=== PATIENT | female | born 1935 | race Caucasian/White ===

== ENCOUNTER → 2016-06-23 | Outpatient (CLI) | payer OTHER ==
[2016-04-07 13:32] VITALS: BP 117/61
== END ==
LOC: RAD 13:25
PROVIDERS: ATTEND Internal Medicine Cardiovascular Disease
DX: I42.8 Other cardiomyopathies (principal)
CPT/HCPCS: 93306

== ENCOUNTER → 2017-03-08 | Outpatient (CLI) | payer OTHER ==
[2016-04-07 13:32] VITALS: BP 117/61
[2017-03-08 09:47] LABS: BASOPHILS % (AUTO) 0.7 % (0.2-1.0); HEMATOCRIT 39.8 % (36.0-47.0); HEMOGLOBIN 13.5 g/dL (12.0-16.0); MEAN CORPUSCULAR HEMOGLOBIN 31.5 pg (27.0-34.0); MEAN CORPUSCULAR VOLUME 92.7 fL (80.0-100.0); MEAN PLATELET VOLUME 8.1 fL (7.4-11.0); MONOCYTES # (AUTO) 0.5 x10^3/uL (0.3-0.8); MONOCYTES % (AUTO) 8.6 % (0.0-13.0); NEUTROPHILS % (AUTO) 72.7 % (42.0-75.0); PLATELET COUNT 119 X10^3/uL (150.0-450.0); RED BLOOD COUNT 4.29 X10^6/uL (3.5-5.4); RED CELL DISTRIBUTION WIDTH 14.2 % (11.6-16.5); WHITE BLOOD COUNT 5.5 X10^3/uL (3.6-10.0)
[2017-03-08 10:03] LABS: HEMOGLOBIN A1C 5.8 % (4.5-6.2)
[2017-03-08 10:17] LABS: ALANINE AMINOTRANSFERASE 38 Units/L (12-78); ALBUMIN 3.8 g/dL (3.4-5.0); ALKALINE PHOSPHATASE 45 Units/L (46-116); ASPARTATE AMINO TRANSFERASE 25 Units/L (15-37); BLOOD UREA NITROGEN 18 mg/dL (7-18); CALCIUM 9.1 mg/dL (8.5-10.1); CARBON DIOXIDE 25.3 mmol/L (21-32); CHLORIDE 106 mmol/L (98-107); CHOL/HDL RATIO 2.3 (0.0-5.0); CHOLESTEROL 108 mg/dL (0-200); COR NA(FOR HYPERGLY) 142 mmol/L (136-145); CREATININE 1.08 mg/dL (0.55-1.02); FREE T4 (FREE THYROXINE) 1.37 ng/dL (0.76-1.46); HDL CHOLESTEROL 48 mg/dL (40-60); SODIUM 141 mmol/L (136-145); TOTAL PROTEIN 6.9 g/dL (6.4-8.2); TRIGLYCERIDES 90 mg/dL (0-150); TSH (3RD GENERATION) 0.366 uIU/mL (0.358-3.74); eGFR BLACK RACES > 60 (>60); eGFR NON BLACK RACES 52 (>60)
== END ==
LOC: LAB 08:44
PROVIDERS: ATTEND Internal Medicine Hematology & Oncology
DX: C92.10 Chronic myeloid leukemia, BCR/ABL-positive, not having achieved remission (principal); E11.9 Type 2 diabetes mellitus without complications; E03.8 Other specified hypothyroidism; Z79.899 Other long term (current) drug therapy
CPT/HCPCS: 36415; 80053; 80061; 81206; 83036; 84439; 84443; 85025

== ENCOUNTER → 2017-04-19 | Outpatient (CLI) | payer OTHER ==
[2016-04-07 13:32] VITALS: BP 117/61
== END ==
LOC: LAB 09:03
PROVIDERS: ATTEND Internal Medicine Gastroenterology
DX: K64.0 First degree hemorrhoids (principal)
CPT/HCPCS: 82270

== ENCOUNTER → 2017-06-12 | Outpatient (CLI) | payer OTHER ==
[2016-04-07 13:32] VITALS: BP 117/61
--- NOTE | 2017-06-12 15:31 | RAD ---
History: Right knee pain Study: Three views of the right knee including AP and lateral and oblique projections Comparison: May 14 2014 Findings: There is narrowing of the femoropatellar joint space with moderate osteophyte formation. Th ere is no knee joint effusion. There are moderate to severe lateral joint space compartment osteophyt es with joint space narrowing. There is an apparent loose body anteriorly in the knee joint that is i ncreased in size since 2014. There is prominent atherosclerotic calcification. No fracture is demonst rated. Impression: 1. 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 Increasing size of an anterior and apparently lateral loose body Reported By:
== END ==
LOC: RAD 14:46
PROVIDERS: ATTEND Internal Medicine
DX: M17.11 Unilateral primary osteoarthritis, right knee (principal)
CPT/HCPCS: 73560

== ENCOUNTER 2017-07-21 13:49 | Observation (INO) | payer OTHER ==
[2017-07-21 14:01] VITALS: BMI 29.9
[2017-07-21 14:21] LABS: BASOPHILS % (AUTO) 0.7 % (0.2-1.0); HEMATOCRIT 38.9 % (36.0-47.0); LYMPHOCYTES # (AUTO) 1.7 X10^3/uL (1.3-2.9); LYMPHOCYTES % (AUTO) 27.4 % (21.0-51.0); MEAN CORPUSCULAR HEMOGLOBIN 34.2 pg (27.0-34.0); MEAN CORPUSCULAR HGB CONC 35.9 g/dL (33.0-35.0); MEAN CORPUSCULAR VOLUME 95.2 fL (80.0-100.0); MEAN PLATELET VOLUME 7.9 fL (7.4-11.0); MONOCYTES # (AUTO) 0.5 x10^3/uL (0.3-0.8); MONOCYTES % (AUTO) 8.6 % (0.0-13.0); NEUTROPHILS # (AUTO) 3.9 x10^3/uL (2.2-4.8); NEUTROPHILS % (AUTO) 63.3 % (42.0-75.0); PLATELET COUNT 157 X10^3/uL (150.0-450.0); RED BLOOD COUNT 4.09 X10^6/uL (3.5-5.4); RED CELL DISTRIBUTION WIDTH 14.3 % (11.6-16.5); WHITE BLOOD COUNT 6.1 X10^3/uL (3.6-10.0)
--- NOTE | 2017-07-21 14:25 | DR.AMS ---
HPI - Time Seen Time seen: 14:05 - PCP Primary Care Physician: JOSELYN - Complaint Cheif Complaint Doctors Comments: Patient presented to the ED for evaluation of uncontrollable shaking. Family member states that this has happend before. Family members reports that she was short of breath. Chief Complaint:: FAMILY MEMBER STATES PT CAN'T BREATHE PT HELPED OUT OF CAR AND PT VERY ANXIOUS AND HYERVENITLATING AND SHE STATES " I WAS GETTING CLOTHING OUT OF THE DRYER AND I LOST MY BREATHE" Self Treatment fo Chief Complaint: LUNGS CLEAR, NO DISTRESS AND PT DENIES ANY PAIN ,,,, - Source History Provided: Patient, Family Member - Mode of Arrival Mode of Arrival: Wheelchair - Timing Onset of Chief Complaint: 07/21/17 PMH - PMH Past Medical History: Yes Past Medical History: Arthritis, Coronary Artery Disease, Diabetes, Hypertension , Hypothyroidism Past Surgical History: Yes Surgical History: Appendectomy, Bowel Resection, Cholecystectomy, Hysterectomy - Family History History of Family Medical Conditions: Yes Family Medical History: Diabetes Mellitus, Cancer, [place], Sudden Cardiac , Hypertension - Social History Does patient currently use any type of tobacco product: No Have you used tobacco products in the last 12 months: No Type of Tobacco Use: None Does any household member use tobacco: No Alcohol Use: None Do you use any recreational Drugs:: No Lives With: Family Lives Where: Home - infectious screening In the last 2 months have you had wt loss of >10#?: NO Have you had fever, night sweats or hemotysis?: No Have you traveled outside the country in the last 6 months?: No Isolation: Standard ROS - Review of Systems Eyes: No Symptoms Reported ENTM: No Symptoms Reported Respiratoy: No Symptoms Reported Cardiovascular: No Symptoms Reported Gastrointestinal/Abdominal: No Symptoms Reported Genitourinary: No Symptoms Reported Neurological: No Symptoms Reported Musculoskeletal: No Symptoms Reported Integumentary: No Symptoms Reported Hematologic/Lymphatic: No Symptoms Reported Endocrine: No Symptoms Reported Psychiatric: No Symptoms Reported All Other Systems: Reviewed and Negative PE - Vitals Vital Signs: Temp Pulse Resp BP BP BP BP 07/21/17 14:39 153/72 07/21/17 13:56 97.6 F 72 20 182/107 04/07/16 12:00 117/61 117/61 04/07/16 04:00 133/59 08/08/15 12:00 86/40 Pulse Ox 07/21/17 14:39 07/21/17 13:56 99 04/07/16 12:00 04/07/16 04:00 08/08/15 12:00 - General Limitations: No Limitations General Appearance: Alert, In No Apparent Distress - Head Head Exam: Normal Inspection, Atraumatic Head Exam Physical: Laceration - Eyes Eye exam: Normal Appearance Pupils: Regular, Round: Left, Reactive: Left, Non Reactive/Fixed: Right - ENT ENT Exam: Normal Exam, Normal Oropharynx External Ear Exam: Normal External Inspection TM/Canal Exam: Bilateral Normal Nose Exam: Normal Nose Exam Mouth Exam: Normal Inspection Throat Exam: Normal Inspection - Neck Neck Exam: Normal Inspection, Full ROM - Chest Chest Inspection: Normal Inspection, Symmetric Chest Wall Rise - Respiratory Respiratory Exam: Normal Lung Sounds Bilat Respiratory Exam: Bilateral Clear to Auscultation - Cardiovascular Cardiovascular Exam: Regular Rate, Normal Rhythm - Abdominal Exam Abdominal Exam: Normal Inspection, Normal Bowel Sounds Abdominal Tenderness: negative: RUQ, RLQ, LUQ, LLQ, Epigastrium, Suprapubic, Diffuse, Mild, Moderate, Severe, Other - Extremities Extremities Exam: Normal Inspection, Full ROM - Back Back Exam: Normal Inspection, Full ROM - Neurological Neurological Exam: Alert, Oriented X3, CN II-XII Intact Speech: Fluid Speech Cranial Nerve Exam: EOM Function (II, III, IV, ): Normal Cerebellar Function: Finger to Nose: Normal Motor Strength - LUE: 3/5 Motor Strength - RUE: 3/5 Motor Strength - LLE: 3/5 Sensory Exam Upper Extremity: Light Touch: Normal DTR: achilles tendon (L): 2+ - Psychological Psychiatric Exam: Anxious - Skin Skin Exam: Warm, Dry, Intact MDM - Differential Diagnosis Metabolic: Dehydration Course - Reevaluation 1st: Improved - Consultation Called: 15:20 (Dr Olson agreed to admit for further evalaution) ROR - Labs Reviewed Result Diagrams: 07/21/17 14:02 07/21/17 14:02 Laboratory: WBC 6.1 X10^3/uL (3.6-10.0) 07/21/17 14:02 RBC 4.09 X10^6/uL (3.5-5.4) 07/21/17 14:02 Hgb 14.0 g/dL (12.0-16.0) 07/21/17 14:02 Hct 38.9 % (36.0-47.0) 07/21/17 14:02 MCV 95.2 fL (80.0-100.0) 07/21/17 14:02 MCH 34.2 pg (27.0-34.0) H 07/21/17 14:02 MCHC 35.9 g/dL (33.0-35.0) H 07/21/17 14:02 RDW 14.3 % (11.6-16.5) 07/21/17 14:02 Plt Count 157 X10^3/uL (150.0-450.0) 07/21/17 14:02 MPV 7.9 fL (7.4-11.0) 07/21/17 14:02 Neut % (Auto) 63.3 % (42.0-75.0) 07/21/17 14:02 Lymph % (Auto) 27.4 % (21.0-51.0) 07/21/17 14:02 Otero % (Auto) 8.6 % (0.0-13.0) 07/21/17 14:02 Eos % (Auto) 0.0 % (0.9-2.9) L 07/21/17 14:02 Baso % (Auto) 0.7 % (0.2-1.0) 07/21/17 14:02 Neut # (Auto) 3.9 x10^3/uL (2.2-4.8) 07/21/17 14:02 Lymph # (Auto) 1.7 X10^3/uL (1.3-2.9) 07/21/17 14:02 Otero # (Auto) 0.5 x10^3/uL (0.3-0.8) 07/21/17 14:02 Eos # (Auto) 0.0 x10^3/uL (0.0-0.2) 07/21/17 14:02 Baso # (Auto) 0.0 X10^3/uL (0.0-0.1) 07/21/17 14:02 Absolute Nucleated RBC 0.1 /100WBC 07/21/17 14:02 D-Dimer 1040 ng/mL (0-400) H* 07/21/17 14:02 Sodium 134 mmol/L (136-145) L 07/21/17 14:02 Corrected Sodium 136 mmol/L (136-145) 07/21/17 14:02 Potassium 2.6 mmol/L (3.5-5.1) L* 07/21/17 14:02 Chloride 95 mmol/L (98-107) L 07/21/17 14:02 Carbon Dioxide 22.6 mmol/L (21-32) 07/21/17 14:02 BUN 17 mg/dL (7-18) 07/21/17 14:02 Creatinine 1.37 mg/dL (0.55-1.02) H 07/21/17 14:02 Est GFR (MDRD) Af Amer 48 (>60) L 07/21/17 14:02 Est GFR (MDRD) Non-Af 39 (>60) L 07/21/17 14:02 Glucose 171 mg/dL (65-99) H 07/21/17 14:02 Calcium 9.1 mg/dL (8.5-10.1) 07/21/17 14:02 Corrected Calcium TNP 07/21/17 14:02 Magnesium 1.6 mg/dL (1.7-2.9) L 07/21/17 14:02 Total Bilirubin 1.10 mg/dL (0.2-1.0) H 07/21/17 14:02 AST 32 Units/L (15-37) 07/21/17 14:02 ALT 39 Units/L (12-78) 07/21/17 14:02 Alkaline Phosphatase 46 Units/L (46-116) 07/21/17 14:02 Creatine Kinase 87 Units/L (26-192) 07/21/17 14:02 CK-MB (CK-2) 2.5 ng/mL (0-4.0) 07/21/17 14:02 CK/CKMB % Calc 2.9 % (<4) 07/21/17 14:02 Troponin I < 0.02 ng/mL (0-1.5) 07/21/17 14:02 Total Protein 7.9 g/dL (6.4-8.2) 07/21/17 14:02 Albumin 4.7 g/dL (3.4-5.0) 07/21/17 14:02 Globulin 3.2 g/dL (2.5-4.5) 07/21/17 14:02 Albumin/Globulin Ratio 1.5 Ratio (1.1-2.1) 07/21/17 14:02 - XRAY XRAY Interpreted by: Radiologist (Chest: Continued normal heart size with essentially clear lungs and pleural spaces. Multiple metallic artifacts are projected over the chest. There is no change in position of cardiac pacemaker although clothing artifacts partly obscure the ventricular lead. Impression: No acute chest findings.) - Diagnosis Discharge Problem: Hypokalemia, Elevated D-Dimer r/o PE, Dyspnea - Discharge Plan Condition: Stable - Follow ups/Referrals Follow ups/Referrals: JOSELYN AGUILERA [Primary Care Provider] - 3 days - Instructions
[2017-07-21 14:41] LABS: ALANINE AMINOTRANSFERASE 39 Units/L (12-78); ALBUMIN 4.7 g/dL (3.4-5.0); ALKALINE PHOSPHATASE 46 Units/L (46-116); ASPARTATE AMINO TRANSFERASE 32 Units/L (15-37); BLOOD UREA NITROGEN 17 mg/dL (7-18); CALCIUM 9.1 mg/dL (8.5-10.1); CARBON DIOXIDE 22.6 mmol/L (21-32); CHLORIDE 95 mmol/L (98-107); CKMB % 2.9 % (<4); COR NA(FOR HYPERGLY) 136 mmol/L (136-145); CREATINE KINASE 87 Units/L (26-192); CREATINE KINASE MB 2.5 ng/mL (0-4.0); CREATININE 1.37 mg/dL (0.55-1.02); MAGNESIUM 1.6 mg/dL (1.7-2.9); SODIUM 134 mmol/L (136-145); TOTAL PROTEIN 7.9 g/dL (6.4-8.2); TROPONIN I < 0.02 ng/mL (0-1.5); eGFR BLACK RACES 48 (>60); eGFR NON BLACK RACES 39 (>60)
--- NOTE | 2017-07-21 14:44 | RAD ---
Examination: Portable AP chest History: SOB Comparison reference 03/11/2016 Findings: Continued normal heart size with essentially clear lungs and pleural spaces. Multiple metal lic artifacts are projected over the chest. There is no change in position of cardiac pacemaker altho ugh clothing artifacts partly obscure the ventricular lead. Impression: No acute chest findings. See above. Reported By:
[2017-07-21] MEDS ORDERED: K-LYTE EFFERVESCENT ONE (14:46)
[2017-07-21] MEDS ORDERED: K-LYTE EFFERVESCENT PO ONE (15:00)
[2017-07-21] MEDS ORDERED: NS IV SCH ×4 (16:00→22:50)
[2017-07-21] MEDS ORDERED: POTASSIUM CHLORIDE IV SCH ×4 (16:00→22:50)
[2017-07-21] MEDS ORDERED: NS + KCL 20 MEQ/L 1,000 ML IV ONE (16:02)
[2017-07-21] MEDS ORDERED: HumuLIN R SUBCUT PRN (16:15)
[2017-07-21 16:57] LABS: BILIRUBIN,URINE NEGATIVE (NEGATIVE); BLOOD/HEMOGLOBIN,URINE NEGATIVE (NEGATIVE); GLUCOSE, URINE NEGATIVE (NEGATIVE); KETONES,URINE NEGATIVE (NEGATIVE); LEUKOCYTE ESTERASE ,URINE NEGATIVE (NEGATIVE); NITRITES,URINE NEGATIVE (NEGATIVE); PROTEIN,URINE NEGATIVE (NEGATIVE); UROBILINOGEN,URINE NORMAL (NORMAL)
[2017-07-21 16:59] LABS: APPEARANCE,URINE CLEAR (CLEAR); COLOR,URINE YELLOW (YELLOW)
[2017-07-21] MEDS ORDERED: SNACK - Diabetic Appropriate PO SCH (20:00)
[2017-07-22 05:26] LABS: BASOPHILS % (AUTO) 0.8 % (0.2-1.0); EOSINOPHILS % (AUTO) 0.1 % (0.9-2.9); HEMATOCRIT 32.8 % (36.0-47.0); HEMOGLOBIN 11.8 g/dL (12.0-16.0); LYMPHOCYTES # (AUTO) 1.1 X10^3/uL (1.3-2.9); MEAN CORPUSCULAR HEMOGLOBIN 34.1 pg (27.0-34.0); MEAN CORPUSCULAR HGB CONC 36.1 g/dL (33.0-35.0); MEAN CORPUSCULAR VOLUME 94.6 fL (80.0-100.0); MEAN PLATELET VOLUME 7.6 fL (7.4-11.0); MONOCYTES # (AUTO) 0.5 x10^3/uL (0.3-0.8); NEUTROPHILS % (AUTO) 56.1 % (42.0-75.0); PLATELET COUNT 122 X10^3/uL (150.0-450.0); RED BLOOD COUNT 3.47 X10^6/uL (3.5-5.4); RED CELL DISTRIBUTION WIDTH 14.2 % (11.6-16.5); WHITE BLOOD COUNT 3.6 X10^3/uL (3.6-10.0)
[2017-07-22 05:34] LABS: ALANINE AMINOTRANSFERASE 28 Units/L (12-78); ALBUMIN 3.3 g/dL (3.4-5.0); ALKALINE PHOSPHATASE 34 Units/L (46-116); ASPARTATE AMINO TRANSFERASE 22 Units/L (15-37); BLOOD UREA NITROGEN 11 mg/dL (7-18); CALCIUM 7.7 mg/dL (8.5-10.1); CARBON DIOXIDE 27.8 mmol/L (21-32); CHLORIDE 102 mmol/L (98-107); COR CA(FOR HYPOALB) 8.3 mg/dL (8.5-10.1); COR NA(FOR HYPERGLY) 137 mmol/L (136-145); CREATININE 0.93 mg/dL (0.55-1.02); SODIUM 137 mmol/L (136-145); TOTAL PROTEIN 5.9 g/dL (6.4-8.2); eGFR BLACK RACES > 60 (>60); eGFR NON BLACK RACES > 60 (>60)
[2017-07-22] MEDS ORDERED: NS 1000 ML 1,000 ML IV SCH (09:00)
[2017-07-22] MEDS ORDERED: K-DUR TAB 20 MEQ PO SCH (09:00)
[2017-07-22 10:50] LABS: BILIRUBIN,URINE NEGATIVE (NEGATIVE); BLOOD/HEMOGLOBIN,URINE NEGATIVE (NEGATIVE); GLUCOSE, URINE NEGATIVE (NEGATIVE); KETONES,URINE NEGATIVE (NEGATIVE); LEUKOCYTE ESTERASE ,URINE 1+ (NEGATIVE); NITRITES,URINE NEGATIVE (NEGATIVE); PROTEIN,URINE 1+ (NEGATIVE); UROBILINOGEN,URINE 1+ (NORMAL)
[2017-07-22 10:56] LABS: APPEARANCE,URINE CLEAR (CLEAR); COLOR,URINE YELLOW (YELLOW)
[2017-07-22 11:07] LABS: RBC,URINE NONE SEEN /HPF (NONE SEEN)
[2017-07-22 11:08] LABS: BACTERIA,URINE TRACE /HPF (NEGATIVE); HYALINE CASTS, URINE RARE /LPF (NEGATIVE); MUCUS,URINE MODERATE /HPF (NEGATIVE); SQUAMOUS EPITHELIAL CELL,UR MANY /HPF (NEGATIVE)
--- NOTE | 2017-07-22 12:43 | CT ---
HISTORY: Shortness of breath Study: CTA chest for pulmonary embolus Comparison: None Technique: Axial post-contrast images with coronal, sagittal, and three-dimensional maximum intensity projection images obtained and evaluated. Dose reduction procedures were used with mA/kv adjusted fo r body size. Findings: There is no evidence for acute pulmonary thromboembolic disease. Examination of the mediastinum demo nstrated no evidence for mediastinal masses, enlarged mediastinal or enlarged hilar adenopathy or ple ural effusions. The thoracic aorta is within normal limits. Coronary artery calcifications are presen t. No chest wall or axillary abnormality is identified. Those portions of the upper abdominal organs visualized were within normal limits. Incidental note was made of bilateral adrenal adenomas. Examina tion of the lung dobbs demonstrated no significant nodules, masses, alveolar infiltrates, areas of c onsolidation, peribronchial thickening, or bronchiectasis. IMPRESSION: No evidence for acute pulmonary thromboembolic disease Lungs clear Bilateral adrenal adenomas, benign Reported By:
[2017-07-22] MEDS: MAGNESIUM SULFATE 1 GM/100 mL PREMIX 2 GM/200 ML BAG IV SCH ×2 (15:23→16:23)
[2017-07-22] MEDS ORDERED: MAGNESIUM SULFATE 1 GM/100 mL PREMIX 2 GM/200 ML BAG IV ONE (15:23)
[2017-07-22] MEDS ORDERED: LEVAQUIN TAB 500 MG PO SCH (17:00)
[2017-07-22 17:56] VITALS: BP 118/58
== END 2017-07-22 17:56 | disposition home or self-care (01) | DRG 641 ==
LOC: ER 13:49 → INTOOBSV 15:29 → ICU 15:29
PROVIDERS: ADMIT Internal Medicine; ATTEND Internal Medicine
DX: E87.6 Hypokalemia (principal); C94.80 Other specified leukemias not having achieved remission; R06.09 Other forms of dyspnea; R53.1 Weakness; I10 Essential (primary) hypertension; E03.8 Other specified hypothyroidism; K52.89 Other specified noninfective gastroenteritis and colitis; I25.10 Atherosclerotic heart disease of native coronary artery without angina pectoris; E11.65 Type 2 diabetes mellitus with hyperglycemia; Z79.01 Long term (current) use of anticoagulants; R94.31 Abnormal electrocardiogram [ECG] [EKG]; Z79.899 Other long term (current) drug therapy; R94.4 Abnormal results of kidney function studies
CPT/HCPCS: 36415; 71045; 71275; 80053; 81001; 81003; 82550; 82553; 83735; 84132; 84484; 85025; 85378; 93005; 93010; 96365; 96367; 99284; A4216; A4222; G0378; J3480

== ENCOUNTER 2018-08-28 14:54 | Observation (INO) ==
[2018-08-28 17:03] VITALS: BMI 33.0
[2018-08-28] MEDS ORDERED: ZOFRAN INJ 4 MG VIAL IVP PRN (17:05)
--- NOTE | 2018-08-28 17:09 | DR.H&P ---
H&P - History & Physical for Day of: H&P Date: 08/28/18 - Chief Complaint Chief Complaint: intractable abdominal pain, intractable n/v. weakness, dehydration - History of Present Illness History of Present Illness: 82 WF DIRECT ADMIT WITH EPIGASTRIC TENDERNESS CO N/V WITH POOT APPETITE. PT STATES SHE CANNOT EAT DUE TO SEVERE NAUSEA AND VOMITING. PT HAD CT ABD PELVIS ON 07/31 WITH ABNORMAL FINDINGS. PT HAS HX LEUKEMIA. PT HAS BEEN ON PO ZANTAC AND BENTYL WITHOUT IMPROVEMENT. - Past Medical History Past Medical History: Arthritis, Coronary Artery Disease, Diabetes, Hypertension, Hypothyroidism Additional Medical History: S/P PACEMAKER. LEUKEMIA - Past Surgical History Surgical History: Appendectomy, Bowel Resection, Cholecystectomy, Hysterectomy, Other - Family History Family Medical History: Diabetes Mellitus, Cancer, ID, Coronary Artery Disease, Heart Failure, Hypertension - Social History Does patient currently use any type of tobacco product: No Have you used tobacco products in the last 12 months: No Type of Tobacco Use: Cigarettes Does any household member use tobacco: No Alcohol Use: None Drug Use: Prescription Drugs - Medications Home Medications: No Known Drug Allergies Allergy (Verified 07/21/17 13:56) - Review of Systems Constitutional: Weakness Eyes: No Symptoms Reported ENT: No Symptoms Reported Respiratory: No Symptoms Reported Cardiovascular: No Symptoms Reported Gastrointestinal: Nausea, Vomiting, Abdominal Pain Genitourinary: No Symptoms Reported Musculoskeletal: No Symptoms Reported Skin: No Symptoms Reported Neurological: Weakness - Physical Exam Vital Signs: Blood Pressure [Left Calf] 86/40 Blood Pressure [Right Arm] 118/58 Blood Pressure [Left Arm] 161/71 Blood Pressure 118/58 Oriented: Normal Eyes: Normal, Diplopia Nose: Normal Throat: Normal Respiratory: Clear Throughout Cardiovascular: Normal, Other (PACE MAKER PRESENT) : Normal Auscultation: Bowel Sounds: Normal Palpation: Other (HIATAL HERNIA) Tenderness: Epigastric Skin: Decreased Turgur Musculoskeletal: Normal Psychiatric: Anxiety Affect: Anxious Speech Pattern: Clear, Appropriate - Assessment/Plan (1) Epigastric abdominal pain Status: Acute Plan: ADMIT, NPO AFTER MID NIGHT. GI CONSULT, PPI THERAPY. ADMISSION LABS, RENAL US DUE RENAL MASS ON CT 07/31 AT [facility]. IV HYDRATION, PAIN AND NAUSEA CONTROL (2) Nausea & vomiting Status: Acute - Allergies Allergies/Adverse Reactions: Allergies Allergy/AdvReac Type Severity Reaction Status Date / Time No Known Drug Allergies Allergy Verified 07/21/17 13:56
[2018-08-28 17:27] LABS: BASOPHILS % (AUTO) 0.8 % (0.2-1.0); EOSINOPHILS % (AUTO) 0.1 % (0.9-2.9); HEMATOCRIT 35.3 % (36.0-47.0); HEMOGLOBIN 12.2 g/dL (12.0-16.0); LYMPHOCYTES # (AUTO) 0.8 X10^3/uL (1.3-2.9); LYMPHOCYTES % (AUTO) 20.3 % (21.0-51.0); MEAN CORPUSCULAR HEMOGLOBIN 33.3 pg (27.0-34.0); MEAN CORPUSCULAR HGB CONC 34.6 g/dL (33.0-35.0); MEAN CORPUSCULAR VOLUME 96.1 fL (80.0-100.0); MEAN PLATELET VOLUME 7.4 fL (7.4-11.0); MONOCYTES # (AUTO) 0.4 x10^3/uL (0.3-0.8); MONOCYTES % (AUTO) 11.3 % (0.0-13.0); NEUTROPHILS # (AUTO) 2.7 x10^3/uL (2.2-4.8); NEUTROPHILS % (AUTO) 67.5 % (42.0-75.0); PLATELET COUNT 138 X10^3/uL (150.0-450.0); RED BLOOD COUNT 3.67 X10^6/uL (3.5-5.4); RED CELL DISTRIBUTION WIDTH 14.3 % (11.6-16.5)
[2018-08-28 17:40] LABS: ALANINE AMINOTRANSFERASE 26 Units/L (12-78); ALBUMIN 4.6 g/dL (3.4-5.0); ALKALINE PHOSPHATASE 43 Units/L (46-116); ASPARTATE AMINO TRANSFERASE 26 Units/L (15-37); BLOOD UREA NITROGEN 14 mg/dL (7-18); CALCIUM 9.5 mg/dL (8.5-10.1); CARBON DIOXIDE 26.1 mmol/L (21-32); CHLORIDE 97 mmol/L (98-107); COR NA(FOR HYPERGLY) 135 mmol/L (136-145); CREATININE 1.16 mg/dL (0.55-1.02); MAGNESIUM 1.7 mg/dL (1.7-2.9); SODIUM 135 mmol/L (136-145); TOTAL PROTEIN 7.5 g/dL (6.4-8.2); eGFR NON BLACK RACES 48 (>60)
[2018-08-28] MEDS ORDERED: NS 1000 ML 1,000 ML ONE (18:25)
[2018-08-28] MEDS: NS 1000 ML 1,000 ML IV SCH (18:32)
[2018-08-28] MEDS: PROTONIX INJ 40 MG VIAL IVP SCH (22:00)
[2018-08-28] MEDS ORDERED: PROTONIX INJ 40 MG VIAL ONE (22:23)
[2018-08-29 05:27] LABS: BASOPHILS % (AUTO) 1.2 % (0.2-1.0); EOSINOPHILS % (AUTO) 0.1 % (0.9-2.9); HEMATOCRIT 30.9 % (36.0-47.0); HEMOGLOBIN 10.9 g/dL (12.0-16.0); LYMPHOCYTES # (AUTO) 0.8 X10^3/uL (1.3-2.9); LYMPHOCYTES % (AUTO) 30.2 % (21.0-51.0); MEAN CORPUSCULAR HEMOGLOBIN 33.7 pg (27.0-34.0); MEAN CORPUSCULAR HGB CONC 35.2 g/dL (33.0-35.0); MEAN CORPUSCULAR VOLUME 95.9 fL (80.0-100.0); MEAN PLATELET VOLUME 8.2 fL (7.4-11.0); MONOCYTES # (AUTO) 0.3 x10^3/uL (0.3-0.8); MONOCYTES % (AUTO) 12.8 % (0.0-13.0); NEUTROPHILS # (AUTO) 1.4 x10^3/uL (2.2-4.8); NEUTROPHILS % (AUTO) 55.7 % (42.0-75.0); PLATELET COUNT 114 X10^3/uL (150.0-450.0); RED BLOOD COUNT 3.22 X10^6/uL (3.5-5.4); RED CELL DISTRIBUTION WIDTH 14.4 % (11.6-16.5); WHITE BLOOD COUNT 2.5 X10^3/uL (3.6-10.0)
[2018-08-29 05:41] LABS: BILIRUBIN,URINE NEGATIVE (NEGATIVE); BLOOD/HEMOGLOBIN,URINE 1+ (NEGATIVE); GLUCOSE, URINE NEGATIVE (NEGATIVE); KETONES,URINE NEGATIVE (NEGATIVE); LEUKOCYTE ESTERASE ,URINE 2+ (NEGATIVE); NITRITES,URINE NEGATIVE (NEGATIVE); PROTEIN,URINE 1+ (NEGATIVE); UROBILINOGEN,URINE NORMAL (NORMAL)
[2018-08-29 05:41] LABS: ALANINE AMINOTRANSFERASE 19 Units/L (12-78); ALBUMIN 3.5 g/dL (3.4-5.0); ALKALINE PHOSPHATASE 30 Units/L (46-116); ASPARTATE AMINO TRANSFERASE 19 Units/L (15-37); BLOOD UREA NITROGEN 12 mg/dL (7-18); CALCIUM 8.8 mg/dL (8.5-10.1); CARBON DIOXIDE 24.1 mmol/L (21-32); CHLORIDE 101 mmol/L (98-107); CREATININE 1.01 mg/dL (0.55-1.02); SODIUM 136 mmol/L (136-145); TOTAL PROTEIN 6.1 g/dL (6.4-8.2); eGFR NON BLACK RACES 56 (>60)
[2018-08-29] MEDS: NS 1000 ML 1,000 ML IV SCH ×2 (05:42→11:32)
[2018-08-29 05:51] LABS: APPEARANCE,URINE HAZY (CLEAR); BACTERIA,URINE 4+ /HPF (NEGATIVE); COLOR,URINE PALE YELLOW (YELLOW); SQUAMOUS EPITHELIAL CELL,UR RARE /HPF (NEGATIVE)
[2018-08-29] MEDS ORDERED: ROCEPHIN VIAL 1 GRAM IVP SCH (09:00)
[2018-08-29] MEDS ORDERED: NORVASC TAB 10 MG PO SCH (09:00)
[2018-08-29] MEDS ORDERED: LOPRESSOR TAB 25 MG PO SCH (09:00)
[2018-08-29] MEDS ORDERED: DIPRIVAN VIAL 20 ML ONE ×2 (10:16→10:17)
[2018-08-29] MEDS ORDERED: DIPRIVAN VIAL ONE (10:53)
--- NOTE | 2018-08-29 10:58 | OR.GENERIC ---
Post-Op Note Generic - Post-Op Note Operative Report: EGD with bx . findings : moderate gastroduodenitis. reflux esophagitis . small esophageal varices without bleeding . will advance diet , same PPI .. awaiting Bx report .
--- NOTE | 2018-08-29 11:04 | US ---
HISTORY: Renal mass Study: Bilateral renal and bladder ultrasound Comparison: CT scan of the abdomen and pelvis done 07/30/2018. Technique: Grayscale, color and duplex Doppler evaluation of the kidneys is provided. Bladder survey images are provided also. Findings: The right adrenal mass is again seen measuring about 2.2 cm in diameter. The left adrenal mass is not seen with clarity. Right kidney measures 4.48 x 5.11 x 8.26 cm. Cortical thickness is 1.3 cm. Resistive index is 0.45. There is a midpole cyst present on the right involving the cortex which measures 1.32 cm in diameter. No solid mass, stone or hydronephrosis is seen. Color Doppler studies of the right kidney are normal. No perinephric fluid is seen. Left kidney measures 4.69 x 4.76 x 8.15 cm. Cortical thickness of 1.51 cm. Resistive index is 0.61. The fatty mass in the lower pole of the left kidney seen at CT is not identified at ultrasound today. No solid mass, stone or hydronephrosis is seen. No perinephric fluid is seen. Color Doppler studies of the left kidney are normal. Corticomedullary echo differentiation of both kidneys is normal. A abdominal aorta is unremarkable. The urinary bladder is nearly completely empty with an estimated volume of 4.32 cc. IMPRESSION: 1.32 cm simple cortical cyst in the midpole of the right kidney. 2.2 cm right adrenal mass. The left adrenal mass is not seen on today's examination. 8 mm fatty mass in the lower pole of the left kidney observed on CT, is not identified on the ultrasound examination. No evidence of stone or hydronephrosis. Small urinary bladder. Reported By:
[2018-08-29] MEDS: PROTONIX INJ 40 MG VIAL IVP SCH (11:38)
[2018-08-29] MEDS ORDERED: CARAFATE ORAL SUSP PO SCH ×2 (13:55→16:30)
[2018-08-29] MEDS ORDERED: CARAFATE ONE (13:58)
[2018-08-29] MEDS ORDERED: CARAFATE ORAL SUSP ONE (14:00)
[2018-08-29] MEDS ORDERED: STERILE WATER IRRIGATION ONE (15:45)
[2018-08-29 16:02] VITALS: BP 122/56
[2018-08-29] MEDS ORDERED: SYNTHROID 75 mcg TAB PO SCH (16:30)
== END 2018-08-29 15:15 | disposition home or self-care (01) ==
LOC: MED/SURG
PROVIDERS: ADMIT Internal Medicine; ATTEND Internal Medicine
DX: I25.10 Atherosclerotic heart disease of native coronary artery without angina pectoris; K21.0 Gastro-esophageal reflux disease with esophagitis; K90.49 Malabsorption due to intolerance, not elsewhere classified; Z95.0 Presence of cardiac pacemaker; R53.1 Weakness; E11.65 Type 2 diabetes mellitus with hyperglycemia; R10.13 Epigastric pain; E86.0 Dehydration; K29.60 Other gastritis without bleeding; R11.2 Nausea with vomiting, unspecified; N39.0 Urinary tract infection, site not specified; E03.8 Other specified hypothyroidism; I10 Essential (primary) hypertension; B96.29 Other Escherichia coli [E. coli] as the cause of diseases classified elsewhere; R63.0 Anorexia; I85.00 Esophageal varices without bleeding
CPT/HCPCS: 36415; 71010; 71045; 76770; 80053; 81001; 83735; 85025; 87086; 87088; 87186; 87338; 99100; A4217; A4222; C9113; G0378; J0696; J2704; J7030

== ENCOUNTER 2020-04-02 11:24 | Inpatient (IN) ==
[2020-04-02 11:38] VITALS: BMI 27.4
--- NOTE | 2020-04-02 12:09 | DR.DIZZY ---
HPI Time seen Time Seen by Provider: 04/02/20 12:08 PCP Primary Care Physician: JOSELYN AGUILERA HPI Comment HPI Comment: PATIENT IS 84YR OLD FEMALE IN ER WITH LOW BLOOD PRESSURE, GENERALIZED WEAKNESS AND TREMORS.HISTORY TREMORS AND TAKE MEDICATION FOR SAME. PATIENT SYMPTOMS GOT WORSE TPDAY. NO FEVER. PATIENT HAVE EDEMA ANKLES AND FEET WITH INCREASING SOB. NO FEVER. HAVE NOT TAKEN HER MORNING MEDICATIONS TODAY. SHE IS DIZZY. Complaint Chief Complaint Doctor Comments: GENERALIZED WEAKNESS, LOW BLOOD PRESSURE AND TREMORS. Chief Complaint:: EMS TONED OUT TO PT FOR WEAKNESS AND LOW BLOOD PRESSURE. PT APPEARS TO BE WEAK,VOICE IS SHAKY AND A LITTLE CONFUSED. COVID-19 Coronavirus risk:travel/contact w/high risk person: No Has patient experienced Coronavirus symptoms: No Nurses Notes Reviewed Nurses Notes Review: Yes Source History Provided: Patient and EMS Mode of Arrival Mode of Arrival: Wheelchair Timing Onset of Chief Complaint: 04/02/20 Came on: Suddenly Duration Duration: Constant Duration: Days Location of Weakness Weakness Location: Generalized Context Onset: At rest History of: None Stroke Symptoms: Dizziness Severity Severity: Abnormal activity level Modifying factors Worsens: Other (EXERTION.) Associated signs and symptoms Associated Signs and Symptoms: Weak PMH PMH Past Medical History: Yes Past Medical History: Dyslipidemia and Hypertension Past Surgical History: Yes Surgical History: Appendectomy, Bowel Resection, Cholecystectomy, Hysterectomy and Other Family History History of Family Medical Conditions: Yes Family Medical History: Hypertension Social History Does any household member use tobacco: No Alcohol Use: None Do you use any recreational Drugs:: No Lives With: Family Lives Where: Home Infectious screening In the last 2 months have you had wt loss of >10#?: NO Have you had fever, night sweats or hemotysis?: No Have you traveled outside the country in the last 6 months?: No Isolation: Standard ROS Review of Systems Constitutional: See HPI, Weakness and Fatigue; negative Fever Eyes: No Symptoms Reported and See HPI; negative Blurred Vision and Diplopia ENTM: See HPI and Nose Congestion; negative Nose Discharge Respiratoy: See HPI, Moist Cough, Short of Breath and Wheezing Cardiovascular: See HPI and Chest Pain (TIGHTNESS.) Gastrointestinal/Abdominal: No Symptoms Reported and See HPI; negative Abdominal Pain, Diarrhea, Nausea and Vomiting Genitourinary: No Symptoms Reported and See HPI; negative Dysuria Neurological: See HPI, Weakness and Dizziness; negative Headache Musculoskeletal: See HPI and Back Pain; negative Muscle Pain Integumentary: No Symptoms Reported and See HPI; negative Change in Color, Rash and Juandice Hematologic/Lymphatic: No Symptoms Reported, See HPI and Easy Bruising; negative Swollen Glands Endocrine: No Symptoms Reported and See HPI; negative Increased Thirst and I ncreased Urine Psychiatric: No Symptoms Reported and See HPI All Other Systems: Reviewed and Negative PE Vital Signs Vitals: Temperature 98.6 F Pulse Rate 55 Respiratory Rate 25 Blood Pressure [Left Calf] 86/40 Blood Pressure [Right Arm] 126/59 Blood Pressure [Left Arm] 161/71 Blood Pressure 132/77 O2 Sat by Pulse Oximetry 100 General Limitations: No Limitations General Appearance: Alert and In No Apparent Distress Head Head Exam: Normal Inspection and Atraumatic Eyes Eye exam: Normal Appearance and PERRL; negative Scleral Icterus and Conjunctival Injection Pupils: Regular, Round: Bilateral and Reactive: Bilateral Sclera/Conjunctival: Normal Inspection: Bilateral ENT ENT Exam: Normal Exam, Normal Oropharynx, Normal External Ear Exam and TM's Normal Bilaterally Neck Neck Exam: Normal Inspection, Full ROM and Trachea Midline; negative Tenderness and Lymphadenopathy Chest Chest Inspection: Normal Inspection and Symmetric Chest Wall Rise; negative Tenderness Respiratory Respiratory Exam: Normal Lung Sounds Bilat and Respiratory Distress; negative Accessory Muscle Use and Chest Wall Tenderness Respiratory Exam: Bilateral: Rhonchi and Lower: Rhonchi Cardiovascular Cardiovascular Exam: Regular Rate, Normal Rhythm, Normal Heart Sounds, Systolic Murmur and +S3; negative Diastolic Murmur Abdominal Exam Abdominal Exam: Normal Inspection, Normal Bowel Sounds and Soft; negative Tenderness Rectal Rectal Exam: Deferred Extremeties Extremities Exam: Full ROM, Normal Capillary Refill and Edema; negative Calf Tenderness Back Back Exam: Normal Inspection and Full ROM; negative (R) CVA Tenderness and (L) CVA Tenderness Neurologic Neurological Exam: Alert; negative Motor Sensory Deficit Patient Oriented To: Person and Place; negative Time Speech: negative Fluid Speech Cranial Nerve Exam: EOM Function (II, III, IV, ): Normal, Facial Sensation (V): Normal, Facial Palsy (VII): Normal, Gag reflex (XI): Normal and Tongue Deviation: Normal Motor Strength - LUE: 5/5 Motor Strength - RUE: 5/5 Motor Strength - LLE: 5/5 Motor Strength - RLE: 5/5 Upper Motor Neuron Exam: Babinski Sign: Normal Psychiatric Psychiatric Exam: Normal Affect and Flat Affect Skin Skin Exam: Dry MDM Additional Information Obtained Additional Information Obtained From: Old Records Differential Diagnosis Differential Diagnosis: CVA, Dehydration, Dysrhythmia, Electrolyte disorder, Hypoglycemia, Labyrinthitis, Myocardial infarction, TIA and Central Vertigo Differential Diagnosis Comment: PNEUMONIA, CHF. COURSE Treatment Treatment: SEE ORDERS. NS 1L IV BOLUS, ROCEPHIN 1GM IVPB. Consultation Consultation Comments: DISCUSSED PATIENT WITH . HE WILL ADMIT PATIENT. Education/Counseling Education/Counseling: Patient Educated On: Diagnosis and Needs for Follow Up ROR Labs Reviewed Laboratory Results Reviewed?: Yes Result Diagrams: 04/02/20 13:10 04/02/20 13:10 Laboratory: WBC 3.9 X10^3/uL (3.6-10.0) 04/02/20 13:10 RBC 2.72 X10^6/uL (3.5-5.4) L 04/02/20 13:10 Hgb 9.3 g/dL (12.0-16.0) L 04/02/20 13:10 Hct 27.2 % (36.0-47.0) L 04/02/20 13:10 MCV 100.3 fL (80.0-100.0) H 04/02/20 13:10 MCH 34.3 pg (27.0-34.0) H 04/02/20 13:10 MCHC 34.2 g/dL (33.0-35.0) 04/02/20 13:10 RDW 14.5 % (11.6-16.5) 04/02/20 13:10 Plt Count 162 X10^3/uL (150.0-450.0) 04/02/20 13:10 MPV 7.7 fL (7.4-11.0) 04/02/20 13:10 Neut % (Auto) 81.6 % (42.0-75.0) H 04/02/20 13:10 Lymph % (Auto) 10.9 % (21.0-51.0) L 04/02/20 13:10 Buchanan % (Auto) 6.8 % (0.0-13.0) 04/02/20 13:10 Eos % (Auto) 0.0 % (0.9-2.9) L 04/02/20 13:10 Baso % (Auto) 0.7 % (0.2-1.0) 04/02/20 13:10 Neut # (Auto) 3.2 x10^3/uL (2.2-4.8) 04/02/20 13:10 Lymph # (Auto) 0.4 X10^3/uL (1.3-2.9) L 04/02/20 13:10 Buchanan # (Auto) 0.3 x10^3/uL (0.3-0.8) 04/02/20 13:10 Eos # (Auto) 0.0 x10^3/uL (0.0-0.2) 04/02/20 13:10 Baso # (Auto) 0.0 X10^3/uL (0.0-0.1) 04/02/20 13:10 Absolute Nucleated RBC 0.0 /100WBC 04/02/20 13:10 Sodium 134 mmol/L (136-145) L 04/02/20 13:10 Corrected Sodium TNP 04/02/20 13:10 Potassium 4.8 mmol/L (3.5-5.1) 04/02/20 13:10 Chloride 103 mmol/L (98-107) 04/02/20 13:10 Carbon Dioxide 19.7 mmol/L (21-32) L 04/02/20 13:10 BUN 17 mg/dL (7-18) 04/02/20 13:10 Creatinine 1.99 mg/dL (0.55-1.02) H 04/02/20 13:10 Est GFR (MDRD) Af Amer 31 (>60) L 04/02/20 13:10 Est GFR (MDRD) Non-Af 25 (>60) L 04/02/20 13:10 Glucose 100 mg/dL (65-99) H 04/02/20 13:10 Calcium 8.2 mg/dL (8.5-10.1) L 04/02/20 13:10 Corrected Calcium 9.0 mg/dL (8.5-10.1) 04/02/20 13:10 Total Bilirubin 0.40 mg/dL (0.2-1.0) 04/02/20 13:10 AST 22 Units/L (15-37) 04/02/20 13:10 ALT 10 Units/L (12-78) L 04/02/20 13:10 Alkaline Phosphatase 19 Units/L (46-116) L 04/02/20 13:10 Creatine Kinase 45 Units/L (26-192) 04/02/20 13:10 CK-MB (CK-2) 1.1 ng/mL (0-4.0) 04/02/20 13:10 CK/CKMB % Calc 2.4 % (<4) 04/02/20 13:10 Troponin I < 0.02 ng/mL (0-1.5) 04/02/20 13:10 B-Natriuretic Peptide 376 pg/mL (0-79) H 04/02/20 13:10 Total Protein 5.2 g/dL (6.4-8.2) L 04/02/20 13:10 Albumin 3.0 g/dL (3.4-5.0) L 04/02/20 13:10 Globulin 2.2 g/dL (2.5-4.5) L 04/02/20 13:10 Albumin/Globulin Ratio 1.4 Ratio (1.1-2.1) 04/02/20 13:10 Specimen Type Catherized urine 04/02/20 12:53 Urine Color Yellow (YELLOW) 04/02/20 12:53 Urine Appearance Clear (CLEAR) 04/02/20 12:53 Urine pH 5.0 (5.0 - 8.0) 04/02/20 12:53 Ur Specific Spencer 1.025 (1.000-1.030) 04/02/20 12:53 Urine Protein 1+ (NEGATIVE) 04/02/20 12:53 Urine Glucose (UA) Negative (NEGATIVE) 04/02/20 12:53 Urine Ketones 1+ (NEGATIVE) 04/02/20 12:53 Urine Occult Blood Negative (NEGATIVE) 04/02/20 12:53 Urine Nitrite Negative (NEGATIVE) 04/02/20 12:53 Urine Bilirubin Negative (NEGATIVE) 04/02/20 12:53 Urine Urobilinogen Normal (NORMAL) 04/02/20 12:53 Ur Leukocyte Esterase Negative (NEGATIVE) 04/02/20 12:53 Urine RBC None seen /HPF (0-3) 04/02/20 12:53 Urine WBC 0-2 /HPF (0-5) 04/02/20 12:53 Ur Squamous Epith Cells Rare /HPF (NEGATIVE) 04/02/20 12:53 Urine Bacteria Trace /HPF (NEGATIVE) 04/02/20 12:53 Ur Culture Indicated? No/not indicated 04/02/20 12:53 XRAY XRAY Interpreted by: Radiologist (REPORT NOTED AND DISCUSSED WITH PATIENT.) and Self EKG Rate: 60 Adams: Normal Rhythm: Paced Block: IVCD Hypertrophy: None ST: Ischemia, Infarct and Nonsp Opioid Opioid Risk Tool Age (Kulwinder box if 16-45): No History of Preadolescent Sexual Abuse: No Total: 0 Total Score Risk Category: Low Risk Copyright: [facility] predicting aberrant behaviors Diagnosis Discharge Problem: Weakness, SOB (shortness of breath) CHF (congestive heart failure) Qualifiers: Heart failure type: combined systolic and diastolic Heart failure chronicity: acute on chronic Qualified Code(s): I50.43 - Acute on chronic combined systolic (congestive) and diastolic (congestive) heart failure AMS (altered mental status) Qualifiers: Altered mental status type: transient alteration of awareness Qualified Code(s): R40.4 - Transient alteration of awareness Instructions Forms: Precautions for COVID19 Patient Portal Social Distancing
[2020-04-02] MEDS ORDERED: NS 1000 ML 1,000 ML IV ONE (12:11)
[2020-04-02] MEDS ORDERED: NS 1000 ML 1,000 ML ONE ×2 (13:02→20:24)
[2020-04-02] MEDS: NS 1000 ML 1,000 ML IV SCH ×2 (13:08→21:31)
[2020-04-02 13:11] LABS: BILIRUBIN,URINE NEGATIVE (NEGATIVE); BLOOD/HEMOGLOBIN,URINE NEGATIVE (NEGATIVE); GLUCOSE, URINE NEGATIVE (NEGATIVE); KETONES,URINE 1+ (NEGATIVE); LEUKOCYTE ESTERASE ,URINE NEGATIVE (NEGATIVE); NITRITES,URINE NEGATIVE (NEGATIVE); PROTEIN,URINE 1+ (NEGATIVE); UROBILINOGEN,URINE NORMAL (NORMAL)
--- NOTE | 2020-04-02 13:24 | RAD ---
HISTORYWEAKNESS AND LOW BLOOD PRESSURE. PT APPEARS TO BE WEAK,VOICE IS SHAKY AND A LITTLE CONFUSED.STUDYCHEST, 1 [id number]/02/2019TECHNIQUEAP view of the chestFINDINGSLeft chest wall pacemaker with leads in good position.The cardiac and mediastinal contours appear stable. Low lung volumes. Bilateral mid and lower lung hazy opacities. Cannot exclude small pleural effusions. No pneumothorax. Soft tissue attenuation limits evaluation.IMPRESSIONHazy bilateral lung opacities may represent pulmonary edema or pneumonia.Electronically signed by: Judah Chan (Apr 02, 2020 13:22:49)
[2020-04-02 13:26] LABS: BASOPHILS % (AUTO) 0.7 % (0.2-1.0); HEMATOCRIT 27.2 % (36.0-47.0); HEMOGLOBIN 9.3 g/dL (12.0-16.0); LYMPHOCYTES # (AUTO) 0.4 X10^3/uL (1.3-2.9); LYMPHOCYTES % (AUTO) 10.9 % (21.0-51.0); MEAN CORPUSCULAR HEMOGLOBIN 34.3 pg (27.0-34.0); MEAN CORPUSCULAR HGB CONC 34.2 g/dL (33.0-35.0); MEAN CORPUSCULAR VOLUME 100.3 fL (80.0-100.0); MEAN PLATELET VOLUME 7.7 fL (7.4-11.0); MONOCYTES # (AUTO) 0.3 x10^3/uL (0.3-0.8); MONOCYTES % (AUTO) 6.8 % (0.0-13.0); NEUTROPHILS # (AUTO) 3.2 x10^3/uL (2.2-4.8); NEUTROPHILS % (AUTO) 81.6 % (42.0-75.0); PLATELET COUNT 162 X10^3/uL (150.0-450.0); RED BLOOD COUNT 2.72 X10^6/uL (3.5-5.4); RED CELL DISTRIBUTION WIDTH 14.5 % (11.6-16.5); WHITE BLOOD COUNT 3.9 X10^3/uL (3.6-10.0)
[2020-04-02 13:33] LABS: APPEARANCE,URINE CLEAR (CLEAR); COLOR,URINE YELLOW (YELLOW)
[2020-04-02 13:34] LABS: BACTERIA,URINE TRACE /HPF (NEGATIVE); RBC,URINE NONE SEEN /HPF (0-3); SQUAMOUS EPITHELIAL CELL,UR RARE /HPF (NEGATIVE)
--- NOTE | 2020-04-02 13:35 | CT ---
[id number] female with altered mental statusSTUDYHead CT without contrastCOMPARISONPrevious head CT from 08/02/2017TECHNIQUEAxial imaging was performed from the vertex to the base of skull without intravenous contrast being administered. Sagittal and coronal reformations were generated. Automated exposure control techniques were used with this exam.FINDINGSGeneralized age related atrophic changes are present. However there is no evidence of intracranial hemorrhage or extracerebral fluid collections. Ventricles are symmetric in size and position with no mass effect seen. Patchy low density is present in a periventricular and subcortical white matter distribution, consistent with chronic small vessel ischemia. On the bone windows, no acute bony abnormality is seen. Visualized aspect of the paranasal sinuses and mastoid air cells are predominantly clear.IMPRESSION1. No acute intracranial abnormality is seen on this exam.2. Age related atrophic changes and patchy areas of chronic small vessel ischemia are an incidental findingElectronically signed by: LATONIA KWON (Apr 02, 2020 13:34:36)
[2020-04-02 13:45] LABS: BLOOD UREA NITROGEN 17 mg/dL (7-18); CALCIUM 8.2 mg/dL (8.5-10.1); CARBON DIOXIDE 19.7 mmol/L (21-32); CHLORIDE 103 mmol/L (98-107); CREATININE 1.99 mg/dL (0.55-1.02); SODIUM 134 mmol/L (136-145); TROPONIN I < 0.02 ng/mL (0-1.5); eGFR NON BLACK RACES 25 (>60)
[2020-04-02 13:49] LABS: ALANINE AMINOTRANSFERASE 10 Units/L (12-78); ALKALINE PHOSPHATASE 19 Units/L (46-116); ASPARTATE AMINO TRANSFERASE 22 Units/L (15-37); CKMB % 2.4 % (<4); CREATINE KINASE 45 Units/L (26-192); CREATINE KINASE MB 1.1 ng/mL (0-4.0); TOTAL PROTEIN 5.2 g/dL (6.4-8.2)
--- NOTE | 2020-04-02 13:59 | CT ---
HISTORYABDOMINAL PAINSTUDYCT abdomen and pelvis without IV contrastCOMPARISONX-ray dated 04/02/2020 and 02/11/2020TECHNIQUEMultiple axial images of the abdomen and pelvis were obtained from the mid-lungs to the pubic symphysis without the administration of IV contrast. Dose reduction techniques including Automated Exposure Control (AEC) and adjustment of mA and kV were utilized.FINDINGSMost of the lungs are included on the study and reveal moderate bilateral pleural effusions with associated atelectasis. Heart is normal in size. Thoracic and abdominal aorta are normal in size.The liver and spleen display no abnormalities.Prior cholecystectomy. No biliary ductal dilation.No pancreatic abnormality is seen.Probable bilateral adrenal nodules. Nodule on the right could possibly be adjacent to adrenal gland. Right adrenal nodule measures 2.3 x 2.3 cm. It is slightly heterogeneous and measures 32 Hounsfield units. Left adrenal nodule measures-2 Hounsfield units and is homogeneous. It measures 3.2 x 2.6 cm and is probable benign adenoma or cyst.Kidneys appear small with increased perinephric streaky densities. This could be due to poor renal function. 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 In the mid right kidney there is a low-density lesion that measures 1.4 cm. It is probably a cyst but cannot be confirmed on this study. In the right perinephric region there is another 1.4 cm low-density structure that could be exophytic cyst but could be separate from the kidney. It is uncertain if this is cyst or solid. Multiple phleboliths are seen in the pelvis. No ureteral stone is seen. Bladder is decompressed with a Wills catheter.There is wall thickening in the rectosigmoid colon but remainder of the colon has no wall thickening. Findings could be due to colitis. There is adjacent inflammation in the fat. Colon cancer is not excluded. Evidence of bowel obstruction. Stomach is not distended to evaluate wall thickness. Prior appendectomy.No adnexal masses are seen. Prior hysterectomy.Abdominal aorta is normal in size.No suspicious lymphadenopathy.Trace free pelvic fluid is seen. There is prominent diffuse anasarca.Hypertrophic arthritic facet changes are seen, greatest at L4-5. There is associated grade 1 anterolisthesis of L4 on L5 at this level with prominent spondylosis. Moderate arthritic changes are seen in the hips.IMPRESSIONModerate bilateral pleural effusions without evidence of CHF. Prominent diffuse anasarca.Wall thickening is suspected in the rectosigmoid colon which is concerning for possible colitis. Rectal malignancy is not excluded. Adjacent inflammation is suspected in the fat.Bilateral adrenal nodules are most likely benign. Probable benign right renal cyst and right para renal cyst. Confirmation with MRI may be useful if patient's cardiac device is MRI compatible. Otherwise, follow-up CT abdomen in 6 months time is recommended. Ultrasound may be useful in evaluation of the right renal and para renal lesions.Electronically signed by: Som Oconnor (Apr 02, 2020 13:57:53)
[2020-04-02] MEDS ORDERED: ROCEPHIN VIAL 1 GRAM 1 G in NS 100 ML IV + SPIKE MINIBAG* 100 ML IV ONE (14:38)
[2020-04-02] MEDS ORDERED: ROCEPHIN 1 GRAM IV PREMIX 1 G/50 ML IV.SOLN. IV ONE (14:42)
[2020-04-02] MEDS ORDERED: LEVAQUIN PREMIX IV 750 MG 750 MG/150 ML BAG IV ONE ×2 (20:00→20:25)
[2020-04-02] MEDS: SINEMET (PLAIN) 10/100 MG PO SCH (21:45)
[2020-04-03] MEDS: NS 1000 ML 1,000 ML IV SCH ×3 (05:26→21:29)
[2020-04-03 05:35] LABS: BILIRUBIN,URINE NEGATIVE (NEGATIVE); BLOOD/HEMOGLOBIN,URINE 2+ (NEGATIVE); GLUCOSE, URINE NEGATIVE (NEGATIVE); KETONES,URINE 1+ (NEGATIVE); LEUKOCYTE ESTERASE ,URINE NEGATIVE (NEGATIVE); NITRITES,URINE NEGATIVE (NEGATIVE); PROTEIN,URINE NEGATIVE (NEGATIVE); UROBILINOGEN,URINE NORMAL (NORMAL)
[2020-04-03 05:44] LABS: APPEARANCE,URINE CLEAR (CLEAR); BACTERIA,URINE TRACE /HPF (NEGATIVE); COLOR,URINE STRAW (YELLOW); RBC,URINE 0-2 /HPF (0-3); SQUAMOUS EPITHELIAL CELL,UR NEGATIVE /HPF (NEGATIVE); YEAST,URINE RARE /HPF (NEGATIVE)
[2020-04-03 07:46] LABS: BLOOD UREA NITROGEN 15 mg/dL (7-18); CALCIUM 7.5 mg/dL (8.5-10.1); CARBON DIOXIDE 17.2 mmol/L (21-32); CHLORIDE 105 mmol/L (98-107); CHOL/HDL RATIO 1.5 (0.0-5.0); CHOLESTEROL 82 mg/dL (0-200); CREATININE 1.78 mg/dL (0.55-1.02); HDL CHOLESTEROL 55 mg/dL (40-60); SODIUM 136 mmol/L (136-145); TRIGLYCERIDES 63 mg/dL (0-150); eGFR NON BLACK RACES 29 (>60)
[2020-04-03 08:06] LABS: BASOPHILS % (AUTO) 0.6 % (0.2-1.0); EOSINOPHILS % (AUTO) 0.1 % (0.9-2.9); LYMPHOCYTES # (AUTO) 0.4 X10^3/uL (1.3-2.9); LYMPHOCYTES % (AUTO) 14.2 % (21.0-51.0); MEAN CORPUSCULAR HEMOGLOBIN 33.7 pg (27.0-34.0); MEAN CORPUSCULAR HGB CONC 33.6 g/dL (33.0-35.0); MEAN CORPUSCULAR VOLUME 100.3 fL (80.0-100.0); MEAN PLATELET VOLUME 8.5 fL (7.4-11.0); MONOCYTES # (AUTO) 0.3 x10^3/uL (0.3-0.8); MONOCYTES % (AUTO) 9.5 % (0.0-13.0); NEUTROPHILS # (AUTO) 2.3 x10^3/uL (2.2-4.8); NEUTROPHILS % (AUTO) 75.6 % (42.0-75.0); PLATELET COUNT 124 X10^3/uL (150.0-450.0); RED BLOOD COUNT 2.39 X10^6/uL (3.5-5.4); RED CELL DISTRIBUTION WIDTH 14.4 % (11.6-16.5); WHITE BLOOD COUNT 3.1 X10^3/uL (3.6-10.0)
[2020-04-03 08:58] LABS: ALANINE AMINOTRANSFERASE 6 Units/L (12-78); ALBUMIN 2.6 g/dL (3.4-5.0); ALKALINE PHOSPHATASE 25 Units/L (46-116); ASPARTATE AMINO TRANSFERASE 20 Units/L (15-37); TOTAL PROTEIN 4.8 g/dL (6.4-8.2)
[2020-04-03 08:59] LABS: COR CA(FOR HYPOALB) 8.6 mg/dL (8.5-10.1); MAGNESIUM 1.4 mg/dL (1.7-2.9)
[2020-04-03] MEDS: SINEMET (PLAIN) 10/100 MG PO SCH ×2 (12:06→21:27)
--- NOTE | 2020-04-03 13:05 | DR.H&P ---
H&P - History & Physical for Day of: H&P Date: 04/02/20 - Chief Complaint Chief Complaint: WEAKNESS, CONFUSION - History of Present Illness History of Present Illness: PATIENT IS 84YR OLD FEMALE IN ER WITH LOW BLOOD PRESSURE, GENERALIZED WEAKNESS AND TREMORS.HISTORY TREMORS AND TAKE MEDICATION FOR SAME. PATIENT SYMPTOMS GOT WORSE TPDAY. NO FEVER. PATIENT HAVE EDEMA ANKLES AND FEET WITH INCREASING SOB. NO FEVER. HAVE NOT TAKEN HER MORNING MEDICATIONS TODAY. SHE IS DIZZY. - Past Medical History Past Medical History: Arthritis, Dyslipidemia, Hypertension Additional Medical History: S/P PACEMAKER. LEUKEMIA - Past Surgical History Surgical History: Bowel Resection, Hysterectomy, Other - Family History Family Medical History: Hypertension - Social History Does patient currently use any type of tobacco product: No Have you used tobacco products in the last 12 months: No Type of Tobacco Use: None Does any household member use tobacco: No Alcohol Use: None - Medications Home Medications: No Known Drug Allergies Allergy (Verified 02/11/20 10:48) CONTINUE taking the following medications carbidopa-levodopa 1 tab PO BID 04/02/20 [History] ondansetron HCl [Zofran] 8 mg PO TID PRN 04/02/20 [History] - Review of Systems Constitutional: Weakness, Malaise Eyes: No Symptoms Reported ENT: No Symptoms Reported Respiratory: SOB with Excertion Cardiovascular: Edema, Light Headedness Gastrointestinal: Nausea Genitourinary: No Symptoms Reported Musculoskeletal: Back Pain, Leg Pain Skin: Wound Neurological: Weakness, Confusion (MILD, TRANSIENT) - Physical Exam Vital Signs: Temperature 99.2 F Pulse Rate [Left] 59 Pulse Rate 58 Respiratory Rate 22 Blood Pressure [Left Calf] 86/40 Blood Pressure [Right Arm] 100/55 Blood Pressure [Left Arm] 161/71 Blood Pressure 110/53 O2 Sat by Pulse Oximetry 98 Oriented: Person Eyes: Normal Ear: Normal Nose: Normal Throat: Dry Respiratory: RLL Diminished, LLL Diminished Cardiovascular: Normal, Edema : Normal Auscultation: Bowel Sounds: Normal Palpation: Normal Tenderness: Mild Skin: Decreased Turgur, Wound (LABIAL) Musculoskeletal: Right, Left, Knee, Back:Lumbar Psychiatric: Anxiety Affect: Anxious Speech Pattern: Clear, Appropriate, Delayed - Assessment/Plan (1) AMS (altered mental status) Status: Acute Plan: ADMIT, IV HYDRATION, IV ATBX. CT ABD PELVIS IN ER, . COVID SWAB, CXR ON ADMISSION. VERIFY HOME MEDICATION, WOUND CULTURE (2) Pacemaker Status: Chronic (3) Leukemia Status: Chronic (4) Diabetes Status: Chronic (5) GERD (gastroesophageal reflux disease) Status: Chronic (6) CAD (coronary artery disease) Status: Chronic (7) Colitis Status: Acute - Allergies Allergies/Adverse Reactions: Allergies Allergy/AdvReac Type Severity Reaction Status Date / Time No Known Drug Allergies Allergy Verified 02/11/20 10:48
[2020-04-03] MEDS: DIFLUCAN PO SCH (17:23)
[2020-04-03] MEDS ORDERED: POTASSIUM CHL 40 MEQ/NS 0.45% 500 ML IV PRN (23:28)
[2020-04-03] MEDS ORDERED: K-DUR TAB 20 MEQ PO PRN (23:28)
[2020-04-03] MEDS ORDERED: MICRO K EXTEN CAP 10 MEQ PO PRN (23:28)
[2020-04-03] MEDS ORDERED: POTASSIUM CHLORIDE LIQ 20 MEQ UDC PO PRN (23:28)
[2020-04-03] MEDS ORDERED: KLOR-CON PO PRN (23:28)
[2020-04-03] MEDS ORDERED: POTASSIUM CHL 60 MEQ/NS 0.45% 500 ML IV PRN (23:28)
[2020-04-03] MEDS ORDERED: K-RIDER 10 MEQ/NS 100 ML 10 MEQ/100 ML BAG IV PRN (23:28)
[2020-04-04] MEDS: MAGNESIUM SULFATE 1 GRAM/100 mL PREMIX 1 GM/100 ML BAG IV PRN ×8 (02:06→17:18)
[2020-04-04] MEDS: NS 1000 ML 1,000 ML IV SCH ×3 (05:44→22:59)
--- NOTE | 2020-04-04 08:28 | DR.PROGNOT ---
Hospital Progress Notes - Progress Note for Day of: Progress Note Date: 04/04/20 - Chief Complaint Chief Complaint: genital infected cyst is healing slowly ,, no necrosis or cellulitis . - Past Medical Family Social History Past Med/Fam/Surg Hx: No changes since H&P Allergies: Allergies No Known Drug Allergies Allergy (Verified 02/11/20 10:48) - Review Of Systems ROS: No change since H&P - Vital Signs Vital Signs: Temperature 98.0 F Pulse Rate [Left] 71 Pulse Rate 58 Respiratory Rate 18 Blood Pressure [Left Calf] 86/40 Blood Pressure [Right Arm] 118/58 Blood Pressure [Left Arm] 161/71 Blood Pressure 110/53 O2 Sat by Pulse Oximetry 95 - Physical Exam Oriented: Normal, Person Eyes: Normal Ear: Normal Nose: Normal Throat: Dry Cardiovascular: Normal, Edema : Normal, Other (2x1cm open wound on the Rt labia with moderate edema . . has associated dermatitis ) GI:Auscultation: Normal GI:Palpation: Normal GI: Tenderness: Mild Skin: Decreased Turgur, Wound (LABIAL) Musculoskeletal: Right, Left, Knee, Back:Lumbar Psychiatric: Anxiety Affect: Anxious Speech Pattern: Clear, Appropriate - Laboratory and Diagnostics Result Diagrams: 04/03/20 06:45 04/03/20 06:45 Labs: 04/03/20 11:00 Labia - Right Gram Stain - Final 04/03/20 11:00 Labia - Right Wound Culture - Preliminary Laboratory WBC 3.1 X10^3/uL (3.6-10.0) L 04/03/20 06:45 RBC 2.39 X10^6/uL (3.5-5.4) L 04/03/20 06:45 Hgb 8.0 g/dL (12.0-16.0) L 04/03/20 06:45 Hct 24.0 % (36.0-47.0) L 04/03/20 06:45 MCV 100.3 fL (80.0-100.0) H 04/03/20 06:45 MCH 33.7 pg (27.0-34.0) 04/03/20 06:45 MCHC 33.6 g/dL (33.0-35.0) 04/03/20 06:45 RDW 14.4 % (11.6-16.5) 04/03/20 06:45 Plt Count 124 X10^3/uL (150.0-450.0) L 04/03/20 06:45 MPV 8.5 fL (7.4-11.0) 04/03/20 06:45 Neut % (Auto) 75.6 % (42.0-75.0) H 04/03/20 06:45 Lymph % (Auto) 14.2 % (21.0-51.0) L 04/03/20 06:45 [place] % (Auto) 9.5 % (0.0-13.0) 04/03/20 06:45 Eos % (Auto) 0.1 % (0.9-2.9) L 04/03/20 06:45 Baso % (Auto) 0.6 % (0.2-1.0) 04/03/20 06:45 Neut # (Auto) 2.3 x10^3/uL (2.2-4.8) 04/03/20 06:45 Lymph # (Auto) 0.4 X10^3/uL (1.3-2.9) L 04/03/20 06:45 [place] # (Auto) 0.3 x10^3/uL (0.3-0.8) 04/03/20 06:45 Eos # (Auto) 0.0 x10^3/uL (0.0-0.2) 04/03/20 06:45 Baso # (Auto) 0.0 X10^3/uL (0.0-0.1) 04/03/20 06:45 Absolute Nucleated RBC 0.2 /100WBC 04/03/20 06:45 PT 18.7 SECONDS (11.8-14.3) 04/03/20 06:45 INR Target Range - 04/03/20 06:45 INR 1.62 (0.8-1.3) H 04/03/20 06:45 APTT 29.8 SECONDS (22.9-36.5) 04/03/20 06:45 PTT Comment - 04/03/20 06:45 Sodium 136 mmol/L (136-145) 04/03/20 06:45 Corrected Sodium TNP 04/03/20 06:45 Potassium 4.5 mmol/L (3.5-5.1) 04/03/20 06:45 Chloride 105 mmol/L (98-107) 04/03/20 06:45 Carbon Dioxide 17.2 mmol/L (21-32) L 04/03/20 06:45 BUN 15 mg/dL (7-18) 04/03/20 06:45 Creatinine 1.78 mg/dL (0.55-1.02) H 04/03/20 06:45 Est GFR (MDRD) Af Amer 35 (>60) L 04/03/20 06:45 Est GFR (MDRD) Non-Af 29 (>60) L 04/03/20 06:45 Glucose 80 mg/dL (65-99) 04/03/20 06:45 Lactic Acid 0.6 mmol/L (0.4-2.0) 04/02/20 18:29 Calcium 7.5 mg/dL (8.5-10.1) L 04/03/20 06:45 Corrected Calcium 8.6 mg/dL (8.5-10.1) 04/03/20 06:45 Magnesium 1.3 mg/dL (1.7-2.9) L 04/04/20 00:28 Total Bilirubin 0.30 mg/dL (0.2-1.0) 04/03/20 06:45 AST 20 Units/L (15-37) 04/03/20 06:45 ALT 6 Units/L (12-78) L 04/03/20 06:45 Alkaline Phosphatase 25 Units/L (46-116) L 04/03/20 06:45 Creatine Kinase 45 Units/L (26-192) 04/02/20 13:10 CK-MB (CK-2) 1.1 ng/mL (0-4.0) 04/02/20 13:10 CK/CKMB % Calc 2.4 % (<4) 04/02/20 13:10 Troponin I < 0.02 ng/mL (0-1.5) 04/02/20 13:10 B-Natriuretic Peptide 376 pg/mL (0-79) H 04/02/20 13:10 Total Protein 4.8 g/dL (6.4-8.2) L 04/03/20 06:45 Albumin 2.6 g/dL (3.4-5.0) L 04/03/20 06:45 Globulin 2.2 g/dL (2.5-4.5) L 04/03/20 06:45 Albumin/Globulin Ratio 1.2 Ratio (1.1-2.1) 04/03/20 06:45 Triglycerides 63 mg/dL (0-150) 04/03/20 06:45 Cholesterol 82 mg/dL (0-200) 04/03/20 06:45 LDL Cholesterol, Calc 14 mg/dL (0-100) 04/03/20 06:45 HDL Cholesterol 55 mg/dL (40-60) 04/03/20 06:45 Cholesterol/HDL Ratio 1.5 (0.0-5.0) 04/03/20 06:45 Specimen Type Catherized urine 04/03/20 05:03 Urine Color Straw (YELLOW) 04/03/20 05:03 Urine Appearance Clear (CLEAR) 04/03/20 05:03 Urine pH 5.0 (5.0 - 8.0) 04/03/20 05:03 Ur Specific [place] 1.020 (1.000-1.030) 04/03/20 05:03 Urine Protein Negative (NEGATIVE) 04/03/20 05:03 Urine Glucose (UA) Negative (NEGATIVE) 04/03/20 05:03 Urine Ketones 1+ (NEGATIVE) 04/03/20 05:03 Urine Occult Blood 2+ (NEGATIVE) 04/03/20 05:03 Urine Nitrite Negative (NEGATIVE) 04/03/20 05:03 Urine Bilirubin Negative (NEGATIVE) 04/03/20 05:03 Urine Urobilinogen Normal (NORMAL) 04/03/20 05:03 Ur Leukocyte Esterase Negative (NEGATIVE) 04/03/20 05:03 Urine RBC 0-2 /HPF (0-3) 04/03/20 05:03 Urine WBC 0-2 /HPF (0-5) 04/03/20 05:03 Ur Squamous Epith Cells Negative /HPF (NEGATIVE) 04/03/20 05:03 Urine Bacteria Trace /HPF (NEGATIVE) 04/03/20 05:03 Urine Yeast Rare /HPF (NEGATIVE) 04/03/20 05:03 Ur Culture Indicated? No/not indicated 04/03/20 05:03 SARS CoV-2 RNA Rapid ELYSIA Negative (NEGATIVE) 04/02/20 16:00 - Assessment and Plan 1: infected genital cyst , s/p I&D . Candidiasis . DM . same local care ,ATB , oral Diflucan . - Problem Patient Problems: Patient Problems Pacemaker (Chronic) Z95.0 Leukemia (Chronic) C95.90 Diabetes (Chronic) E11.9 GERD (gastroesophageal reflux disease) (Chronic) K21.9 CAD (coronary artery disease) (Chronic) I25.10 CHF (congestive heart failure) (Acute) I50.9 Weakness (Acute) R53.1 SOB (shortness of breath) (Acute) R06.02 AMS (altered mental status) (Acute) R41.82 Colitis (Acute) K52.9 AMS (altered mental status) (Acute) R41.82
[2020-04-04] MEDS: DIFLUCAN PO SCH (09:46)
[2020-04-04] MEDS: SINEMET (PLAIN) 10/100 MG PO SCH ×2 (09:46→21:00)
[2020-04-04 10:28] LABS: BASOPHILS % (AUTO) 0.7 % (0.2-1.0); HEMATOCRIT 31.7 % (36.0-47.0); HEMOGLOBIN 10.7 g/dL (12.0-16.0); LYMPHOCYTES # (AUTO) 0.6 X10^3/uL (1.3-2.9); LYMPHOCYTES % (AUTO) 11.8 % (21.0-51.0); MEAN CORPUSCULAR HEMOGLOBIN 33.8 pg (27.0-34.0); MEAN CORPUSCULAR HGB CONC 33.7 g/dL (33.0-35.0); MEAN CORPUSCULAR VOLUME 100.3 fL (80.0-100.0); MEAN PLATELET VOLUME 7.9 fL (7.4-11.0); MONOCYTES # (AUTO) 0.4 x10^3/uL (0.3-0.8); NEUTROPHILS % (AUTO) 79.5 % (42.0-75.0); PLATELET COUNT 131 X10^3/uL (150.0-450.0); RED BLOOD COUNT 3.16 X10^6/uL (3.5-5.4); RED CELL DISTRIBUTION WIDTH 14.9 % (11.6-16.5)
[2020-04-04 10:41] LABS: ALBUMIN 2.8 g/dL (3.4-5.0); CALCIUM 8.3 mg/dL (8.5-10.1); CARBON DIOXIDE 21.9 mmol/L (21-32); COR CA(FOR HYPOALB) 9.3 mg/dL (8.5-10.1); CREATININE 1.49 mg/dL (0.55-1.02); TOTAL PROTEIN 5.3 g/dL (6.4-8.2)
--- NOTE | 2020-04-04 10:41 | RAD ---
HISTORYCHFSTUDYPortable AP chestCOMPARISONFebruary 2020FINDINGSThe heart is not significantly enlarged. There is persistent ill-defined infiltrate at the right base. There is a large area of airspace consolidation involving the left lower lobe, obscuring the retrocardiac structures and left diaphragm. Upper lobes remain clear. Stable position of pacemaker.IMPRESSIONPersistent bilateral airspace disease especially involving consolidation of the left lower lobe consistent with pneumonia/atelectasis.Electronically signed by: KAT MADRIGAL (Apr 04, 2020 10:39:36)
[2020-04-04] MEDS: ZOFRAN INJ 4 MG VIAL IVP PRN (11:00)
[2020-04-04] MEDS: NORCO 5/325 MG TAB PO PRN (11:00)
[2020-04-04] MEDS: NYSTATIN POWDER TOP SCH ×2 (12:12→21:00)
[2020-04-04] MEDS ORDERED: REGLAN INJ 10 MG VIAL IVP ONE (12:21)
[2020-04-04] MEDS ORDERED: REGLAN INJ 10 MG VIAL ONE (12:22)
[2020-04-04] MEDS: PROTONIX INJ 40 MG VIAL IVP SCH ×2 (16:00→21:00)
[2020-04-04] MEDS: COLACE CAP 100 MG PO SCH (16:00)
[2020-04-04] MEDS: LEVAQUIN PREMIX IV 500 MG 500 MG/100 ML BAG IV SCH (21:00)
[2020-04-05] MEDS: NS 1000 ML 1,000 ML IV SCH ×4 (03:30→23:00)
[2020-04-05 06:59] LABS: BASOPHILS % (AUTO) 0.5 % (0.2-1.0); EOSINOPHILS % (AUTO) 0.1 % (0.9-2.9); HEMATOCRIT 25.9 % (36.0-47.0); HEMOGLOBIN 8.9 g/dL (12.0-16.0); LYMPHOCYTES # (AUTO) 0.4 X10^3/uL (1.3-2.9); LYMPHOCYTES % (AUTO) 10.1 % (21.0-51.0); MEAN CORPUSCULAR HEMOGLOBIN 34.1 pg (27.0-34.0); MEAN CORPUSCULAR HGB CONC 34.2 g/dL (33.0-35.0); MEAN CORPUSCULAR VOLUME 99.7 fL (80.0-100.0); MEAN PLATELET VOLUME 8.3 fL (7.4-11.0); MONOCYTES # (AUTO) 0.3 x10^3/uL (0.3-0.8); MONOCYTES % (AUTO) 8.8 % (0.0-13.0); NEUTROPHILS # (AUTO) 2.8 x10^3/uL (2.2-4.8); NEUTROPHILS % (AUTO) 80.5 % (42.0-75.0); PLATELET COUNT 107 X10^3/uL (150.0-450.0); RED CELL DISTRIBUTION WIDTH 14.2 % (11.6-16.5); WHITE BLOOD COUNT 3.5 X10^3/uL (3.6-10.0)
[2020-04-05 07:17] LABS: ALBUMIN 2.4 g/dL (3.4-5.0); CALCIUM 7.6 mg/dL (8.5-10.1); CARBON DIOXIDE 21.4 mmol/L (21-32); COR CA(FOR HYPOALB) 8.9 mg/dL (8.5-10.1); CREATININE 1.23 mg/dL (0.55-1.02); MAGNESIUM 2.7 mg/dL (1.7-2.9); TOTAL PROTEIN 4.6 g/dL (6.4-8.2)
[2020-04-05] MEDS: ZOFRAN INJ 4 MG VIAL IVP PRN ×4 (08:00→21:30)
[2020-04-05] MEDS: NORCO 5/325 MG TAB PO PRN (08:04)
[2020-04-05] MEDS: PROTONIX INJ 40 MG VIAL IVP SCH ×2 (08:29→21:58)
[2020-04-05] MEDS ORDERED: REGLAN INJ 10 MG VIAL IVP ONE (10:03)
--- NOTE | 2020-04-05 11:54 | RAD ---
Abdomen supine single view 2 imagesIndication: Nausea and abdominal painFINDINGSThere are dilated loops of bowel, without gross free air or pneumatosis convincingly demonstrated. However, positioning limits sensitivity. Cholecystectomy clips noted. No abnormal calcific densities seen. Vascular calcification noted. Patient rotation limits sensitivity as well.IMPRESSIONBowel obstruction possible. CT follow-up recommended.Electronically signed by: JENNIFER MAURICIO (Apr 05, 2020 11:53:10)
[2020-04-05] MEDS: DIFLUCAN PO SCH ×2 (13:22→16:53)
[2020-04-05] MEDS: SINEMET (PLAIN) 10/100 MG PO SCH ×2 (13:22→21:58)
[2020-04-05] MEDS: COLACE CAP 100 MG PO SCH (13:22)
[2020-04-05] MEDS: NYSTATIN POWDER TOP SCH ×2 (13:22→21:57)
[2020-04-05] MEDS ORDERED: NS 100 ML IV 100 ML IV ONE (13:55)
--- NOTE | 2020-04-05 14:45 | CT ---
HISTORYpossible bowel obstructionSTUDYABDOMEN/PELVIS WITH CONCOMPARISONFebruary 2020TECHNIQUEMultiple axial images of the abdomen and pelvis were obtained from the lung bases to the pubic symphysis after the administration of IV contrast. Dose reduction techniques including Automated Exposure Control (AEC) and adjustment of mA and kV were utilized.FINDINGSThe visualized portions of the lung bases demonstrates stable effusions bilaterally. Bilateral adrenal nodules are again noted along with small renal cysts and a tiny fat containing inferior left renal pole angiomyolipoma.. The gallbladder is surgically absent. The solid organs otherwise.. No significant mesenteric lymphadenopathy or stranding can be observed. No free air seen. Diffuse findings of anasarca noted within the mesentery in the subcutaneous tissues similar to prior. No bowel wall thickening or bowel dilatation is present. The colon demonstrates some persistent wall thickening of the rectosigmoid region with some mild diverticulosis with no evidence for diverticulitis.. The urinary bladder is decompressed with a Wills catheter in place. The bony structures are stable..IMPRESSIONStable exam with no evidence to suggest small-bowel obstruction..Electronically signed by: MELL SEGAL (Apr 05, 2020 14:43:43)
[2020-04-06] MEDS: NS 1000 ML 1,000 ML IV SCH ×2 (06:01→13:03)
[2020-04-06] MEDS: SINEMET (PLAIN) 10/100 MG PO SCH ×2 (09:23→21:00)
[2020-04-06] MEDS: DIFLUCAN PO SCH (09:23)
[2020-04-06] MEDS: COLACE CAP 100 MG PO SCH (09:23)
[2020-04-06] MEDS: NYSTATIN POWDER TOP SCH ×2 (09:23→21:00)
[2020-04-06] MEDS: PROTONIX INJ 40 MG VIAL IVP SCH ×2 (09:23→21:00)
[2020-04-06] MEDS: ZOFRAN INJ 4 MG VIAL IVP PRN (09:24)
[2020-04-06] MEDS ORDERED: K-DUR TAB 20 MEQ PO SCH (12:00)
[2020-04-06] MEDS ORDERED: LASIX IVP ONE (12:58)
[2020-04-06] MEDS: LASIX IVP SCH ×2 (13:04→18:48)
--- NOTE | 2020-04-06 15:47 | RAD ---
HISTORYCongestive heart failureSTUDYChest AP portableCOMPARISON6 March 2020FINDINGSThere is a pacemaker present on the left obscuring a portion of the left lower lobe. The heart is within normal limits in size. The pat appear normal. The right lung and left upper lung dobbs are clear. Persistent increased density is present in the retrocardiac area of the left lower lobe obscuring the left hemidiaphragm and suspicious for left lower lobe pneumonia and/or some atelectasis. Small left pleural effusion is present. Bony thorax is unremarkable.IMPRESSIONNo change increased density retrocardiac area left lower lobe which could be on the basis of atelectasis, infiltrate, or bothNo change small left pleural effusionElectronically signed by: KATE ACOSTA (Apr 06, 2020 15:45:32)
[2020-04-06] MEDS: LEVAQUIN PREMIX IV 500 MG 500 MG/100 ML BAG IV SCH (21:00)
[2020-04-07] MEDS: NS 1000 ML 1,000 ML IV SCH ×4 (01:24→22:09)
[2020-04-07 08:48] LABS: BASOPHILS % (AUTO) 0.9 % (0.2-1.0); EOSINOPHILS % (AUTO) 0.2 % (0.9-2.9); HEMATOCRIT 27.8 % (36.0-47.0); HEMOGLOBIN 9.4 g/dL (12.0-16.0); LYMPHOCYTES # (AUTO) 0.4 X10^3/uL (1.3-2.9); LYMPHOCYTES % (AUTO) 12.1 % (21.0-51.0); MEAN CORPUSCULAR HEMOGLOBIN 33.7 pg (27.0-34.0); MEAN CORPUSCULAR HGB CONC 33.9 g/dL (33.0-35.0); MEAN CORPUSCULAR VOLUME 99.6 fL (80.0-100.0); MEAN PLATELET VOLUME 8.3 fL (7.4-11.0); MONOCYTES # (AUTO) 0.3 x10^3/uL (0.3-0.8); MONOCYTES % (AUTO) 10.7 % (0.0-13.0); NEUTROPHILS # (AUTO) 2.4 x10^3/uL (2.2-4.8); NEUTROPHILS % (AUTO) 76.1 % (42.0-75.0); PLATELET COUNT 85 X10^3/uL (150.0-450.0); RED BLOOD COUNT 2.79 X10^6/uL (3.5-5.4); RED CELL DISTRIBUTION WIDTH 14.5 % (11.6-16.5); WHITE BLOOD COUNT 3.1 X10^3/uL (3.6-10.0)
[2020-04-07 09:04] LABS: ALANINE AMINOTRANSFERASE < 6 Units/L (12-78); ALBUMIN 2.6 g/dL (3.4-5.0); ALKALINE PHOSPHATASE 22 Units/L (46-116); ASPARTATE AMINO TRANSFERASE 21 Units/L (15-37); BLOOD UREA NITROGEN 5 mg/dL (7-18); CALCIUM 8.1 mg/dL (8.5-10.1); CARBON DIOXIDE 26.9 mmol/L (21-32); CHLORIDE 102 mmol/L (98-107); COR CA(FOR HYPOALB) 9.2 mg/dL (8.5-10.1); CREATININE 0.93 mg/dL (0.55-1.02); SODIUM 136 mmol/L (136-145); eGFR NON BLACK RACES > 60 (>60)
[2020-04-07] MEDS: PROTONIX INJ 40 MG VIAL IVP SCH ×2 (09:53→22:10)
[2020-04-07] MEDS: COLACE CAP 100 MG PO SCH (09:53)
[2020-04-07] MEDS: SINEMET (PLAIN) 10/100 MG PO SCH ×2 (09:54→22:10)
[2020-04-07] MEDS: DIFLUCAN PO SCH (09:54)
[2020-04-07] MEDS: NYSTATIN POWDER TOP SCH ×2 (09:55→22:09)
[2020-04-07] MEDS: LASIX IVP SCH (09:55)
--- NOTE | 2020-04-08 05:05 | RAD ---
HISTORYCHFSTUDYCHEST, 1 [id number]/08/2021FINDINGSThe trachea is midline. Permanent pacing device. The cardiac silhouette is unremarkable . The lungs are clear without focal infiltrate or effusion. Pulmonary vasculature within normal limits. No pneumothorax. The bony thorax is unremarkable.IMPRESSIONNo acute cardiopulmonary disease.Electronically signed by: Miguel Patricia (Apr 08, 2020 05:04:03)
[2020-04-08] MEDS: NS 1000 ML 1,000 ML IV SCH (05:38)
[2020-04-08 06:17] LABS: BASOPHILS % (AUTO) 0.7 % (0.2-1.0); EOSINOPHILS % (AUTO) 0.1 % (0.9-2.9); HEMATOCRIT 25.4 % (36.0-47.0); HEMOGLOBIN 8.6 g/dL (12.0-16.0); LYMPHOCYTES # (AUTO) 0.5 X10^3/uL (1.3-2.9); LYMPHOCYTES % (AUTO) 22.1 % (21.0-51.0); MEAN CORPUSCULAR VOLUME 99.9 fL (80.0-100.0); MEAN PLATELET VOLUME 8.7 fL (7.4-11.0); MONOCYTES # (AUTO) 0.3 x10^3/uL (0.3-0.8); NEUTROPHILS # (AUTO) 1.6 x10^3/uL (2.2-4.8); NEUTROPHILS % (AUTO) 63.1 % (42.0-75.0); PLATELET COUNT 77 X10^3/uL (150.0-450.0); RED BLOOD COUNT 2.54 X10^6/uL (3.5-5.4); RED CELL DISTRIBUTION WIDTH 14.5 % (11.6-16.5); WHITE BLOOD COUNT 2.5 X10^3/uL (3.6-10.0)
[2020-04-08 06:36] LABS: ALANINE AMINOTRANSFERASE < 6 Units/L (12-78); ALBUMIN 2.5 g/dL (3.4-5.0); ALKALINE PHOSPHATASE 21 Units/L (46-116); ASPARTATE AMINO TRANSFERASE 15 Units/L (15-37); BLOOD UREA NITROGEN 5 mg/dL (7-18); CARBON DIOXIDE 30.4 mmol/L (21-32); CHLORIDE 100 mmol/L (98-107); COR CA(FOR HYPOALB) 9.2 mg/dL (8.5-10.1); COR NA(FOR HYPERGLY) 136 mmol/L (136-145); CREATININE 1.04 mg/dL (0.55-1.02); SODIUM 136 mmol/L (136-145); TOTAL PROTEIN 4.8 g/dL (6.4-8.2); eGFR NON BLACK RACES 54 (>60)
[2020-04-08] MEDS: PROTONIX INJ 40 MG VIAL IVP SCH (10:14)
[2020-04-08] MEDS: SINEMET (PLAIN) 10/100 MG PO SCH (10:15)
[2020-04-08] MEDS: NYSTATIN POWDER TOP SCH (10:15)
[2020-04-08] MEDS: DIFLUCAN PO SCH (10:19)
[2020-04-08] MEDS: COLACE CAP 100 MG PO SCH (10:19)
[2020-04-08] MEDS: MAGNESIUM SULFATE 1 GRAM/100 mL PREMIX 1 GM/100 ML BAG IV PRN ×2 (10:30→12:22)
[2020-04-08] MEDS: ZOFRAN INJ 4 MG VIAL IVP PRN (10:53)
[2020-04-08 12:42] VITALS: BP 112/53
== END 2020-04-08 15:55 | disposition home health service (06) | DRG 391 ==
LOC: ER 11:24 → MED/SURG 11:24 → OBS 04-03 08:27
PROVIDERS: ADMIT Internal Medicine; ATTEND Internal Medicine
DX: R06.02 Shortness of breath; R79.1 Abnormal coagulation profile; R94.31 Abnormal electrocardiogram [ECG] [EKG]; Z20.822 Contact with and (suspected) exposure to COVID-19; I50.43 Acute on chronic combined systolic (congestive) and diastolic (congestive) heart failure; I95.89 Other hypotension; N89.8 Other specified noninflammatory disorders of vagina; I25.10 Atherosclerotic heart disease of native coronary artery without angina pectoris; E86.0 Dehydration; E78.2 Mixed hyperlipidemia; K52.89 Other specified noninfective gastroenteritis and colitis; R40.4 Transient alteration of awareness; E11.65 Type 2 diabetes mellitus with hyperglycemia; I10 Essential (primary) hypertension; R26.89 Other abnormalities of gait and mobility; N17.8 Other acute kidney failure; R60.0 Localized edema; Z95.0 Presence of cardiac pacemaker; R53.1 Weakness; C95.10 Chronic leukemia of unspecified cell type not having achieved remission

== ENCOUNTER 2020-04-22 10:29 | Inpatient (IN) ==
[2020-04-22 11:19] VITALS: BMI 34.0
[2020-04-22] MEDS ORDERED: ZOFRAN INJ 4 MG VIAL IM ONE (11:20)
--- NOTE | 2020-04-22 11:25 | DR.GENAD ---
HPI Time Seen Time Seen by Provider: 04/22/20 11:13 HPI Comment HPI Comment: An 84 y/o female presenting with complain of not feeling good since awakening this morning. She denies abdominal pain but has nausea and is weak. Nurses notes reviewed Nurses Notes Review: Yes Source History Provided: Patient Timing Came on: On Awakening Modifying Factors Worsens:: nothing Improves:: nothing PMH PMH Past Medical History: Arthritis, Dyslipidemia and Hypertension Past Surgical History: Yes Surgical History: Bowel Resection, Hysterectomy and Other Family History Family Medical History: Hypertension Social History Do you use any recreational Drugs:: No ROS Review of Systems Constitutional: Fatigue Eyes: No Symptoms Reported ENTM: No Symptoms Reported Respiratoy: No Symptoms Reported Cardiovascular: No Symptoms Reported Gastrointestinal/Abdominal: Nausea Genitourinary: No Symptoms Reported Neurological: No Symptoms Reported Musculoskeletal: No Symptoms Reported Integumentary: No Symptoms Reported Hematologic/Lymphatic: No Symptoms Reported Endocrine: No Symptoms Reported Psychiatric: No Symptoms Reported PE Vital Signs Vitals: Temperature 97.7 F Pulse Rate [Left Radial] 60 Pulse Rate 60 Respiratory Rate 20 Blood Pressure [Left Calf] 86/40 Blood Pressure [Right Arm] 98/47 Blood Pressure 100/55 O2 Sat by Pulse Oximetry 98 General Limitations: No Limitations General Appearance: Alert and In No Apparent Distress Head Head Exam: Normal Inspection, Atraumatic and Normocephalic Eyes Eye exam: Normal Appearance and EOMI ENT ENT Exam: Normal Exam, Normal Oropharynx, Normal External Ear Exam and Mucous Membranes Moist Neck Neck Exam: Normal Inspection, Full ROM and Trachea Midline Chest Chest Inspection: Normal Inspection and Symmetric Chest Wall Rise Respiratory Respiratory Exam: Normal Lung Sounds Bilat Cardiovascular Cardiovascular Exam: Regular Rate, Normal Rhythm, Normal Heart Sounds, +S1 and +S2 Abdominal Exam Abdominal Exam: Normal Inspection, Normal Bowel Sounds and Soft Extremities Extremities Exam: Normal Inspection, Full ROM and Normal Capillary Refill Back Back Exam: Normal Inspection and Full ROM Neurologic Neurological Exam: Alert, Oriented X3 and Normal Gait Psychiatric Psychiatric Exam: Normal Affect and Normal Mood Skin Skin Exam: Dry and Normal Color MDM Differential Diagnosis Differential Diagnosis: Nausea, Anemia COURSE Reevaluation 1st: Improved Education/Counseling Education/Counseling: Patient, Education and Counseling Educated On: Treatment, Diagnosis, Prognosis and Needs for Follow Up ROR Labs Reviewed Laboratory Results Reviewed?: Yes Result Diagrams: 04/22/20 11:35 04/22/20 11:35 Laboratory: WBC 3.2 X10^3/uL (3.6-10.0) L 04/22/20 11:35 RBC 2.71 X10^6/uL (3.5-5.4) L 04/22/20 11:35 Hgb 9.1 g/dL (12.0-16.0) L 04/22/20 11:35 Hct 26.7 % (36.0-47.0) L 04/22/20 11:35 MCV 98.2 fL (80.0-100.0) 04/22/20 11:35 MCH 33.4 pg (27.0-34.0) 04/22/20 11:35 MCHC 34.0 g/dL (33.0-35.0) 04/22/20 11:35 RDW 14.0 % (11.6-16.5) 04/22/20 11:35 Plt Count 139 X10^3/uL (150.0-450.0) L 04/22/20 11:35 MPV 8.3 fL (7.4-11.0) 04/22/20 11:35 Neut % (Auto) 72.3 % (42.0-75.0) 04/22/20 11:35 Lymph % (Auto) 16.7 % (21.0-51.0) L 04/22/20 11:35 [place] % (Auto) 9.8 % (0.0-13.0) 04/22/20 11:35 Eos % (Auto) 0.1 % (0.9-2.9) L 04/22/20 11:35 Baso % (Auto) 1.1 % (0.2-1.0) H 04/22/20 11:35 Neut # (Auto) 2.3 x10^3/uL (2.2-4.8) 04/22/20 11:35 Lymph # (Auto) 0.5 X10^3/uL (1.3-2.9) L 04/22/20 11:35 [place] # (Auto) 0.3 x10^3/uL (0.3-0.8) 04/22/20 11:35 Eos # (Auto) 0.0 x10^3/uL (0.0-0.2) 04/22/20 11:35 Baso # (Auto) 0.0 X10^3/uL (0.0-0.1) 04/22/20 11:35 Absolute Nucleated RBC 0.0 /100WBC 04/22/20 11:35 Sodium 127 mmol/L (136-145) L 04/22/20 11:35 Corrected Sodium TNP 04/22/20 11:35 Potassium 5.3 mmol/L (3.5-5.1) H 04/22/20 11:35 Chloride 96 mmol/L (98-107) L 04/22/20 11:35 Carbon Dioxide 22.1 mmol/L (21-32) 04/22/20 11:35 BUN 20 mg/dL (7-18) H 04/22/20 11:35 Creatinine 2.59 mg/dL (0.55-1.02) H 04/22/20 11:35 Est GFR (MDRD) Af Amer 23 (>60) L 04/22/20 11:35 Est GFR (MDRD) Non-Af 19 (>60) L 04/22/20 11:35 Glucose 102 mg/dL (65-99) H 04/22/20 11:35 Calcium 8.2 mg/dL (8.5-10.1) L 04/22/20 11:35 Corrected Calcium 8.9 mg/dL (8.5-10.1) 04/22/20 11:35 Total Bilirubin 0.60 mg/dL (0.2-1.0) 04/22/20 11:35 AST 21 Units/L (15-37) 04/22/20 11:35 ALT 14 Units/L (12-78) 04/22/20 11:35 Alkaline Phosphatase 29 Units/L (46-116) L 04/22/20 11:35 Total Protein 5.3 g/dL (6.4-8.2) L 04/22/20 11:35 Albumin 3.1 g/dL (3.4-5.0) L 04/22/20 11:35 Globulin 2.2 g/dL (2.5-4.5) L 04/22/20 11:35 Albumin/Globulin Ratio 1.4 Ratio (1.1-2.1) 04/22/20 11:35 XRAY XRAY Interpreted by: Self X-ray Results: AAS: on the chest, there is noted a subcutaneous pacemaker in upper Lt. chest with leads in the LV. The Rt. hemidiaphragm is elevated. The abdomen shows no free air or air fluid levels. Opioid Opioid Risk Tool Age (Kulwinder box if 16-45): No History of Preadolescent Sexual Abuse: No Total: 0 Total Score Risk Category: Low Risk Copyright: [facility] predicting aberrant behaviors Diagnosis Discharge Problem: Acute hyponatremia, Pancytopenia, Hyperkalemia Acute renal failure superimposed on stage 4 chronic kidney disease Qualifiers: Acute renal failure type: unspecified Qualified Code(s): N17.9 - Acute kidney failure, unspecified ADDITIONAL NOTES Additional Notes Additional Notes: HISTORY Pt c/o generalized edema. Home health nurse called primary provider who advised pt to come to ER. Pt states she takes "fluid medicine" some days but does not know when she last took it. STUDY ACUTE ABDOMEN SERIES COMPARISON CT abdomen pelvis from 04/05/2020. TECHNIQUE Three view acute abdomen series. FINDINGS Left chest wall pacemaker with leads in the right atrium and right ventricle. Cardiac and mediastinal contours are within normal limits. The lungs appear clear. No definite pleural effusion or pneumothorax. Soft tissue attenuation limits evaluation. Air under the right hemidiaphragm appears to be bowel. The right hemidiaphragm is elevated. Status post cholecystectomy.Nonobstructive bowel gas pattern. No definite pneumatosis, free air or portal venous gas. No suspicious calcifications. Surgical clips in the pelvis. Calcifications in the pelvis are likely phleboliths. IMPRESSION Nonobstructive bowel gas pattern. No acute pulmonary process. Elevated right hemidiaphragm. Electronically signed by: Judah Chan (Apr 22, 2020 12:45:14)
[2020-04-22] MEDS ORDERED: ZOFRAN INJ 4 MG VIAL ONE (11:35)
[2020-04-22 11:50] LABS: BASOPHILS % (AUTO) 1.1 % (0.2-1.0); EOSINOPHILS % (AUTO) 0.1 % (0.9-2.9); HEMATOCRIT 26.7 % (36.0-47.0); HEMOGLOBIN 9.1 g/dL (12.0-16.0); LYMPHOCYTES # (AUTO) 0.5 X10^3/uL (1.3-2.9); LYMPHOCYTES % (AUTO) 16.7 % (21.0-51.0); MEAN CORPUSCULAR HEMOGLOBIN 33.4 pg (27.0-34.0); MEAN CORPUSCULAR VOLUME 98.2 fL (80.0-100.0); MEAN PLATELET VOLUME 8.3 fL (7.4-11.0); MONOCYTES # (AUTO) 0.3 x10^3/uL (0.3-0.8); MONOCYTES % (AUTO) 9.8 % (0.0-13.0); NEUTROPHILS # (AUTO) 2.3 x10^3/uL (2.2-4.8); NEUTROPHILS % (AUTO) 72.3 % (42.0-75.0); PLATELET COUNT 139 X10^3/uL (150.0-450.0); RED BLOOD COUNT 2.71 X10^6/uL (3.5-5.4); WHITE BLOOD COUNT 3.2 X10^3/uL (3.6-10.0)
[2020-04-22 12:00] LABS: ALANINE AMINOTRANSFERASE 14 Units/L (12-78); ALBUMIN 3.1 g/dL (3.4-5.0); ALKALINE PHOSPHATASE 29 Units/L (46-116); ASPARTATE AMINO TRANSFERASE 21 Units/L (15-37); BLOOD UREA NITROGEN 20 mg/dL (7-18); CALCIUM 8.2 mg/dL (8.5-10.1); CARBON DIOXIDE 22.1 mmol/L (21-32); CHLORIDE 96 mmol/L (98-107); COR CA(FOR HYPOALB) 8.9 mg/dL (8.5-10.1); CREATININE 2.59 mg/dL (0.55-1.02); SODIUM 127 mmol/L (136-145); TOTAL PROTEIN 5.3 g/dL (6.4-8.2); eGFR NON BLACK RACES 19 (>60)
[2020-04-22] MEDS ORDERED: NS 1000 ML 1,000 ML ONE ×2 (12:40→21:52)
--- NOTE | 2020-04-22 12:46 | RAD ---
HISTORYPt c/o generalized edema. Home health nurse called primary provider who advised pt to come to ER. Pt states she takes "fluid medicine" some days but does not know when she last took it.STUDYACUTE ABDOMEN SERIESCOMPARISONCT abdomen pelvis from 04/05/2020.TECHNIQUEThree view acute abdomen series.FINDINGSLeft chest wall pacemaker with leads in the right atrium and right ventricle. Cardiac and mediastinal contours are within normal limits. The lungs appear clear. No definite pleural effusion or pneumothorax. Soft tissue attenuation limits evaluation. Air under the right hemidiaphragm appears to be bowel. The right hemidiaphragm is elevated.Status post cholecystectomy.Nonobstructive bowel gas pattern. No definite pneumatosis, free air or portal venous gas. No suspicious calcifications. Surgical clips in the pelvis. Calcifications in the pelvis are likely phleboliths.IMPRESSIONNonobstructive bowel gas pattern. No acute pulmonary process. Elevated right hemidiaphragm.Electronically signed by: Judah Chan (Apr 22, 2020 12:45:14)
[2020-04-22] MEDS ORDERED: NS 1000 ML 1,000 ML IV SCH (13:00)
[2020-04-22] MEDS ORDERED: KAYEXALATE SUSP PO NR (14:00)
[2020-04-22] MEDS ORDERED: ZOFRAN TAB 4 MG PO PRN (16:57)
[2020-04-22] MEDS: NS 1000 ML 1,000 ML IV SCH ×2 (19:00→22:10)
[2020-04-22] MEDS: SINEMET (PLAIN) 10/100 MG PO SCH (21:00)
[2020-04-23 06:06] LABS: BASOPHILS % (AUTO) 1.3 % (0.2-1.0); HEMATOCRIT 26.5 % (36.0-47.0); HEMOGLOBIN 9.1 g/dL (12.0-16.0); LYMPHOCYTES # (AUTO) 0.6 X10^3/uL (1.3-2.9); LYMPHOCYTES % (AUTO) 22.1 % (21.0-51.0); MEAN CORPUSCULAR HEMOGLOBIN 33.5 pg (27.0-34.0); MEAN CORPUSCULAR HGB CONC 34.3 g/dL (33.0-35.0); MEAN CORPUSCULAR VOLUME 97.8 fL (80.0-100.0); MEAN PLATELET VOLUME 8.9 fL (7.4-11.0); MONOCYTES # (AUTO) 0.3 x10^3/uL (0.3-0.8); MONOCYTES % (AUTO) 10.8 % (0.0-13.0); NEUTROPHILS # (AUTO) 1.6 x10^3/uL (2.2-4.8); NEUTROPHILS % (AUTO) 65.8 % (42.0-75.0); PLATELET COUNT 115 X10^3/uL (150.0-450.0); RED BLOOD COUNT 2.71 X10^6/uL (3.5-5.4); RED CELL DISTRIBUTION WIDTH 13.8 % (11.6-16.5); WHITE BLOOD COUNT 2.5 X10^3/uL (3.6-10.0)
[2020-04-23] MEDS: NS 1000 ML 1,000 ML IV SCH (06:08)
[2020-04-23 06:29] LABS: ALANINE AMINOTRANSFERASE 8 Units/L (12-78); ALBUMIN 2.7 g/dL (3.4-5.0); ALKALINE PHOSPHATASE 26 Units/L (46-116); ASPARTATE AMINO TRANSFERASE 22 Units/L (15-37); BLOOD UREA NITROGEN 20 mg/dL (7-18); CALCIUM 7.9 mg/dL (8.5-10.1); CARBON DIOXIDE 22.3 mmol/L (21-32); CHLORIDE 100 mmol/L (98-107); COR CA(FOR HYPOALB) 8.9 mg/dL (8.5-10.1); CREATININE 2.13 mg/dL (0.55-1.02); SODIUM 131 mmol/L (136-145); TOTAL PROTEIN 4.7 g/dL (6.4-8.2); eGFR NON BLACK RACES 24 (>60)
[2020-04-23] MEDS ORDERED: PROTONIX TAB 40 MG PO SCH (09:00)
[2020-04-23] MEDS ORDERED: PROTONIX TAB 40 MG PO ONE (09:31)
[2020-04-23] MEDS: SINEMET (PLAIN) 10/100 MG PO SCH ×2 (09:36→20:46)
[2020-04-23] MEDS ORDERED: NS 1000 ML 1,000 ML ONE (11:00)
--- NOTE | 2020-04-23 14:35 | RAD ---
HISTORYCHFSTUDYCHEST, 1 [id number]/10/2021FINDINGSThe lungs are clear. No pneumothorax or significant effusion. Elevation of the right hemidiaphragm is unchanged.Heart size is normal. 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 There are degenerative changes in the left shoulder.Left subclavian ICD is present with leads in expected location.IMPRESSION1. No significant abnormalityElectronically signed by: Baltazar White (Apr 23, 2020 14:33:53)
[2020-04-23] MEDS: PROTONIX INJ 40 MG VIAL IVP SCH ×2 (16:12→20:46)
[2020-04-24 06:45] LABS: EOSINOPHILS % (AUTO) 0.1 % (0.9-2.9); HEMATOCRIT 24.9 % (36.0-47.0); HEMOGLOBIN 8.3 g/dL (12.0-16.0); LYMPHOCYTES # (AUTO) 0.4 X10^3/uL (1.3-2.9); LYMPHOCYTES % (AUTO) 17.4 % (21.0-51.0); MEAN CORPUSCULAR HGB CONC 33.3 g/dL (33.0-35.0); MEAN CORPUSCULAR VOLUME 98.9 fL (80.0-100.0); MEAN PLATELET VOLUME 8.6 fL (7.4-11.0); MONOCYTES # (AUTO) 0.3 x10^3/uL (0.3-0.8); MONOCYTES % (AUTO) 11.4 % (0.0-13.0); NEUTROPHILS # (AUTO) 1.7 x10^3/uL (2.2-4.8); NEUTROPHILS % (AUTO) 70.1 % (42.0-75.0); PLATELET COUNT 110 X10^3/uL (150.0-450.0); RED BLOOD COUNT 2.52 X10^6/uL (3.5-5.4); RED CELL DISTRIBUTION WIDTH 13.8 % (11.6-16.5); WHITE BLOOD COUNT 2.4 X10^3/uL (3.6-10.0)
[2020-04-24 06:51] LABS: ALBUMIN 2.5 g/dL (3.4-5.0); BLOOD UREA NITROGEN 16 mg/dL (7-18); CALCIUM 7.6 mg/dL (8.5-10.1); CARBON DIOXIDE 19.5 mmol/L (21-32); CHLORIDE 102 mmol/L (98-107); COR CA(FOR HYPOALB) 8.8 mg/dL (8.5-10.1); CREATININE 1.78 mg/dL (0.55-1.02); SODIUM 133 mmol/L (136-145); eGFR NON BLACK RACES 29 (>60)
[2020-04-24 07:09] LABS: BAND NEUTROPHILS % 2 % (0-10); PLATELET MORPHOLOGY COMMENT NORMAL (NORMAL)
[2020-04-24 07:16] LABS: ALANINE AMINOTRANSFERASE 10 Units/L (12-78); ALKALINE PHOSPHATASE 25 Units/L (46-116); ASPARTATE AMINO TRANSFERASE 24 Units/L (15-37); TOTAL PROTEIN 4.6 g/dL (6.4-8.2)
[2020-04-24 09:34] LABS: IRON 50 ug/dL (50-175)
[2020-04-24] MEDS: PROTONIX INJ 40 MG VIAL IVP SCH ×2 (10:23→21:02)
[2020-04-24] MEDS: SINEMET (PLAIN) 10/100 MG PO SCH ×2 (10:24→21:02)
[2020-04-24] MEDS: NS 1000 ML 1,000 ML IV SCH ×3 (14:41→21:20)
[2020-04-24] MEDS: TYLENOL 500 MG TAB EXTRA STRENGTH PO PRN (16:51)
[2020-04-25] MEDS: TYLENOL 500 MG TAB EXTRA STRENGTH PO PRN (00:15)
[2020-04-25] MEDS: NS 1000 ML 1,000 ML IV SCH ×3 (05:19→23:03)
[2020-04-25 06:46] LABS: BASOPHILS % (AUTO) 1.5 % (0.2-1.0); EOSINOPHILS % (AUTO) 0.1 % (0.9-2.9); HEMATOCRIT 23.9 % (36.0-47.0); HEMOGLOBIN 8.1 g/dL (12.0-16.0); LYMPHOCYTES # (AUTO) 0.5 X10^3/uL (1.3-2.9); LYMPHOCYTES % (AUTO) 24.2 % (21.0-51.0); MEAN CORPUSCULAR HEMOGLOBIN 33.4 pg (27.0-34.0); MEAN CORPUSCULAR HGB CONC 33.9 g/dL (33.0-35.0); MEAN CORPUSCULAR VOLUME 98.3 fL (80.0-100.0); MEAN PLATELET VOLUME 8.9 fL (7.4-11.0); MONOCYTES # (AUTO) 0.3 x10^3/uL (0.3-0.8); MONOCYTES % (AUTO) 13.9 % (0.0-13.0); NEUTROPHILS # (AUTO) 1.1 x10^3/uL (2.2-4.8); NEUTROPHILS % (AUTO) 60.3 % (42.0-75.0); PLATELET COUNT 95 X10^3/uL (150.0-450.0); RED BLOOD COUNT 2.43 X10^6/uL (3.5-5.4); RED CELL DISTRIBUTION WIDTH 13.7 % (11.6-16.5)
[2020-04-25 07:04] LABS: ALANINE AMINOTRANSFERASE 14 Units/L (12-78); ALBUMIN 2.5 g/dL (3.4-5.0); ALKALINE PHOSPHATASE 24 Units/L (46-116); ASPARTATE AMINO TRANSFERASE 23 Units/L (15-37); BLOOD UREA NITROGEN 13 mg/dL (7-18); CALCIUM 7.9 mg/dL (8.5-10.1); CARBON DIOXIDE 22.4 mmol/L (21-32); CHLORIDE 105 mmol/L (98-107); COR CA(FOR HYPOALB) 9.1 mg/dL (8.5-10.1); CREATININE 1.52 mg/dL (0.55-1.02); SODIUM 135 mmol/L (136-145); TOTAL PROTEIN 4.5 g/dL (6.4-8.2); eGFR NON BLACK RACES 35 (>60)
[2020-04-25 07:47] LABS: WHITE BLOOD COUNT 1.9 X10^3/uL (3.6-10.0)
[2020-04-25 08:38] LABS: BAND NEUTROPHILS % 2 % (0-10); PLATELET MORPHOLOGY COMMENT NORMAL (NORMAL)
[2020-04-25] MEDS: SINEMET (PLAIN) 10/100 MG PO SCH ×2 (11:17→20:53)
[2020-04-25] MEDS: PROTONIX INJ 40 MG VIAL IVP SCH ×2 (11:17→22:06)
--- NOTE | 2020-04-25 12:04 | PCM.PROG ---
Progress Note - Progress Note for Day of Date of Exam: 04/25/20 - Subjective Subjective: The patient is a pleasant 84-year-old white female who is a patient of who was admitted on 04/22/20. She is suffering from generalized weakness due to acute dehydration and acute renal failure as well as hyponatremia. The patient has been on gentle IV hydration with strict Is and Os. She has a history of congestive heart failure and has a Pacemaker as well as a history of Leukemia. On exam, the patient is awake, alert, and oriented. She is oriented to self and situation. She has diffuse diminished lung bases. No rales, wheezing, or rhonchi. She has a Pacemaker present. Heart rate is a controlled rate and rhythm. Abdomen is obese but nontender. Bowel sounds are present times all four quadrants. She does have bilateral lower extremity 1+ edema noted. Bilateral pedal pulses are positive. The patients sodium was up to 135 today. Her BUN was 13 and creatinine was down to 1.52. Her white blood cell count was 1.9 and hemoglobin was 8.1. Platelets were at 95 today. She does have a history of pancytopenia. An anemia panel was ordered yesterday and revealed a transferrin of 136 and vitamin b12 1694. The patient denies any shortness of breath at this time. She had an abdomen series on the which was normal. She received an iron infusion yesterday. The patient has been experiencing GI issues of colitis as well as gastroesophageal reflux disease, some dysphagia, and possible gastroparesis. She is periodically vomiting. We cannot relate it to any medication or change in eating habits. She has been under the care of Dr. Alexander. We are going to continue with anti-emetics and home medications of Sinemet along with gentle hydration and strict Is and Os. There is an order in for a urinalysis due to patient having complaining of having decreased urine output. Otherwise, we will follow up with am labs and continue to monitor. TIME SPENT ON CLINICAL ASSESSMENT, REVIEWING LABS AND IMAGING, DECISION MAKING, AND DOCUMENTATION GREATER THAN 75 MINUTES. - Past Medical Family Social History Past Med/Fam/Surg Hx: No changes since H&P Allergies: Allergies No Known Drug Allergies Allergy (Verified 02/11/20 10:48) - Review of Systems ROS: No change since H&P - Vital Signs and I&O's Vital Signs: Temperature 98.2 F Pulse Rate [Left Radial] 65 Pulse Rate 60 Respiratory Rate 18 Blood Pressure [Left Calf] 86/40 Blood Pressure [Right Arm] 120/54 Blood Pressure 100/55 O2 Sat by Pulse Oximetry 96 Intake and Output: Intake & Output 04/23/20 04/24/20 04/25/20 04/26/20 11:59 11:59 11:59 11:59 Intake Total 1102 / 1102 1180 / 1180 2963 / 2963 Balance 1102 / 1102 1180 / 1180 2963 / 2963 - Physical Exam Oriented: Normal Eyes: Normal Ear: Normal Nose: Normal Throat: Normal Respiratory: Generalized, Diminished Cardiovascular: Edema (upper and lower extremity edema ) : Normal Auscultation: Bowel Sounds: Normal Palpation: Normal Tenderness: Normal Skin: Decreased Turgur Musculoskeletal: Normal Psychiatric: Normal Mood Description: Calm Affect: Normal Speech Pattern: Clear, Appropriate - Laboratory and Diagnostics Result Diagrams: 04/25/20 05:49 04/25/20 05:49 Labs: Laboratory WBC 1.9 X10^3/uL (3.6-10.0) L* 04/25/20 05:49 RBC 2.43 X10^6/uL (3.5-5.4) L 04/25/20 05:49 Hgb 8.1 g/dL (12.0-16.0) L 04/25/20 05:49 Hct 23.9 % (36.0-47.0) L 04/25/20 05:49 MCV 98.3 fL (80.0-100.0) 04/25/20 05:49 MCH 33.4 pg (27.0-34.0) 04/25/20 05:49 MCHC 33.9 g/dL (33.0-35.0) 04/25/20 05:49 RDW 13.7 % (11.6-16.5) 04/25/20 05:49 Plt Count 95 X10^3/uL (150.0-450.0) L 04/25/20 05:49 Plt Count Comment Decreased (ADEQUATE) A 04/25/20 05:49 MPV 8.9 fL (7.4-11.0) 04/25/20 05:49 Neut % (Auto) 60.3 % (42.0-75.0) 04/25/20 05:49 Lymph % (Auto) 24.2 % (21.0-51.0) 04/25/20 05:49 [place] % (Auto) 13.9 % (0.0-13.0) H 04/25/20 05:49 Eos % (Auto) 0.1 % (0.9-2.9) L 04/25/20 05:49 Baso % (Auto) 1.5 % (0.2-1.0) H 04/25/20 05:49 Neut # (Auto) 1.1 x10^3/uL (2.2-4.8) L 04/25/20 05:49 Lymph # (Auto) 0.5 X10^3/uL (1.3-2.9) L 04/25/20 05:49 [place] # (Auto) 0.3 x10^3/uL (0.3-0.8) 04/25/20 05:49 Eos # (Auto) 0.0 x10^3/uL (0.0-0.2) 04/25/20 05:49 Baso # (Auto) 0.0 X10^3/uL (0.0-0.1) 04/25/20 05:49 Absolute Nucleated RBC 0.2 /100WBC 04/25/20 05:49 Total Counted 50 04/25/20 05:49 Neutrophils % (Manual) 60 % (39-76) 04/25/20 05:49 Band Neutrophils % 2 % (0-10) 04/25/20 05:49 Lymphocytes % (Manual) 30 % (13-43) 04/25/20 05:49 Monocytes % (Manual) 8 % (4-9) 04/25/20 05:49 Plt Morphology Comment Normal (NORMAL) 04/25/20 05:49 RBC Morphology Normal (NORMAL) 04/25/20 05:49 Sodium 135 mmol/L (136-145) L 04/25/20 05:49 Corrected Sodium TNP 04/25/20 05:49 Potassium 3.7 mmol/L (3.5-5.1) 04/25/20 05:49 Chloride 105 mmol/L (98-107) 04/25/20 05:49 Carbon Dioxide 22.4 mmol/L (21-32) 04/25/20 05:49 BUN 13 mg/dL (7-18) 04/25/20 05:49 Creatinine 1.52 mg/dL (0.55-1.02) H 04/25/20 05:49 Est GFR (MDRD) Af Amer 42 (>60) L 04/25/20 05:49 Est GFR (MDRD) Non-Af 35 (>60) L 04/25/20 05:49 Glucose 75 mg/dL (65-99) 04/25/20 05:49 Calcium 7.9 mg/dL (8.5-10.1) L 04/25/20 05:49 Corrected Calcium 9.1 mg/dL (8.5-10.1) 04/25/20 05:49 Iron 50 ug/dL (50-175) 04/24/20 06:00 Transferrin 136 mg/dL (202-364) L 04/24/20 06:00 Ferritin 120 ng/mL (8-252) 04/24/20 06:00 Total Bilirubin 0.40 mg/dL (0.2-1.0) 04/25/20 05:49 AST 23 Units/L (15-37) 04/25/20 05:49 ALT 14 Units/L (12-78) 04/25/20 05:49 Alkaline Phosphatase 24 Units/L (46-116) L 04/25/20 05:49 Total Protein 4.5 g/dL (6.4-8.2) L 04/25/20 05:49 Albumin 2.5 g/dL (3.4-5.0) L 04/25/20 05:49 Globulin 2.0 g/dL (2.5-4.5) L 04/25/20 05:49 Albumin/Globulin Ratio 1.3 Ratio (1.1-2.1) 04/25/20 05:49 Vitamin B12 1694 pg/mL (193-986) H 04/24/20 06:00 Folate > 20.0 ng/mL (>8.6) 04/24/20 06:00 SARS CoV-2 RNA Rapid ELYSIA Negative (NEGATIVE) 04/22/20 13:56 - Plan (1) Acute renal failure superimposed on stage 4 chronic kidney disease Status: Acute Qualifiers: Acute renal failure type: unspecified Qualified Code(s): N17.9 - Acute kidney failure, unspecified; N18.4 - Chronic kidney disease, stage 4 (severe) Plan: Continue with gentle IV hydration as tolerated. Daily comprehensive metabolic panel and complete blood count. Strict Is and Os. (2) Acute hyponatremia Status: Acute (3) Failure to thrive Status: Acute Qualifiers: Failure to thrive age range: in adult Qualified Code(s): R62.7 - Adult failure to thrive Plan: he patient does have a history of leukemia. She is currently having some Pancytopenia. We will continue to monitor daily labs and we also ordered an anemia panel. Continue to encourage oral hydration as well as nutritional supplementation. (4) Generalized weakness Status: Acute (5) GERD (gastroesophageal reflux disease) Status: Chronic Qualifiers: Esophagitis presence: esophagitis presence not specified Qualified Code(s): K21.9 - Gastro-esophageal reflux disease without esophagitis Plan: History of colitis. We will continue with current medication regimen. Advance diet as tolerated and followup with Dr. Alexander on an outpatient basis.
[2020-04-25] MEDS ORDERED: BUTT CREAM (COMPOUND) ONE (14:12)
[2020-04-25] MEDS: BUTT CREAM (COMPOUND) TOP PRN (14:15)
[2020-04-26] MEDS: BUTT CREAM (COMPOUND) TOP PRN (03:59)
[2020-04-26 07:01] LABS: BASOPHILS % (AUTO) 1.6 % (0.2-1.0); EOSINOPHILS % (AUTO) 0.4 % (0.9-2.9); HEMATOCRIT 25.5 % (36.0-47.0); LYMPHOCYTES # (AUTO) 0.4 X10^3/uL (1.3-2.9); MONOCYTES # (AUTO) 0.3 x10^3/uL (0.3-0.8); MONOCYTES % (AUTO) 13.8 % (0.0-13.0); RED BLOOD COUNT 2.58 X10^6/uL (3.5-5.4)
[2020-04-26 07:05] LABS: HEMOGLOBIN 8.6 g/dL (12.0-16.0); LYMPHOCYTES % (AUTO) 22.5 % (21.0-51.0); MEAN CORPUSCULAR HEMOGLOBIN 33.5 pg (27.0-34.0); MEAN CORPUSCULAR HGB CONC 33.8 g/dL (33.0-35.0); MEAN CORPUSCULAR VOLUME 99.1 fL (80.0-100.0); NEUTROPHILS # (AUTO) 1.1 x10^3/uL (2.2-4.8); NEUTROPHILS % (AUTO) 61.7 % (42.0-75.0); PLATELET COUNT 93 X10^3/uL (150.0-450.0)
[2020-04-26 07:08] LABS: ALANINE AMINOTRANSFERASE 11 Units/L (12-78); ALBUMIN 2.7 g/dL (3.4-5.0); ALKALINE PHOSPHATASE 26 Units/L (46-116); ASPARTATE AMINO TRANSFERASE 26 Units/L (15-37); BLOOD UREA NITROGEN 10 mg/dL (7-18); CALCIUM 7.9 mg/dL (8.5-10.1); CARBON DIOXIDE 20.4 mmol/L (21-32); CHLORIDE 104 mmol/L (98-107); COR CA(FOR HYPOALB) 8.9 mg/dL (8.5-10.1); SODIUM 136 mmol/L (136-145); TOTAL PROTEIN 4.8 g/dL (6.4-8.2); eGFR NON BLACK RACES 42 (>60)
[2020-04-26 07:39] LABS: WHITE BLOOD COUNT 1.8 X10^3/uL (3.6-10.0)
[2020-04-26] MEDS: PROTONIX INJ 40 MG VIAL IVP SCH ×2 (09:05→20:45)
[2020-04-26] MEDS: SINEMET (PLAIN) 10/100 MG PO SCH ×2 (09:06→20:44)
[2020-04-26] MEDS: TYLENOL 500 MG TAB EXTRA STRENGTH PO PRN (09:06)
[2020-04-26] MEDS: NS 1000 ML 1,000 ML IV SCH ×2 (09:07→19:49)
[2020-04-26 10:29] LABS: BILIRUBIN,URINE NEGATIVE (NEGATIVE); BLOOD/HEMOGLOBIN,URINE 1+ (NEGATIVE); COLOR,URINE YELLOW (YELLOW); GLUCOSE, URINE NEGATIVE (NEGATIVE); KETONES,URINE 2+ (NEGATIVE); LEUKOCYTE ESTERASE ,URINE NEGATIVE (NEGATIVE); NITRITES,URINE NEGATIVE (NEGATIVE); PROTEIN,URINE NEGATIVE (NEGATIVE); UROBILINOGEN,URINE NORMAL (NORMAL)
[2020-04-26 10:30] LABS: APPEARANCE,URINE SLIGHTLY HAZY (CLEAR)
[2020-04-26 10:35] LABS: AMORPHOUS SEDIMENT,UR 2+ /HPF (NEGATIVE); BACTERIA,URINE 2+ /HPF (NEGATIVE); SQUAMOUS EPITHELIAL CELL,UR MODERATE /HPF (NEGATIVE)
[2020-04-26 10:36] LABS: HYALINE CASTS, URINE RARE /LPF (NEGATIVE)
--- NOTE | 2020-04-26 13:17 | PCM.PROG ---
Progress Note - Progress Note for Day of Date of Exam: 04/26/20 - Subjective Subjective: The patient is a pleasant 84-year-old white female who is a patient of who was admitted on 04/22/20. She is suffering from generalized weakness due to acute dehydration and acute renal failure as well as hyponatremia. The patient has been on gentle IV hydration with strict Is and Os. She has a history of congestive heart failure and has a Pacemaker as well as a history of Leukemia. On exam, the patient is awake, alert, and oriented. She is oriented to self and situation. She has diffuse diminished lung bases. No rales, wheezing, or rhonchi. She has a Pacemaker present. Heart rate is a controlled rate and rhythm. Abdomen is obese but nontender. Bowel sounds are present times all four quadrants. She does have bilateral lower extremity 1+ edema noted. Bilateral pedal pulses are positive. The patients sodium was up to 136 today. Her BUN was 10 and creatinine was down to 1.30. Her white blood cell count was 1.8 and hemoglobin was 8.6. Platelets were at 93 today. She does have a history of pancytopenia. The patient denies any shortness of breath at this time. She had an abdomen series on the which was normal. The patient has been experiencing GI issues of colitis as well as gastroesophageal reflux disease, some dysphagia, and possible gastroparesis. She is periodically vomiting. We cannot relate it to any medication or change in eating habits. She has been under the care of Dr. Alexander. We are going to continue with anti-emetics and home medications of Sinemet along with gentle hydration and strict Is and Os. There is an order in for a urinalysis due to patient having complaining of having decreased urine output. Otherwise, we will follow up with am labs and continue to monitor. TIME SPENT ON CLINICAL ASSESSMENT, REVIEWING LABS AND IMAGING, DECISION MAKING, AND DOCUMENTATION GREATER THAN 75 MINUTES. - Past Medical Family Social History Past Med/Fam/Surg Hx: No changes since H&P Allergies: Allergies No Known Drug Allergies Allergy (Verified 02/11/20 10:48) - Review of Systems ROS: No change since H&P - Vital Signs and I&O's Vital Signs: Temperature 97.6 F Pulse Rate [Left Radial] 53 Pulse Rate 60 Respiratory Rate 20 Blood Pressure [Left Calf] 86/40 Blood Pressure [Right Arm] 98/50 Blood Pressure 100/55 O2 Sat by Pulse Oximetry 99 Intake and Output: Intake & Output 04/24/20 04/25/20 04/26/20 04/27/20 11:59 11:59 11:59 11:59 Intake Total 1180 / 1180 2963 / 2963 502 / 502 Balance 1180 / 1180 2963 / 2963 502 / 502 - Physical Exam Oriented: Normal Eyes: Normal Ear: Normal Nose: Normal Throat: Normal Respiratory: Generalized, Diminished Cardiovascular: Edema (upper and lower extremity edema ) : Normal Auscultation: Bowel Sounds: Normal Palpation: Normal Tenderness: Normal Skin: Decreased Turgur Musculoskeletal: Normal Psychiatric: Normal Mood Description: Calm Affect: Normal Speech Pattern: Clear, Appropriate - Laboratory and Diagnostics Result Diagrams: 04/26/20 06:45 04/26/20 06:45 Labs: Laboratory WBC 1.8 X10^3/uL (3.6-10.0) L* 04/26/20 06:45 RBC 2.58 X10^6/uL (3.5-5.4) L 04/26/20 06:45 Hgb 8.6 g/dL (12.0-16.0) L 04/26/20 06:45 Hct 25.5 % (36.0-47.0) L 04/26/20 06:45 MCV 99.1 fL (80.0-100.0) 04/26/20 06:45 MCH 33.5 pg (27.0-34.0) 04/26/20 06:45 MCHC 33.8 g/dL (33.0-35.0) 04/26/20 06:45 RDW 14.0 % (11.6-16.5) 04/26/20 06:45 Plt Count 93 X10^3/uL (150.0-450.0) L 04/26/20 06:45 Plt Count Comment Decreased (ADEQUATE) A 04/25/20 05:49 MPV 9.0 fL (7.4-11.0) 04/26/20 06:45 Neut % (Auto) 61.7 % (42.0-75.0) 04/26/20 06:45 Lymph % (Auto) 22.5 % (21.0-51.0) 04/26/20 06:45 [place] % (Auto) 13.8 % (0.0-13.0) H 04/26/20 06:45 Eos % (Auto) 0.4 % (0.9-2.9) L 04/26/20 06:45 Baso % (Auto) 1.6 % (0.2-1.0) H 04/26/20 06:45 Neut # (Auto) 1.1 x10^3/uL (2.2-4.8) L 04/26/20 06:45 Lymph # (Auto) 0.4 X10^3/uL (1.3-2.9) L 04/26/20 06:45 [place] # (Auto) 0.3 x10^3/uL (0.3-0.8) 04/26/20 06:45 Eos # (Auto) 0.0 x10^3/uL (0.0-0.2) 04/26/20 06:45 Baso # (Auto) 0.0 X10^3/uL (0.0-0.1) 04/26/20 06:45 Absolute Nucleated RBC 0.2 /100WBC 04/26/20 06:45 Total Counted 50 04/25/20 05:49 Neutrophils % (Manual) 60 % (39-76) 04/25/20 05:49 Band Neutrophils % 2 % (0-10) 04/25/20 05:49 Lymphocytes % (Manual) 30 % (13-43) 04/25/20 05:49 Monocytes % (Manual) 8 % (4-9) 04/25/20 05:49 Plt Morphology Comment Normal (NORMAL) 04/25/20 05:49 RBC Morphology Normal (NORMAL) 04/25/20 05:49 Sodium 136 mmol/L (136-145) 04/26/20 06:45 Corrected Sodium TNP 04/26/20 06:45 Potassium 3.5 mmol/L (3.5-5.1) 04/26/20 06:45 Chloride 104 mmol/L (98-107) 04/26/20 06:45 Carbon Dioxide 20.4 mmol/L (21-32) L 04/26/20 06:45 BUN 10 mg/dL (7-18) 04/26/20 06:45 Creatinine 1.30 mg/dL (0.55-1.02) H 04/26/20 06:45 Est GFR (MDRD) Af Amer 50 (>60) L 04/26/20 06:45 Est GFR (MDRD) Non-Af 42 (>60) L 04/26/20 06:45 Glucose 66 mg/dL (65-99) 04/26/20 06:45 Calcium 7.9 mg/dL (8.5-10.1) L 04/26/20 06:45 Corrected Calcium 8.9 mg/dL (8.5-10.1) 04/26/20 06:45 Iron 50 ug/dL (50-175) 04/24/20 06:00 Transferrin 136 mg/dL (202-364) L 04/24/20 06:00 Ferritin 120 ng/mL (8-252) 04/24/20 06:00 Total Bilirubin 0.50 mg/dL (0.2-1.0) 04/26/20 06:45 AST 26 Units/L (15-37) 04/26/20 06:45 ALT 11 Units/L (12-78) L 04/26/20 06:45 Alkaline Phosphatase 26 Units/L (46-116) L 04/26/20 06:45 Total Protein 4.8 g/dL (6.4-8.2) L 04/26/20 06:45 Albumin 2.7 g/dL (3.4-5.0) L 04/26/20 06:45 Globulin 2.1 g/dL (2.5-4.5) L 04/26/20 06:45 Albumin/Globulin Ratio 1.3 Ratio (1.1-2.1) 04/26/20 06:45 Vitamin B12 1694 pg/mL (193-986) H 04/24/20 06:00 Folate > 20.0 ng/mL (>8.6) 04/24/20 06:00 Specimen Type Catherized urine 04/26/20 10:00 Urine Color Yellow (YELLOW) 04/26/20 10:00 Urine Appearance Slightly hazy (CLEAR) 04/26/20 10:00 Urine pH 5.0 (5.0 - 8.0) 04/26/20 10:00 Ur Specific [place] 1.020 (1.000-1.030) 04/26/20 10:00 Urine Protein Negative (NEGATIVE) 04/26/20 10:00 Urine Glucose (UA) Negative (NEGATIVE) 04/26/20 10:00 Urine Ketones 2+ (NEGATIVE) 04/26/20 10:00 Urine Occult Blood 1+ (NEGATIVE) 04/26/20 10:00 Urine Nitrite Negative (NEGATIVE) 04/26/20 10:00 Urine Bilirubin Negative (NEGATIVE) 04/26/20 10:00 Urine Urobilinogen Normal (NORMAL) 04/26/20 10:00 Ur Leukocyte Esterase Negative (NEGATIVE) 04/26/20 10:00 Urine RBC 3-5 /HPF (0-3) A 04/26/20 10:00 Urine WBC 3-5 /HPF (0-5) 04/26/20 10:00 Ur Squamous Epith Cells Moderate /HPF (NEGATIVE) 04/26/20 10:00 Amorphous Sediment 2+ /HPF (NEGATIVE) 04/26/20 10:00 Urine Bacteria 2+ /HPF (NEGATIVE) 04/26/20 10:00 Hyaline Casts Rare /LPF (NEGATIVE) 04/26/20 10:00 Ur Culture Indicated? Yes/culture set up 04/26/20 10:00 SARS CoV-2 RNA Rapid ELYSIA Negative (NEGATIVE) 04/22/20 13:56 - Plan (1) Acute renal failure superimposed on stage 4 chronic kidney disease Status: Acute Qualifiers: Acute renal failure type: unspecified Qualified Code(s): N17.9 - Acute kidney failure, unspecified; N18.4 - Chronic kidney disease, stage 4 (severe) Plan: Continue with gentle IV hydration as tolerated. Daily comprehensive metabolic panel and complete blood count. Strict Is and Os. (2) Acute hyponatremia Status: Acute (3) Failure to thrive Status: Acute Qualifiers: Failure to thrive age range: in adult Qualified Code(s): R62.7 - Adult failure to thrive Plan: he patient does have a history of leukemia. She is currently having some Pancytopenia. We will continue to monitor daily labs and we also ordered an anemia panel. Continue to encourage oral hydration as well as nutritional supplementation. (4) Generalized weakness Status: Acute (5) GERD (gastroesophageal reflux disease) Status: Chronic Qualifiers: Esophagitis presence: esophagitis presence not specified Qualified Code(s): K21.9 - Gastro-esophageal reflux disease without esophagitis Plan: History of colitis. We will continue with current medication regimen. Advance diet as tolerated and followup with Dr. Alexander on an outpatient basis.
[2020-04-26] MEDS: DESITIN DIAPER RASH CREAM TOP SCH ×2 (18:34→22:15)
[2020-04-26] MEDS ORDERED: KLOR-CON PO PRN (20:25)
[2020-04-26] MEDS ORDERED: POTASSIUM CHL 40 MEQ/NS 0.45% 500 ML IV PRN (20:25)
[2020-04-26] MEDS ORDERED: K-RIDER 10 MEQ/NS 100 ML 10 MEQ/100 ML BAG IV PRN (20:25)
[2020-04-26] MEDS ORDERED: MICRO K EXTEN CAP 10 MEQ PO PRN (20:25)
[2020-04-26] MEDS ORDERED: POTASSIUM CHLORIDE LIQ 20 MEQ UDC PO PRN (20:25)
[2020-04-26] MEDS ORDERED: POTASSIUM CHL 60 MEQ/NS 0.45% 500 ML IV PRN (20:25)
[2020-04-26] MEDS: K-DUR TAB 20 MEQ PO PRN (21:47)
[2020-04-27] MEDS: MAGNESIUM SULFATE 1 GRAM/100 mL PREMIX 1 GM/100 ML BAG IV PRN ×6 (01:23→12:00)
[2020-04-27] MEDS: NS 1000 ML 1,000 ML IV SCH ×2 (01:24→20:06)
[2020-04-27] MEDS: DESITIN DIAPER RASH CREAM TOP SCH ×3 (05:13→21:57)
[2020-04-27 06:29] LABS: EOSINOPHILS % (AUTO) 0.1 % (0.9-2.9); HEMATOCRIT 22.7 % (36.0-47.0); HEMOGLOBIN 7.7 g/dL (12.0-16.0); LYMPHOCYTES # (AUTO) 0.4 X10^3/uL (1.3-2.9); LYMPHOCYTES % (AUTO) 22.9 % (21.0-51.0); MEAN CORPUSCULAR HEMOGLOBIN 33.5 pg (27.0-34.0); MEAN CORPUSCULAR HGB CONC 33.9 g/dL (33.0-35.0); MEAN CORPUSCULAR VOLUME 98.8 fL (80.0-100.0); MEAN PLATELET VOLUME 9.2 fL (7.4-11.0); MONOCYTES # (AUTO) 0.3 x10^3/uL (0.3-0.8); MONOCYTES % (AUTO) 15.4 % (0.0-13.0); NEUTROPHILS # (AUTO) 1.2 x10^3/uL (2.2-4.8); NEUTROPHILS % (AUTO) 60.6 % (42.0-75.0); PLATELET COUNT 86 X10^3/uL (150.0-450.0); RED BLOOD COUNT 2.29 X10^6/uL (3.5-5.4); RED CELL DISTRIBUTION WIDTH 13.7 % (11.6-16.5)
[2020-04-27 06:33] LABS: ALANINE AMINOTRANSFERASE 11 Units/L (12-78); ALBUMIN 2.2 g/dL (3.4-5.0); ALKALINE PHOSPHATASE 23 Units/L (46-116); ASPARTATE AMINO TRANSFERASE 21 Units/L (15-37); BLOOD UREA NITROGEN 9 mg/dL (7-18); CALCIUM 7.8 mg/dL (8.5-10.1); CARBON DIOXIDE 21.9 mmol/L (21-32); CHLORIDE 105 mmol/L (98-107); COR CA(FOR HYPOALB) 9.2 mg/dL (8.5-10.1); CREATININE 1.16 mg/dL (0.55-1.02); MAGNESIUM 1.5 mg/dL (1.7-2.9); SODIUM 137 mmol/L (136-145); TOTAL PROTEIN 4.2 g/dL (6.4-8.2); eGFR NON BLACK RACES 47 (>60)
[2020-04-27 07:51] LABS: PLATELET MORPHOLOGY COMMENT NORMAL (NORMAL)
[2020-04-27] MEDS: PROTONIX INJ 40 MG VIAL IVP SCH ×2 (09:22→20:50)
[2020-04-27] MEDS: SINEMET (PLAIN) 10/100 MG PO SCH ×2 (09:22→20:49)
[2020-04-27] MEDS: MAG-OX TAB PO SCH ×2 (09:22→20:49)
[2020-04-27] MEDS: K-DUR TAB 20 MEQ PO PRN (09:23)
[2020-04-27] MEDS: PATIENT'S HOME MEDICATION PO SCH (15:00)
--- NOTE | 2020-04-27 17:19 | DR.H&P ---
H&P - History & Physical for Day of: H&P Date: 04/22/20 - Chief Complaint Chief Complaint: WEAKNESS, DEHYDRATION, CONFUSION - History of Present Illness History of Present Illness: An 84 y/o female presenting with complain of not feeling good since awakening this morning. She denies abdominal pain but has nausea and is weak. Pt has pmh of gerd, recent colitits, leukemia, anemia, oa and pace maker. Pt has had decrease po intake with vomiting. Pt admitted for treatment of acute dehydration - Past Medical History Past Medical History: Anxiety, Arthritis, Dyslipidemia, GERD, Hypertension Additional Medical History: S/P PACEMAKER. LEUKEMIA - Past Surgical History Surgical History: Hysterectomy - Family History Family Medical History: Hypertension - Social History Does patient currently use any type of tobacco product: No Have you used tobacco products in the last 12 months: No Type of Tobacco Use: None Does any household member use tobacco: No Alcohol Use: None Drug Use: None - Medications Home Medications: No Known Drug Allergies Allergy (Verified 02/11/20 10:48) CONTINUE taking the following medications amlodipine 10 mg PO DAILY 04/23/20 [History] folic acid 1 mg PO DAILY 04/23/20 [History] hydrochlorothiazide 12.5 mg PO DAILY 04/23/20 [History] imatinib 400 mg PO DAILY 04/23/20 [History] levothyroxine 75 mcg PO DAILY 04/23/20 [History] lisinopril 20 mg PO DAILY 04/23/20 [History] meloxicam 7.5 mg PO DAILY 04/23/20 [History] metoprolol tartrate 25 mg PO DAILY 04/23/20 [History] pantoprazole 40 mg PO DAILY 04/23/20 [History] potassium chloride 20 meq PO DAILY 04/23/20 [History] ranitidine HCl 300 mg PO DAILY 04/23/20 [History] simvastatin 20 mg PO DAILY 04/23/20 [History] - Review of Systems Constitutional: Weakness Eyes: No Symptoms Reported ENT: No Symptoms Reported Respiratory: SOB with Excertion Cardiovascular: No Symptoms Reported Gastrointestinal: Nausea, Vomiting Musculoskeletal: Back Pain, Leg Pain Skin: No Symptoms Reported Neurological: Weakness, Confusion - Physical Exam Vital Signs: Temperature 97.1 F Pulse Rate [Left Radial] 63 Pulse Rate 60 Respiratory Rate 18 Blood Pressure [Left Arm] 91/42 Blood Pressure [Left Calf] 86/40 Blood Pressure [Right Arm] 92/48 Blood Pressure 100/55 O2 Sat by Pulse Oximetry 98 Oriented: Normal Eyes: Normal Ear: Normal Nose: Normal Throat: Normal Respiratory: RLL Diminished, LLL Diminished Cardiovascular: Normal, Other (pace maker present) : Normal Auscultation: Bowel Sounds: Normal Palpation: Normal Tenderness: Epigastric, Mild Skin: Decreased Turgur Musculoskeletal: Back:Thoracic, Back:Lumbar Psychiatric: Normal Mood Description: Calm Speech Pattern: Clear, Appropriate - Assessment/Plan (1) Nausea & vomiting Status: Acute Plan: acute hypokalemia, hyponatremia, acute renal failure. admit, gentle iv hydration, strict I&os. bp and cardiac monitoring. encourage po hydration, verify home medication. ppi therapy, nausea control (2) Glaucoma Status: Chronic (3) Pacemaker Status: Chronic (4) History of anemia Status: Chronic (5) Leukemia Status: Chronic (6) Diabetes Status: Chronic (7) Hypothyroidism Status: Chronic (8) Dyspnea Status: Acute - Allergies Allergies/Adverse Reactions: Allergies Allergy/AdvReac Type Severity Reaction Status Date / Time No Known Drug Allergies Allergy Verified 02/11/20 10:48
[2020-04-27] MEDS ORDERED: ZOFRAN INJ 4 MG VIAL ONE (22:43)
[2020-04-27] MEDS: ZOFRAN INJ 4 MG VIAL IVP PRN (22:45)
[2020-04-28] MEDS: NS 1000 ML 1,000 ML IV SCH (04:50)
[2020-04-28 06:30] LABS: BASOPHILS % (AUTO) 0.6 % (0.2-1.0); EOSINOPHILS % (AUTO) 0.1 % (0.9-2.9); HEMATOCRIT 23.1 % (36.0-47.0); HEMOGLOBIN 7.8 g/dL (12.0-16.0); LYMPHOCYTES # (AUTO) 0.5 X10^3/uL (1.3-2.9); LYMPHOCYTES % (AUTO) 26.5 % (21.0-51.0); MEAN CORPUSCULAR HEMOGLOBIN 33.2 pg (27.0-34.0); MEAN CORPUSCULAR HGB CONC 33.9 g/dL (33.0-35.0); MEAN CORPUSCULAR VOLUME 97.9 fL (80.0-100.0); MONOCYTES # (AUTO) 0.3 x10^3/uL (0.3-0.8); MONOCYTES % (AUTO) 13.7 % (0.0-13.0); NEUTROPHILS # (AUTO) 1.1 x10^3/uL (2.2-4.8); NEUTROPHILS % (AUTO) 59.1 % (42.0-75.0); PLATELET COUNT 83 X10^3/uL (150.0-450.0); RED BLOOD COUNT 2.36 X10^6/uL (3.5-5.4)
[2020-04-28] MEDS: DESITIN DIAPER RASH CREAM TOP SCH ×2 (06:38→14:20)
[2020-04-28 06:45] LABS: ALANINE AMINOTRANSFERASE 9 Units/L (12-78); ALBUMIN 2.2 g/dL (3.4-5.0); ALKALINE PHOSPHATASE 23 Units/L (46-116); ASPARTATE AMINO TRANSFERASE 17 Units/L (15-37); BLOOD UREA NITROGEN 6 mg/dL (7-18); CALCIUM 7.7 mg/dL (8.5-10.1); CHLORIDE 104 mmol/L (98-107); COR CA(FOR HYPOALB) 9.1 mg/dL (8.5-10.1); CREATININE 0.89 mg/dL (0.55-1.02); SODIUM 134 mmol/L (136-145); TOTAL PROTEIN 4.2 g/dL (6.4-8.2); eGFR NON BLACK RACES > 60 (>60)
[2020-04-28 07:19] LABS: WHITE BLOOD COUNT 1.9 X10^3/uL (3.6-10.0)
[2020-04-28 07:20] LABS: PLATELET MORPHOLOGY COMMENT NORMAL (NORMAL)
--- NOTE | 2020-04-28 09:19 | RAD ---
HISTORYCongestive heart failureSTUDYChest AP [id number]/2021FINDINGSThere is a pacemaker present on the left obscuring a portion of t he left lower lobe. Heart size is normal. Laura are normal. The lungs are free of acute alveolar infil trates. No definite pleural effusions are identified. Air density under the right hemidiaphragm is du e to colon interposition as demonstrated on CT abdomen pelvis 04/05/2020IMPRESSIONNo significant abno rmality identifiedElectronically signed by: KATE ACOSTA (Apr 28, 2020 09:18:04)
[2020-04-28] MEDS: SINEMET (PLAIN) 10/100 MG PO SCH (09:52)
[2020-04-28] MEDS: PROTONIX INJ 40 MG VIAL IVP SCH (09:53)
[2020-04-28] MEDS: PATIENT'S HOME MEDICATION PO SCH (09:53)
[2020-04-28] MEDS: MAG-OX TAB PO SCH (09:53)
[2020-04-28] MEDS: ZOFRAN INJ 4 MG VIAL IVP PRN (10:51)
[2020-04-28 13:18] LABS: BASOPHILS % (AUTO) 0.6 % (0.2-1.0); HEMATOCRIT 26.8 % (36.0-47.0); LYMPHOCYTES # (AUTO) 0.4 X10^3/uL (1.3-2.9); LYMPHOCYTES % (AUTO) 14.6 % (21.0-51.0); MEAN CORPUSCULAR HEMOGLOBIN 33.5 pg (27.0-34.0); MEAN CORPUSCULAR HGB CONC 33.7 g/dL (33.0-35.0); MEAN CORPUSCULAR VOLUME 99.2 fL (80.0-100.0); MEAN PLATELET VOLUME 8.2 fL (7.4-11.0); MONOCYTES # (AUTO) 0.2 x10^3/uL (0.3-0.8); MONOCYTES % (AUTO) 8.5 % (0.0-13.0); NEUTROPHILS % (AUTO) 76.3 % (42.0-75.0); PLATELET COUNT 92 X10^3/uL (150.0-450.0); RED CELL DISTRIBUTION WIDTH 13.8 % (11.6-16.5); WHITE BLOOD COUNT 2.6 X10^3/uL (3.6-10.0)
[2020-04-28 14:19] VITALS: BP 100/50
== END 2020-04-28 16:00 | disposition home health service (06) | DRG 683 ==
LOC: ER 10:29 → OBS 13:46 → MED/SURG 04-23 12:58
PROVIDERS: ADMIT Internal Medicine; ATTEND Internal Medicine
DX: C95.10 Chronic leukemia of unspecified cell type not having achieved remission; E87.6 Hypokalemia; N18.4 Chronic kidney disease, stage 4 (severe); R11.2 Nausea with vomiting, unspecified; Z95.0 Presence of cardiac pacemaker; E03.8 Other specified hypothyroidism; Z20.822 Contact with and (suspected) exposure to COVID-19; N17.8 Other acute kidney failure; R60.0 Localized edema; E11.65 Type 2 diabetes mellitus with hyperglycemia; E86.0 Dehydration; I12.9 Hypertensive chronic kidney disease with stage 1 through stage 4 chronic kidney disease, or unspecified chronic kidney disease; E87.1 Hypo-osmolality and hyponatremia; K21.9 Gastro-esophageal reflux disease without esophagitis; R62.7 Adult failure to thrive; E78.2 Mixed hyperlipidemia

== ENCOUNTER 2020-05-26 13:37 | Inpatient (IN) ==
[2020-05-26] MEDS ORDERED: ZOFRAN INJ 4 MG VIAL IVP PRN (14:29)
[2020-05-26 15:20] LABS: BASOPHILS % (AUTO) 0.5 % (0.2-1.0); HEMOGLOBIN 8.5 g/dL (12.0-16.0); LYMPHOCYTES # (AUTO) 0.3 X10^3/uL (1.3-2.9); LYMPHOCYTES % (AUTO) 12.2 % (21.0-51.0); MEAN CORPUSCULAR HEMOGLOBIN 33.6 pg (27.0-34.0); MEAN CORPUSCULAR HGB CONC 33.9 g/dL (33.0-35.0); MEAN CORPUSCULAR VOLUME 98.9 fL (80.0-100.0); MEAN PLATELET VOLUME 8.3 fL (7.4-11.0); MONOCYTES # (AUTO) 0.2 x10^3/uL (0.3-0.8); MONOCYTES % (AUTO) 7.4 % (0.0-13.0); NEUTROPHILS # (AUTO) 2.1 x10^3/uL (2.2-4.8); NEUTROPHILS % (AUTO) 79.9 % (42.0-75.0); PLATELET COUNT 97 X10^3/uL (150.0-450.0); RED BLOOD COUNT 2.53 X10^6/uL (3.5-5.4); RED CELL DISTRIBUTION WIDTH 15.4 % (11.6-16.5); WHITE BLOOD COUNT 2.6 X10^3/uL (3.6-10.0)
[2020-05-26 15:29] LABS: BLOOD UREA NITROGEN 17 mg/dL (7-18); CALCIUM 7.8 mg/dL (8.5-10.1); CARBON DIOXIDE 24.9 mmol/L (21-32); CHLORIDE 100 mmol/L (98-107); CREATININE 1.35 mg/dL (0.55-1.02); SODIUM 134 mmol/L (136-145); eGFR NON BLACK RACES 40 (>60)
[2020-05-26 15:31] LABS: ALANINE AMINOTRANSFERASE 14 Units/L (12-78); ALBUMIN 2.9 g/dL (3.4-5.0); ALKALINE PHOSPHATASE 25 Units/L (46-116); AMYLASE 35 Units/L (25-115); ASPARTATE AMINO TRANSFERASE 22 Units/L (15-37); COR CA(FOR HYPOALB) 8.7 mg/dL (8.5-10.1); LIPASE 218 Units/L (73-393); MAGNESIUM 1.3 mg/dL (1.7-2.9); TOTAL PROTEIN 4.8 g/dL (6.4-8.2)
[2020-05-26] MEDS ORDERED: POTASSIUM CHLORIDE LIQ 20 MEQ UDC PO PRN (15:56)
[2020-05-26] MEDS ORDERED: MICRO K EXTEN CAP 10 MEQ PO PRN (15:56)
[2020-05-26] MEDS ORDERED: K-DUR TAB 20 MEQ PO PRN (15:56)
[2020-05-26] MEDS ORDERED: KLOR-CON PO PRN (15:56)
[2020-05-26] MEDS ORDERED: K-RIDER 10 MEQ/NS 100 ML 10 MEQ/100 ML BAG IV PRN (15:56)
[2020-05-26] MEDS ORDERED: POTASSIUM CHL 40 MEQ/NS 0.45% 500 ML IV PRN (15:56)
[2020-05-26] MEDS ORDERED: POTASSIUM CHL 60 MEQ/NS 0.45% 500 ML IV PRN (15:56)
--- NOTE | 2020-05-26 16:03 | RAD ---
Acute abdomen series supine upright and chestIndication: History of bowel resection and pacemakerFINDINGSThere is gas stool in the colon. Cholecystectomy clips noted in the right upper quadrant. No markedly dilated loop of bowel, free air or pneumatosis identified. Heart size is prominent. No dense consolidation seen. Trace right pleural fluid possible.IMPRESSION1. No convincing high-grade obstruction, free air or pneumatosis.2. Follow-up with further imaging if symptoms persist or worsen.Electronically signed by: JENNIFER MAURICIO (May 26, 2020 16:01:52)
[2020-05-26 16:50] VITALS: BMI 30.2
[2020-05-26] MEDS: NS 1/2 + KCL 20 MEQ/L 1,000 ML IV SCH (16:59)
[2020-05-26] MEDS: MERREM VIAL 500 MG in NS 100 ML IV + SPIKE MINIBAG* 100 ML IV SCH ×2 (16:59→21:37)
[2020-05-26] MEDS: PROTONIX INJ 40 MG VIAL IVP SCH ×2 (16:59→21:39)
[2020-05-26 17:03] LABS: BILIRUBIN,URINE 2+ (NEGATIVE); BLOOD/HEMOGLOBIN,URINE 1+ (NEGATIVE); GLUCOSE, URINE NEGATIVE (NEGATIVE); KETONES,URINE 2+ (NEGATIVE); LEUKOCYTE ESTERASE ,URINE 1+ (NEGATIVE); NITRITES,URINE NEGATIVE (NEGATIVE); PROTEIN,URINE 2+ (NEGATIVE); UROBILINOGEN,URINE NORMAL (NORMAL)
[2020-05-26 17:08] LABS: APPEARANCE,URINE CLEAR (CLEAR); COLOR,URINE YELLOW (YELLOW)
[2020-05-26 17:09] LABS: BACTERIA,URINE NEGATIVE /HPF (NEGATIVE); RBC,URINE 0-2 /HPF (0-3); SQUAMOUS EPITHELIAL CELL,UR NEGATIVE /HPF (NEGATIVE)
--- NOTE | 2020-05-26 18:01 | DR.H&P ---
H&P - History & Physical for Day of: H&P Date: 05/26/20 - Chief Complaint Chief Complaint: weakness, n/v/d, abdominal swelling - History of Present Illness History of Present Illness: PT IS 84 WF DIRECT ADMIT FROM DR MAHMOOD OFFICE WITH CO ABDOMINAL DISTENTION, N/V/D, WEAKNESS. PT WAS SEEN IN ER ON 05/19 THEN HAD OUTPT LABS. PT HAD UTI AND CANNOT TOLERATE PO MEDICATION DUE TO GI COMPLAINTS. PT HAS PMH OF LEUKEMIA, GERD, OA, SICK SINUS SYN. - Past Medical History Past Medical History: Hypertension, Dyslipidemia, Anxiety, GERD, Arthritis Additional Medical History: S/P PACEMAKER. LEUKEMIA - Past Surgical History Surgical History: Hysterectomy, Other - Family History Family Medical History: Hypertension - Social History Does patient currently use any type of tobacco product: No Have you used tobacco products in the last 12 months: No Type of Tobacco Use: None Does any household member use tobacco: No Alcohol Use: None Drug Use: None - Medications Home Medications: No Known Drug Allergies Allergy (Verified 02/11/20 10:48) - Review of Systems Constitutional: Weakness Eyes: No Symptoms Reported ENT: No Symptoms Reported Respiratory: No Symptoms Reported Cardiovascular: No Symptoms Reported Gastrointestinal: Nausea, Vomiting, Abdominal Pain, Diarrhea Genitourinary: No Symptoms Reported Musculoskeletal: No Symptoms Reported Skin: No Symptoms Reported Neurological: Weakness - Physical Exam Vital Signs: Temperature 98.3 F Pulse Rate [Left Radial] 60 Respiratory Rate 19 Blood Pressure [Left Arm] 126/53 O2 Sat by Pulse Oximetry 99 Oriented: Person Eyes: Normal Ear: Normal Nose: Normal Throat: Dry Respiratory: RLL Diminished, LLL Diminished : Normal Auscultation: Bowel Sounds: Normal Palpation: Normal Tenderness: Diffuse, Moderate Skin: Decreased Turgur Musculoskeletal: Back:Lumbar, Motor Deficit Affect: Depressed Speech Pattern: Appropriate, Delayed - Assessment/Plan (1) Acute gastroenteritis Status: Acute Plan: ADMIT, IV HYDRATION. STRICT I&O, PPI THERAPY. IV ATBX, ABD ON EXAM, ADMISSION LABS, BC AND REPEAT UC. VERIFY HOME MEDICATION, PT CONSULT (2) Leukemia Status: Chronic (3) Diabetes Status: Chronic (4) GERD (gastroesophageal reflux disease) Qualifiers: Esophagitis presence: esophagitis presence not specified Qualified Code(s): K21.9 - Gastro-esophageal reflux disease without esophagitis Status: Chronic (5) UTI (urinary tract infection) Status: Acute (6) Hypokalemia Status: Acute (7) Failure to thrive Qualifiers: Failure to thrive age range: in adult Qualified Code(s): R62.7 - Adult failure to thrive Status: Acute - Allergies Allergies/Adverse Reactions: Allergies Allergy/AdvReac Type Severity Reaction Status Date / Time No Known Drug Allergies Allergy Verified 02/11/20 10:48
[2020-05-26] MEDS: MAGNESIUM SULFATE 1 GRAM/100 mL PREMIX 1 GM/100 ML BAG IV PRN ×3 (20:02→23:41)
[2020-05-26] MEDS: SINEMET (PLAIN) 10/100 MG PO SCH (21:32)
[2020-05-27] MEDS: MAGNESIUM SULFATE 1 GRAM/100 mL PREMIX 1 GM/100 ML BAG IV PRN (00:43)
[2020-05-27] MEDS: NS 1/2 + KCL 20 MEQ/L 1,000 ML IV SCH ×3 (04:31→22:05)
[2020-05-27] MEDS: MERREM VIAL 500 MG in NS 100 ML IV + SPIKE MINIBAG* 100 ML IV SCH ×3 (05:14→22:05)
[2020-05-27] MEDS ORDERED: ZESTRIL TAB 20 MG ONE (08:33)
[2020-05-27] MEDS: SINEMET (PLAIN) 10/100 MG PO SCH ×2 (09:05→20:55)
[2020-05-27] MEDS: ZOCOR TAB 20 MG PO SCH (09:05)
[2020-05-27] MEDS: LOPRESSOR TAB 25 MG PO SCH (09:05)
[2020-05-27] MEDS: ZESTRIL TAB 20 MG PO SCH (09:05)
[2020-05-27] MEDS: PROTONIX INJ 40 MG VIAL IVP SCH ×2 (09:05→22:05)
[2020-05-27 09:09] LABS: ALANINE AMINOTRANSFERASE 11 Units/L (12-78); ALBUMIN 2.7 g/dL (3.4-5.0); ALKALINE PHOSPHATASE 27 Units/L (46-116); ASPARTATE AMINO TRANSFERASE 23 Units/L (15-37); BLOOD UREA NITROGEN 15 mg/dL (7-18); CALCIUM 8.1 mg/dL (8.5-10.1); CARBON DIOXIDE 22.8 mmol/L (21-32); CHLORIDE 101 mmol/L (98-107); COR CA(FOR HYPOALB) 9.1 mg/dL (8.5-10.1); CREATININE 1.31 mg/dL (0.55-1.02); SODIUM 134 mmol/L (136-145); TOTAL PROTEIN 4.7 g/dL (6.4-8.2); eGFR NON BLACK RACES 41 (>60)
[2020-05-27 09:21] LABS: BASOPHILS % (AUTO) 0.5 % (0.2-1.0); EOSINOPHILS % (AUTO) 0.2 % (0.9-2.9); HEMATOCRIT 28.9 % (36.0-47.0); HEMOGLOBIN 9.7 g/dL (12.0-16.0); LYMPHOCYTES # (AUTO) 0.6 X10^3/uL (1.3-2.9); LYMPHOCYTES % (AUTO) 19.1 % (21.0-51.0); MEAN CORPUSCULAR HEMOGLOBIN 33.5 pg (27.0-34.0); MEAN CORPUSCULAR HGB CONC 33.7 g/dL (33.0-35.0); MEAN CORPUSCULAR VOLUME 99.4 fL (80.0-100.0); MEAN PLATELET VOLUME 9.7 fL (7.4-11.0); MONOCYTES # (AUTO) 0.3 x10^3/uL (0.3-0.8); MONOCYTES % (AUTO) 11.3 % (0.0-13.0); NEUTROPHILS # (AUTO) 2.1 x10^3/uL (2.2-4.8); NEUTROPHILS % (AUTO) 68.9 % (42.0-75.0); PLATELET COUNT 73 X10^3/uL (150.0-450.0); RED BLOOD COUNT 2.91 X10^6/uL (3.5-5.4); RED CELL DISTRIBUTION WIDTH 15.8 % (11.6-16.5)
[2020-05-27 09:36] LABS: IRON 43 ug/dL (50-175)
[2020-05-27] MEDS: SYNTHROID 75 mcg TAB PO SCH (17:19)
--- NOTE | 2020-05-27 17:51 | PCM.PROG ---
Progress Note - Progress Note for Day of Date of Exam: 05/27/20 - Subjective Subjective: PT IS 84 WF ADMITTED WITH ABDOMINAL PAIN, BLOATING, N/V/D. PT HAS HX OF COLITIS AND RECENTLY FAILED TREATMENT FOR UTI DUE TO PO MEDICATION INTOLERANT. PT WAS HYPONATREMIC AND HYPOKALEMIC ON ADMISSION WITH IMPROVING HYDRATION. PT HAD REPEAT UC ON THIS ADMISSION, CURRENTLY ON MEROPENEM FROM UC REPORT FROM05/19. PT IS ON PPI THERAPY WITH PLANS TO CONSULT DR CORDERO ON MONDAY. PT DENIES ANY CHEST PAIN OR SOB THIS AM - Past Medical Family Social History Past Med/Fam/Surg Hx: No changes since H&P Allergies: Allergies No Known Drug Allergies Allergy (Verified 02/11/20 10:48) - Review of Systems ROS: No change since H&P - Vital Signs and I&O's Vital Signs: Temperature 98.4 F Pulse Rate [Left Radial] 70 Respiratory Rate 18 Blood Pressure [Left Arm] 143/64 O2 Sat by Pulse Oximetry 94 Intake and Output: Intake & Output 05/25/20 05/26/20 05/27/20 05/28/20 11:59 11:59 11:59 11:59 Intake Total 1345 / 1345 1045 / 1045 Balance 1345 / 1345 1045 / 1045 - Physical Exam Oriented: Person Eyes: Normal Ear: Normal Nose: Normal Throat: Dry Respiratory: Diminished : Normal Auscultation: Bowel Sounds: Normal Tenderness: Diffuse, Moderate Skin: Decreased Turgur Musculoskeletal: Back:Lumbar, Motor Deficit Affect: Depressed Speech Pattern: Clear, Delayed - Laboratory and Diagnostics Result Diagrams: 05/27/20 05:20 05/27/20 11:43 Labs: 05/26/20 16:45 Urine,Clean Catch Urine Culture - Preliminary Laboratory WBC 3.0 X10^3/uL (3.6-10.0) L 05/27/20 05:20 RBC 2.91 X10^6/uL (3.5-5.4) L 05/27/20 05:20 Hgb 9.7 g/dL (12.0-16.0) L 05/27/20 05:20 Hct 28.9 % (36.0-47.0) L 05/27/20 05:20 MCV 99.4 fL (80.0-100.0) 05/27/20 05:20 MCH 33.5 pg (27.0-34.0) 05/27/20 05:20 MCHC 33.7 g/dL (33.0-35.0) 05/27/20 05:20 RDW 15.8 % (11.6-16.5) 05/27/20 05:20 Plt Count 73 X10^3/uL (150.0-450.0) L 05/27/20 05:20 MPV 9.7 fL (7.4-11.0) 05/27/20 05:20 Neut % (Auto) 68.9 % (42.0-75.0) 05/27/20 05:20 Lymph % (Auto) 19.1 % (21.0-51.0) L 05/27/20 05:20 [place] % (Auto) 11.3 % (0.0-13.0) 05/27/20 05:20 Eos % (Auto) 0.2 % (0.9-2.9) L 05/27/20 05:20 Baso % (Auto) 0.5 % (0.2-1.0) 05/27/20 05:20 Neut # (Auto) 2.1 x10^3/uL (2.2-4.8) L 05/27/20 05:20 Lymph # (Auto) 0.6 X10^3/uL (1.3-2.9) L 05/27/20 05:20 [place] # (Auto) 0.3 x10^3/uL (0.3-0.8) 05/27/20 05:20 Eos # (Auto) 0.0 x10^3/uL (0.0-0.2) 05/27/20 05:20 Baso # (Auto) 0.0 X10^3/uL (0.0-0.1) 05/27/20 05:20 Absolute Nucleated RBC 0.0 /100WBC 05/27/20 05:20 Sodium 134 mmol/L (136-145) L 05/27/20 05:20 Corrected Sodium TNP 05/27/20 05:20 Potassium 3.9 mmol/L (3.5-5.1) 05/27/20 11:43 Chloride 101 mmol/L (98-107) 05/27/20 05:20 Carbon Dioxide 22.8 mmol/L (21-32) 05/27/20 05:20 BUN 15 mg/dL (7-18) 05/27/20 05:20 Creatinine 1.31 mg/dL (0.55-1.02) H 05/27/20 05:20 Est GFR (MDRD) Af Amer 50 (>60) L 05/27/20 05:20 Est GFR (MDRD) Non-Af 41 (>60) L 05/27/20 05:20 Glucose 88 mg/dL (65-99) 05/27/20 05:20 Calcium 8.1 mg/dL (8.5-10.1) L 05/27/20 05:20 Corrected Calcium 9.1 mg/dL (8.5-10.1) 05/27/20 05:20 Magnesium 2.3 mg/dL (1.7-2.9) 05/27/20 05:20 Iron 43 ug/dL (50-175) L 05/27/20 05:20 Transferrin 134 mg/dL (202-364) L 05/27/20 05:20 Ferritin 121 ng/mL (8-252) 05/27/20 05:20 Total Bilirubin 0.50 mg/dL (0.2-1.0) 05/27/20 05:20 AST 23 Units/L (15-37) 05/27/20 05:20 ALT 11 Units/L (12-78) L 05/27/20 05:20 Alkaline Phosphatase 27 Units/L (46-116) L 05/27/20 05:20 B-Natriuretic Peptide 201 pg/mL (0-79) H 05/26/20 14:40 Total Protein 4.7 g/dL (6.4-8.2) L 05/27/20 05:20 Albumin 2.7 g/dL (3.4-5.0) L 05/27/20 05:20 Globulin 2.0 g/dL (2.5-4.5) L 05/27/20 05:20 Albumin/Globulin Ratio 1.4 Ratio (1.1-2.1) 05/27/20 05:20 Amylase 35 Units/L (25-115) 05/26/20 14:40 Lipase 218 Units/L (73-393) 05/26/20 14:40 Vitamin B12 857 pg/mL (193-986) 05/27/20 05:20 Folate 19.7 ng/mL (>8.6) 05/27/20 05:20 Specimen Type Clean catch urine 05/26/20 16:45 Urine Color Yellow (YELLOW) 05/26/20 16:45 Urine Appearance Clear (CLEAR) 05/26/20 16:45 Urine pH 5.0 (5.0 - 8.0) 05/26/20 16:45 Ur Specific [place] 1.025 (1.000-1.030) 05/26/20 16:45 Urine Protein 2+ (NEGATIVE) 05/26/20 16:45 Urine Glucose (UA) Negative (NEGATIVE) 05/26/20 16:45 Urine Ketones 2+ (NEGATIVE) 05/26/20 16:45 Urine Occult Blood 1+ (NEGATIVE) 05/26/20 16:45 Urine Nitrite Negative (NEGATIVE) 05/26/20 16:45 Urine Bilirubin 2+ (NEGATIVE) 05/26/20 16:45 Urine Urobilinogen Normal (NORMAL) 05/26/20 16:45 Ur Leukocyte Esterase 1+ (NEGATIVE) 05/26/20 16:45 Urine RBC 0-2 /HPF (0-3) 05/26/20 16:45 Urine WBC 0-2 /HPF (0-5) 05/26/20 16:45 Ur Squamous Epith Cells Negative /HPF (NEGATIVE) 05/26/20 16:45 Urine Bacteria Negative /HPF (NEGATIVE) 05/26/20 16:45 Ur Culture Indicated? No/not indicated 05/26/20 16:45 Stool Description 1g loose 05/27/20 16:25 Stl Occult Blood (IFOB) Negative (NEGATIVE) 05/27/20 16:25 Stool for White Cells Positive (NEGATIVE) A 05/27/20 16:25 SARS CoV-2 RNA Rapid ELYSIA Negative (NEGATIVE) 05/26/20 17:22 - Plan (1) Acute gastroenteritis Status: Acute Plan: IV HYDRATION. STRICT I&O, PPI THERAPY. IV ATBX, ABD ON EXAM, AM LABS, BC AND REPEAT UC. VERIFY HOME MEDICATION, PT CONSULT. GI CONSULT (2) Leukemia Status: Chronic (3) Diabetes Status: Chronic (4) GERD (gastroesophageal reflux disease) Status: Chronic Qualifiers: Esophagitis presence: esophagitis presence not specified Qualified Code(s): K21.9 - Gastro-esophageal reflux disease without esophagitis (5) UTI (urinary tract infection) Status: Acute (6) Hypokalemia Status: Acute (7) Failure to thrive Status: Acute Qualifiers: Failure to thrive age range: in adult Qualified Code(s): R62.7 - Adult failure to thrive
[2020-05-28] MEDS: NS 1/2 + KCL 20 MEQ/L 1,000 ML IV SCH (04:49)
[2020-05-28] MEDS: MERREM VIAL 500 MG in NS 100 ML IV + SPIKE MINIBAG* 100 ML IV SCH ×3 (05:01→21:10)
[2020-05-28 06:17] LABS: BASOPHILS % (AUTO) 0.9 % (0.2-1.0); EOSINOPHILS % (AUTO) 0.2 % (0.9-2.9); HEMOGLOBIN 9.5 g/dL (12.0-16.0); MONOCYTES # (AUTO) 0.3 x10^3/uL (0.3-0.8); PLATELET COUNT 83 X10^3/uL (150.0-450.0); RED BLOOD COUNT 2.79 X10^6/uL (3.5-5.4); WHITE BLOOD COUNT 2.8 X10^3/uL (3.6-10.0)
[2020-05-28 06:28] LABS: HEMATOCRIT 27.8 % (36.0-47.0); LYMPHOCYTES # (AUTO) 0.5 X10^3/uL (1.3-2.9); MEAN CORPUSCULAR HEMOGLOBIN 34.1 pg (27.0-34.0); MEAN CORPUSCULAR HGB CONC 34.2 g/dL (33.0-35.0); MEAN CORPUSCULAR VOLUME 99.7 fL (80.0-100.0); MEAN PLATELET VOLUME 8.8 fL (7.4-11.0); NEUTROPHILS % (AUTO) 70.9 % (42.0-75.0); RED CELL DISTRIBUTION WIDTH 15.9 % (11.6-16.5)
[2020-05-28 06:34] LABS: ALANINE AMINOTRANSFERASE 7 Units/L (12-78); ALBUMIN 2.4 g/dL (3.4-5.0); ALKALINE PHOSPHATASE 30 Units/L (46-116); ASPARTATE AMINO TRANSFERASE 20 Units/L (15-37); BLOOD UREA NITROGEN 13 mg/dL (7-18); CALCIUM 7.6 mg/dL (8.5-10.1); CARBON DIOXIDE 21.2 mmol/L (21-32); CHLORIDE 102 mmol/L (98-107); COR CA(FOR HYPOALB) 8.9 mg/dL (8.5-10.1); CREATININE 1.06 mg/dL (0.55-1.02); SODIUM 131 mmol/L (136-145); TOTAL PROTEIN 4.5 g/dL (6.4-8.2); eGFR NON BLACK RACES 53 (>60)
[2020-05-28] MEDS: ZESTRIL TAB 20 MG PO SCH (08:29)
[2020-05-28] MEDS: SINEMET (PLAIN) 10/100 MG PO SCH ×2 (08:29→21:10)
[2020-05-28] MEDS: LOPRESSOR TAB 25 MG PO SCH (08:29)
[2020-05-28] MEDS: ZOCOR TAB 20 MG PO SCH (08:30)
[2020-05-28] MEDS: PROTONIX INJ 40 MG VIAL IVP SCH ×2 (08:33→21:10)
[2020-05-28] MEDS: NS 1000 ML 1,000 ML IV SCH (10:00)
[2020-05-28] MEDS ORDERED: DIPRIVAN VIAL 20 ML ONE (11:57)
[2020-05-28] MEDS ORDERED: KETALAR ONE (12:12)
[2020-05-28] MEDS ORDERED: LASIX IVP SCH (13:00)
[2020-05-28] MEDS: SYNTHROID 75 mcg TAB PO SCH (16:10)
--- NOTE | 2020-05-28 17:54 | PCM.PROG ---
Progress Note - Progress Note for Day of Date of Exam: 05/28/20 - Subjective Subjective: PT IS 84 WF ADMITTED WITH ABDOMINAL PAIN, BLOATING, N/V/D. PT HAS HX OF COLITIS AND RECENTLY FAILED TREATMENT FOR UTI DUE TO PO MEDICATION INTOLERANT. PT WAS HYPONATREMIC AND HYPOKALEMIC ON ADMISSION WITH IMPROVING HYDRATION. PT HAD REPEAT UC ON THIS ADMISSION, CURRENTLY ON MEROPENEM FROM UC REPORT FROM05/19. PT IS ON PPI THERAPY WITH DR CORDERO CONSULTING. PT IS NPO FOR UPPER GI THIS MORNING. PT DENIES ANY CHEST PAIN OR SOB. PT CO LEFT SHOULDER AND LEFT ELBOW TENDERNESS WITHOUT KNOWN - Past Medical Family Social History Past Med/Fam/Surg Hx: No changes since H&P Allergies: Allergies No Known Drug Allergies Allergy (Verified 02/11/20 10:48) - Review of Systems ROS: No change since H&P - Vital Signs and I&O's Vital Signs: Temperature 97.8 F Pulse Rate [Left Radial] 59 Respiratory Rate 18 Blood Pressure [Left Arm] 97/59 O2 Sat by Pulse Oximetry 98 Intake and Output: Intake & Output 05/26/20 05/27/20 05/28/20 05/29/20 11:59 11:59 11:59 11:59 Intake Total 1345 / 1345 2023 470 / 470 Balance 1345 / 1345 2023 470 / 470 - Physical Exam Oriented: Person Eyes: Normal Ear: Normal Nose: Normal Throat: Dry Respiratory: Diminished : Normal Auscultation: Bowel Sounds: Normal Tenderness: Diffuse, Moderate Skin: Decreased Turgur Musculoskeletal: Left, Shoulder, Back:Lumbar, Swelling, Tender, Motor Deficit Affect: Depressed Speech Pattern: Clear, Delayed - Laboratory and Diagnostics Result Diagrams: 05/28/20 05:51 05/28/20 05:51 Labs: 05/26/20 14:51 Blood Blood Culture - Preliminary 05/26/20 14:40 Blood Blood Culture - Preliminary 05/27/20 16:25 Stool Stool Culture - Preliminary 05/27/20 16:25 Stool - Final 05/26/20 16:45 Urine,Clean Catch Urine Culture - Final Laboratory WBC 2.8 X10^3/uL (3.6-10.0) L 05/28/20 05:51 RBC 2.79 X10^6/uL (3.5-5.4) L 05/28/20 05:51 Hgb 9.5 g/dL (12.0-16.0) L 05/28/20 05:51 Hct 27.8 % (36.0-47.0) L 05/28/20 05:51 MCV 99.7 fL (80.0-100.0) 05/28/20 05:51 MCH 34.1 pg (27.0-34.0) H 05/28/20 05:51 MCHC 34.2 g/dL (33.0-35.0) 05/28/20 05:51 RDW 15.9 % (11.6-16.5) 05/28/20 05:51 Plt Count 83 X10^3/uL (150.0-450.0) L 05/28/20 05:51 MPV 8.8 fL (7.4-11.0) 05/28/20 05:51 Neut % (Auto) 70.9 % (42.0-75.0) 05/28/20 05:51 Lymph % (Auto) 19.0 % (21.0-51.0) L 05/28/20 05:51 [place] % (Auto) 9.0 % (0.0-13.0) 05/28/20 05:51 Eos % (Auto) 0.2 % (0.9-2.9) L 05/28/20 05:51 Baso % (Auto) 0.9 % (0.2-1.0) 05/28/20 05:51 Neut # (Auto) 2.0 x10^3/uL (2.2-4.8) L 05/28/20 05:51 Lymph # (Auto) 0.5 X10^3/uL (1.3-2.9) L 05/28/20 05:51 [place] # (Auto) 0.3 x10^3/uL (0.3-0.8) 05/28/20 05:51 Eos # (Auto) 0.0 x10^3/uL (0.0-0.2) 05/28/20 05:51 Baso # (Auto) 0.0 X10^3/uL (0.0-0.1) 05/28/20 05:51 Absolute Nucleated RBC 0.3 /100WBC 05/28/20 05:51 Sodium 131 mmol/L (136-145) L 05/28/20 05:51 Corrected Sodium TNP 05/28/20 05:51 Potassium 5.2 mmol/L (3.5-5.1) H 05/28/20 05:51 Chloride 102 mmol/L (98-107) 05/28/20 05:51 Carbon Dioxide 21.2 mmol/L (21-32) 05/28/20 05:51 BUN 13 mg/dL (7-18) 05/28/20 05:51 Creatinine 1.06 mg/dL (0.55-1.02) H 05/28/20 05:51 Est GFR (MDRD) Af Amer > 60 (>60) 05/28/20 05:51 Est GFR (MDRD) Non-Af 53 (>60) L 05/28/20 05:51 Glucose 85 mg/dL (65-99) 05/28/20 05:51 Calcium 7.6 mg/dL (8.5-10.1) L 05/28/20 05:51 Corrected Calcium 8.9 mg/dL (8.5-10.1) 05/28/20 05:51 Magnesium 2.3 mg/dL (1.7-2.9) 05/27/20 05:20 Iron 43 ug/dL (50-175) L 05/27/20 05:20 Transferrin 134 mg/dL (202-364) L 05/27/20 05:20 Ferritin 121 ng/mL (8-252) 05/27/20 05:20 Total Bilirubin 0.50 mg/dL (0.2-1.0) 05/28/20 05:51 AST 20 Units/L (15-37) 05/28/20 05:51 ALT 7 Units/L (12-78) L 05/28/20 05:51 Alkaline Phosphatase 30 Units/L (46-116) L 05/28/20 05:51 B-Natriuretic Peptide 201 pg/mL (0-79) H 05/26/20 14:40 Total Protein 4.5 g/dL (6.4-8.2) L 05/28/20 05:51 Albumin 2.4 g/dL (3.4-5.0) L 05/28/20 05:51 Globulin 2.1 g/dL (2.5-4.5) L 05/28/20 05:51 Albumin/Globulin Ratio 1.1 Ratio (1.1-2.1) 05/28/20 05:51 Amylase 35 Units/L (25-115) 05/26/20 14:40 Lipase 218 Units/L (73-393) 05/26/20 14:40 Vitamin B12 857 pg/mL (193-986) 05/27/20 05:20 Folate 19.7 ng/mL (>8.6) 05/27/20 05:20 Specimen Type Clean catch urine 05/26/20 16:45 Urine Color Yellow (YELLOW) 05/26/20 16:45 Urine Appearance Clear (CLEAR) 05/26/20 16:45 Urine pH 5.0 (5.0 - 8.0) 05/26/20 16:45 Ur Specific [place] 1.025 (1.000-1.030) 05/26/20 16:45 Urine Protein 2+ (NEGATIVE) 05/26/20 16:45 Urine Glucose (UA) Negative (NEGATIVE) 05/26/20 16:45 Urine Ketones 2+ (NEGATIVE) 05/26/20 16:45 Urine Occult Blood 1+ (NEGATIVE) 05/26/20 16:45 Urine Nitrite Negative (NEGATIVE) 05/26/20 16:45 Urine Bilirubin 2+ (NEGATIVE) 05/26/20 16:45 Urine Urobilinogen Normal (NORMAL) 05/26/20 16:45 Ur Leukocyte Esterase 1+ (NEGATIVE) 05/26/20 16:45 Urine RBC 0-2 /HPF (0-3) 05/26/20 16:45 Urine WBC 0-2 /HPF (0-5) 05/26/20 16:45 Ur Squamous Epith Cells Negative /HPF (NEGATIVE) 05/26/20 16:45 Urine Bacteria Negative /HPF (NEGATIVE) 05/26/20 16:45 Ur Culture Indicated? No/not indicated 05/26/20 16:45 Stool Description 1g loose 05/27/20 16:25 Stl Occult Blood (IFOB) Negative (NEGATIVE) 05/27/20 16:25 Stool for White Cells Positive (NEGATIVE) A 05/27/20 16:25 Stl C. diff Tox B Gene Positive (NEGATIVE) A 05/27/20 16:25 Stl C. diff [id number] Presumptive negative (NEGATIVE) 05/27/20 16:25 Stool H. pylori Ag Negative (NEGATIVE) 05/27/20 16:25 C. difficile Toxin A&B Negative (NEGATIVE) 05/27/20 16:25 SARS CoV-2 RNA Rapid ELYSIA Negative (NEGATIVE) 05/26/20 17:22 Tissue Pathology To follow 05/28/20 12:09 - Plan (1) Acute gastroenteritis Status: Acute Plan: IV HYDRATION. STRICT I&O, PPI THERAPY. IV ATBX, ABD ON EXAM, AM LABS, BC AND REPEAT UC. VERIFY HOME MEDICATION, PT CONSULT. GI CONSULT (2) Leukemia Status: Chronic (3) Diabetes Status: Chronic (4) GERD (gastroesophageal reflux disease) Status: Chronic Qualifiers: Esophagitis presence: esophagitis presence not specified Qualified Code(s): K21.9 - Gastro-esophageal reflux disease without esophagitis (5) UTI (urinary tract infection) Status: Acute (6) Hypokalemia Status: Acute (7) Failure to thrive Status: Acute Qualifiers: Failure to thrive age range: in adult Qualified Code(s): R62.7 - Adult failure to thrive (8) Left shoulder pain Status: Acute Plan: XRAY
[2020-05-29] MEDS: MERREM VIAL 500 MG in NS 100 ML IV + SPIKE MINIBAG* 100 ML IV SCH ×3 (05:43→21:02)
--- NOTE | 2020-05-29 08:19 | RAD ---
HISTORYAcute left upper extremity painSTUDYLeft wrist three viewsCOMPARISONNoneFINDINGSThe bones are osteopenic. There is no evidence for fracture, lytic, or blastic lesion. No erosive arthritis or soft tissue abnormalities identified. Degenerative joint disease is present in the 1st carpometacarpal joint is. Soft tissue arterial vascular calcifications are identified. Carpal bones are intact and normally aligned. The distal radius and distal ulna are intact.IMPRESSIONNo acute findingsOsteopeniaDegenerative joint disease 1st carpometacarpal jointElectronically signed by: KATE ACOSTA (May 29, 2020 08:16:41)
--- NOTE | 2020-05-29 08:26 | RAD ---
HISTORYEdema, acute left upper extremity painSTUDYLeft elbow two viewsCOMPARISONNoneFINDINGSThere is no evidence for acute bone or acute joint abnormality. No fracture, lytic, or blastic lesion is identified. No joint erosion or joint effusion is identified. No periarticular soft tissue abnormality is identified.IMPRESSIONNo significant abnormality identifiedElectronically signed by: KATE ACOSTA (May 29, 2020 08:24:35)
--- NOTE | 2020-05-29 08:29 | RAD ---
HISTORYAcute left upper extremity painSTUDYLeft shoulder three viewsCOMPARISONNoneFINDINGSThe clavicle, AC joint, scapula, left upper ribs and proximal humerus are intact. There is relatively severe glenohumeral degenerative joint disease present.IMPRESSIONRelatively severe glenohumeral joint degenerative joint diseaseElectronically signed by: KATE ACOSTA (May 29, 2020 08:25:22)
[2020-05-29] MEDS ORDERED: K-DUR TAB 20 MEQ PO SCH (09:00)
[2020-05-29] MEDS ORDERED: LASIX IVP SCH (09:00)
[2020-05-29] MEDS: SINEMET (PLAIN) 10/100 MG PO SCH ×2 (09:05→20:59)
[2020-05-29] MEDS: PROTONIX INJ 40 MG VIAL IVP SCH ×2 (09:06→20:59)
[2020-05-29 09:39] LABS: BASOPHILS % (AUTO) 0.8 % (0.2-1.0); EOSINOPHILS % (AUTO) 0.1 % (0.9-2.9); LYMPHOCYTES # (AUTO) 0.5 X10^3/uL (1.3-2.9); LYMPHOCYTES % (AUTO) 16.7 % (21.0-51.0); MEAN CORPUSCULAR HEMOGLOBIN 33.5 pg (27.0-34.0); MEAN CORPUSCULAR HGB CONC 33.3 g/dL (33.0-35.0); MEAN CORPUSCULAR VOLUME 100.5 fL (80.0-100.0); MEAN PLATELET VOLUME 8.5 fL (7.4-11.0); MONOCYTES # (AUTO) 0.3 x10^3/uL (0.3-0.8); MONOCYTES % (AUTO) 11.7 % (0.0-13.0); NEUTROPHILS % (AUTO) 70.7 % (42.0-75.0); PLATELET COUNT 81 X10^3/uL (150.0-450.0); RED BLOOD COUNT 2.69 X10^6/uL (3.5-5.4); RED CELL DISTRIBUTION WIDTH 15.7 % (11.6-16.5); WHITE BLOOD COUNT 2.8 X10^3/uL (3.6-10.0)
[2020-05-29 10:00] LABS: ALANINE AMINOTRANSFERASE 8 Units/L (12-78); ALBUMIN 2.4 g/dL (3.4-5.0); ALKALINE PHOSPHATASE 26 Units/L (46-116); ASPARTATE AMINO TRANSFERASE 19 Units/L (15-37); BLOOD UREA NITROGEN 12 mg/dL (7-18); CALCIUM 7.9 mg/dL (8.5-10.1); CARBON DIOXIDE 23.8 mmol/L (21-32); CHLORIDE 101 mmol/L (98-107); COR CA(FOR HYPOALB) 9.2 mg/dL (8.5-10.1); CREATININE 1.08 mg/dL (0.55-1.02); SODIUM 133 mmol/L (136-145); TOTAL PROTEIN 4.5 g/dL (6.4-8.2); eGFR NON BLACK RACES 51 (>60)
[2020-05-29] MEDS: LOPRESSOR TAB 25 MG PO SCH (11:04)
[2020-05-29] MEDS: ZESTRIL TAB 20 MG PO SCH (11:05)
[2020-05-29] MEDS: ZOCOR TAB 20 MG PO SCH (11:56)
[2020-05-29] MEDS: SOLU-Medrol 40 MG VIAL IVP SCH ×3 (11:57→21:02)
--- NOTE | 2020-05-29 13:03 | RAD ---
CHEST, 1 VIEWHISTORY: SOBStudy: Single view of the chest.Comparison:NoneFindings:The cardiomediastinal silhouette is normal.No focal consolidations, pleural effusions or pneumothorax. Osseous structures demonstrate no acute abnormality.IMPRESSION:1. No acute cardiopulmonary process.Electronically signed by: GAYATHRI CONRAD (May 29, 2020 12:59:00)
[2020-05-29] MEDS: NS 1000 ML 1,000 ML IV SCH ×2 (16:50)
[2020-05-29] MEDS: SYNTHROID 75 mcg TAB PO SCH (17:14)
[2020-05-30] MEDS: NS 1000 ML 1,000 ML IV SCH ×3 (05:16→19:58)
[2020-05-30] MEDS: MERREM VIAL 500 MG in NS 100 ML IV + SPIKE MINIBAG* 100 ML IV SCH ×3 (05:17→21:42)
[2020-05-30 06:17] LABS: ALANINE AMINOTRANSFERASE 12 Units/L (12-78); ALBUMIN 2.3 g/dL (3.4-5.0); ALKALINE PHOSPHATASE 30 Units/L (46-116); ASPARTATE AMINO TRANSFERASE 17 Units/L (15-37); BLOOD UREA NITROGEN 12 mg/dL (7-18); CALCIUM 7.9 mg/dL (8.5-10.1); CARBON DIOXIDE 22.4 mmol/L (21-32); CHLORIDE 99 mmol/L (98-107); COR CA(FOR HYPOALB) 9.3 mg/dL (8.5-10.1); COR NA(FOR HYPERGLY) 132 mmol/L (136-145); CREATININE 1.02 mg/dL (0.55-1.02); SODIUM 130 mmol/L (136-145); TOTAL PROTEIN 4.6 g/dL (6.4-8.2); eGFR NON BLACK RACES 55 (>60)
[2020-05-30 06:18] LABS: BASOPHILS % (AUTO) 0.2 % (0.2-1.0); HEMATOCRIT 25.8 % (36.0-47.0); HEMOGLOBIN 8.6 g/dL (12.0-16.0); LYMPHOCYTES # (AUTO) 0.2 X10^3/uL (1.3-2.9); MEAN CORPUSCULAR HEMOGLOBIN 33.1 pg (27.0-34.0); MEAN CORPUSCULAR HGB CONC 33.3 g/dL (33.0-35.0); MEAN CORPUSCULAR VOLUME 99.4 fL (80.0-100.0); MEAN PLATELET VOLUME 9.2 fL (7.4-11.0); MONOCYTES # (AUTO) 0 x10^3/uL (0.3-0.8); MONOCYTES % (AUTO) 3.4 % (0.0-13.0); NEUTROPHILS # (AUTO) 0.8 x10^3/uL (2.2-4.8); NEUTROPHILS % (AUTO) 76.4 % (42.0-75.0); PLATELET COUNT 74 X10^3/uL (150.0-450.0); RED CELL DISTRIBUTION WIDTH 15.6 % (11.6-16.5)
[2020-05-30 06:38] LABS: WHITE BLOOD COUNT 1.1 X10^3/uL (3.6-10.0)
[2020-05-30] MEDS: ZOCOR TAB 20 MG PO SCH (09:21)
[2020-05-30] MEDS: SINEMET (PLAIN) 10/100 MG PO SCH ×2 (09:21→20:44)
[2020-05-30] MEDS: PROTONIX INJ 40 MG VIAL IVP SCH ×2 (09:21→20:46)
[2020-05-30] MEDS: IMATINIB 400 MG PO SCH (11:20)
[2020-05-30] MEDS: ZESTRIL TAB 20 MG PO SCH (12:16)
[2020-05-30] MEDS: LOPRESSOR TAB 25 MG PO SCH (12:16)
[2020-05-30] MEDS: FOLIC ACID TAB 1 MG PO SCH (14:27)
[2020-05-30] MEDS: K-DUR TAB 20 MEQ PO SCH (14:27)
[2020-05-30] MEDS: SYNTHROID 75 mcg TAB PO SCH (17:07)
[2020-05-31] MEDS: MERREM VIAL 500 MG in NS 100 ML IV + SPIKE MINIBAG* 100 ML IV SCH ×3 (05:13→21:00)
[2020-05-31 08:11] LABS: LYMPHOCYTES # (AUTO) 0.3 X10^3/uL (1.3-2.9); NEUTROPHILS # (AUTO) 3.7 x10^3/uL (2.2-4.8); WHITE BLOOD COUNT 4.4 X10^3/uL (3.6-10.0)
[2020-05-31 08:14] LABS: BASOPHILS % (AUTO) 0.3 % (0.2-1.0); EOSINOPHILS % (AUTO) 0.1 % (0.9-2.9); HEMATOCRIT 28.3 % (36.0-47.0); HEMOGLOBIN 9.9 g/dL (12.0-16.0); MEAN CORPUSCULAR HEMOGLOBIN 34.2 pg (27.0-34.0); MEAN CORPUSCULAR HGB CONC 34.9 g/dL (33.0-35.0); MEAN CORPUSCULAR VOLUME 97.9 fL (80.0-100.0); MEAN PLATELET VOLUME 8.8 fL (7.4-11.0); MONOCYTES # (AUTO) 0.4 x10^3/uL (0.3-0.8); MONOCYTES % (AUTO) 9.4 % (0.0-13.0); NEUTROPHILS % (AUTO) 83.2 % (42.0-75.0); PLATELET COUNT 103 X10^3/uL (150.0-450.0); RED BLOOD COUNT 2.89 X10^6/uL (3.5-5.4); RED CELL DISTRIBUTION WIDTH 15.6 % (11.6-16.5)
[2020-05-31 08:20] LABS: ALBUMIN 2.8 g/dL (3.4-5.0); CALCIUM 8.3 mg/dL (8.5-10.1); CARBON DIOXIDE 26.6 mmol/L (21-32); COR CA(FOR HYPOALB) 9.3 mg/dL (8.5-10.1); CREATININE 1.18 mg/dL (0.55-1.02); TOTAL PROTEIN 5.3 g/dL (6.4-8.2)
[2020-05-31] MEDS: FOLIC ACID TAB 1 MG PO SCH (08:26)
[2020-05-31] MEDS: K-DUR TAB 20 MEQ PO SCH (08:26)
[2020-05-31] MEDS: SINEMET (PLAIN) 10/100 MG PO SCH ×2 (08:26→20:14)
[2020-05-31] MEDS: PROTONIX INJ 40 MG VIAL IVP SCH ×2 (08:26→20:15)
[2020-05-31] MEDS: ZOCOR TAB 20 MG PO SCH (08:27)
[2020-05-31] MEDS: ZESTRIL TAB 20 MG PO SCH (08:27)
[2020-05-31] MEDS: IMATINIB 400 MG PO SCH (08:27)
[2020-05-31] MEDS: LOPRESSOR TAB 25 MG PO SCH (08:27)
[2020-05-31] MEDS: NS 1000 ML 1,000 ML IV SCH (08:27)
[2020-05-31] MEDS: SYNTHROID 75 mcg TAB PO SCH (16:47)
[2020-05-31] MEDS: COLACE CAP 100 MG PO SCH (20:14)
[2020-06-01] MEDS: NS 1000 ML 1,000 ML IV SCH ×3 (04:30→12:02)
[2020-06-01] MEDS: MERREM VIAL 500 MG in NS 100 ML IV + SPIKE MINIBAG* 100 ML IV SCH ×3 (05:05→21:30)
[2020-06-01 06:43] LABS: ALANINE AMINOTRANSFERASE 11 Units/L (12-78); ALBUMIN 2.4 g/dL (3.4-5.0); ALKALINE PHOSPHATASE 27 Units/L (46-116); ASPARTATE AMINO TRANSFERASE 17 Units/L (15-37); BLOOD UREA NITROGEN 16 mg/dL (7-18); CALCIUM 8.1 mg/dL (8.5-10.1); CARBON DIOXIDE 26.2 mmol/L (21-32); CHLORIDE 102 mmol/L (98-107); COR CA(FOR HYPOALB) 9.4 mg/dL (8.5-10.1); COR NA(FOR HYPERGLY) 135 mmol/L (136-145); SODIUM 134 mmol/L (136-145); TOTAL PROTEIN 4.6 g/dL (6.4-8.2); eGFR NON BLACK RACES 56 (>60)
[2020-06-01] MEDS ORDERED: ZESTRIL TAB 20 MG ONE (08:11)
[2020-06-01] MEDS: IMATINIB 400 MG PO SCH (08:29)
[2020-06-01] MEDS: ZOCOR TAB 20 MG PO SCH (08:29)
[2020-06-01] MEDS: LOPRESSOR TAB 25 MG PO SCH (08:29)
[2020-06-01] MEDS: K-DUR TAB 20 MEQ PO SCH (08:29)
[2020-06-01] MEDS: PROTONIX INJ 40 MG VIAL IVP SCH ×2 (08:29→21:30)
[2020-06-01] MEDS: SINEMET (PLAIN) 10/100 MG PO SCH ×2 (08:30→21:30)
[2020-06-01] MEDS: FOLIC ACID TAB 1 MG PO SCH (08:30)
[2020-06-01] MEDS: ZESTRIL TAB 20 MG PO SCH (08:30)
[2020-06-01 08:46] LABS: BASOPHILS % (AUTO) 0.3 % (0.2-1.0); EOSINOPHILS % (AUTO) 0.2 % (0.9-2.9); HEMATOCRIT 26.5 % (36.0-47.0); HEMOGLOBIN 8.8 g/dL (12.0-16.0); LYMPHOCYTES # (AUTO) 0.5 X10^3/uL (1.3-2.9); LYMPHOCYTES % (AUTO) 17.2 % (21.0-51.0); MEAN CORPUSCULAR HEMOGLOBIN 33.3 pg (27.0-34.0); MEAN CORPUSCULAR HGB CONC 33.3 g/dL (33.0-35.0); MEAN CORPUSCULAR VOLUME 100.1 fL (80.0-100.0); MEAN PLATELET VOLUME 9.8 fL (7.4-11.0); MONOCYTES # (AUTO) 0.4 x10^3/uL (0.3-0.8); MONOCYTES % (AUTO) 13.1 % (0.0-13.0); NEUTROPHILS # (AUTO) 2.2 x10^3/uL (2.2-4.8); NEUTROPHILS % (AUTO) 69.2 % (42.0-75.0); PLATELET COUNT 107 X10^3/uL (150.0-450.0); RED BLOOD COUNT 2.65 X10^6/uL (3.5-5.4); RED CELL DISTRIBUTION WIDTH 15.8 % (11.6-16.5); WHITE BLOOD COUNT 3.1 X10^3/uL (3.6-10.0)
--- NOTE | 2020-06-01 13:22 | RAD ---
HISTORYConstipationSTUDYKUBCOMPARISONNoneFINDINGSThe abdominal gas pattern is nonspecific and nonobst ructive. There is a moderately large amount of stool within the colon suggestive of possible constipa tion. No abnormal masses or abnormal calcifications are identified. Regional skeleton is intact.IMPRE SSIONModerately large amount of stool throughout the colon suggestive of possible constipationElectro nically signed by: KATE ACOSTA (Jun 01, 2020 13:20:26)
[2020-06-01] MEDS ORDERED: DULCOLAX SUPPOSITORY 10 MG RECTAL ONE (13:27)
[2020-06-01] MEDS: SYNTHROID 75 mcg TAB PO SCH (16:12)
[2020-06-01] MEDS: COLACE CAP 100 MG PO SCH (21:30)
[2020-06-02] MEDS: NS 1000 ML 1,000 ML IV SCH ×2 (02:14→04:12)
[2020-06-02] MEDS: MERREM VIAL 500 MG in NS 100 ML IV + SPIKE MINIBAG* 100 ML IV SCH (05:43)
[2020-06-02 06:08] LABS: BASOPHILS % (AUTO) 0.2 % (0.2-1.0); EOSINOPHILS % (AUTO) 0.9 % (0.9-2.9); HEMATOCRIT 28.6 % (36.0-47.0); HEMOGLOBIN 9.8 g/dL (12.0-16.0); LYMPHOCYTES # (AUTO) 0.8 X10^3/uL (1.3-2.9); LYMPHOCYTES % (AUTO) 23.9 % (21.0-51.0); MEAN CORPUSCULAR HEMOGLOBIN 33.8 pg (27.0-34.0); MEAN CORPUSCULAR HGB CONC 34.1 g/dL (33.0-35.0); MEAN CORPUSCULAR VOLUME 99.3 fL (80.0-100.0); MEAN PLATELET VOLUME 9.1 fL (7.4-11.0); MONOCYTES # (AUTO) 0.4 x10^3/uL (0.3-0.8); MONOCYTES % (AUTO) 12.6 % (0.0-13.0); NEUTROPHILS # (AUTO) 2.2 x10^3/uL (2.2-4.8); NEUTROPHILS % (AUTO) 62.4 % (42.0-75.0); PLATELET COUNT 93 X10^3/uL (150.0-450.0); RED BLOOD COUNT 2.88 X10^6/uL (3.5-5.4); RED CELL DISTRIBUTION WIDTH 15.6 % (11.6-16.5); WHITE BLOOD COUNT 3.5 X10^3/uL (3.6-10.0)
[2020-06-02 06:30] LABS: ALANINE AMINOTRANSFERASE 10 Units/L (12-78); ALBUMIN 2.1 g/dL (3.4-5.0); ALKALINE PHOSPHATASE 26 Units/L (46-116); ASPARTATE AMINO TRANSFERASE 18 Units/L (15-37); BLOOD UREA NITROGEN 15 mg/dL (7-18); CALCIUM 7.8 mg/dL (8.5-10.1); CARBON DIOXIDE 24.5 mmol/L (21-32); CHLORIDE 103 mmol/L (98-107); COR CA(FOR HYPOALB) 9.3 mg/dL (8.5-10.1); SODIUM 134 mmol/L (136-145); TOTAL PROTEIN 4.2 g/dL (6.4-8.2); eGFR NON BLACK RACES > 60 (>60)
[2020-06-02 08:35] VITALS: BP 105/51
[2020-06-02] MEDS ORDERED: ZESTRIL TAB 20 MG ONE (09:24)
[2020-06-02] MEDS: ZOCOR TAB 20 MG PO SCH (09:27)
[2020-06-02] MEDS: FOLIC ACID TAB 1 MG PO SCH (09:28)
[2020-06-02] MEDS: LOPRESSOR TAB 25 MG PO SCH (09:28)
[2020-06-02] MEDS: PROTONIX INJ 40 MG VIAL IVP SCH (09:29)
[2020-06-02] MEDS: SINEMET (PLAIN) 10/100 MG PO SCH (09:29)
[2020-06-02] MEDS: ZESTRIL TAB 20 MG PO SCH (09:29)
[2020-06-02] MEDS: K-DUR TAB 20 MEQ PO SCH (09:29)
[2020-06-02] MEDS: IMATINIB 400 MG PO SCH (09:38)
[2020-06-03 06:46] LABS: HEPATITIS B SURFACE ANTIGEN Negative (Negative)
== END 2020-06-02 11:20 | disposition home health service (06) | DRG 392 ==
LOC: MED/SURG
PROVIDERS: ADMIT Internal Medicine; ATTEND Internal Medicine